=== PATIENT | male | born 1950 | race Caucasian/White ===

== ENCOUNTER 2024-03-11 22:16 | Emergency (ER) | payer OTHER, SELFPAY ==
[2024-03-11 22:20] VITALS: BP 186/103
[2024-03-11 22:38] LABS: Urine Albumin Negative (Neg - Trace); Urine Bilirubin Negative (Negative); Urine Character Clear (Clear); Urine Color Straw; Urine Glucose Negative (Negative); Urine Ketone Negative (Negative); Urine Leukocyte Negative (Negative); Urine Nitrite Negative (Negative); Urine Occult Blood Negative (Negative); Urine Specific Gravity 1.005 (<1.030); Urine Urobilinogen Negative (Neg - 1+)
[2024-03-12 00:36] VITALS: BP 138/78
[2024-03-12 00:37] LABS: % Basophils 0.9 % (0-2); % Eosinophils 2.9 % (0-6); % Immature Granulocytes 0.4 % (0-0.5); % Monocytes 6.9 % (1.7-9.3); % Neutrophils 67.9 % (42.2-75.2); Absolute Basophils 0.1 10^3/uL (0-0.2); Absolute Eosinophils 0.3 10^3/uL (0-0.7); Absolute Immature Granulocytes 0.1 10^3/uL (0-0.05); Absolute Lymphocytes 2.4 10^3/uL (1.2-3.4); Absolute Monocytes 0.8 10^3/uL (0.1-0.6); Absolute Neutrophils 7.7 10^3/uL (1.4-6.5); Hemoglobin 11.5 g/dL (13.0-18.0); Mean Corp Hgb Conc. 35.9 g/dL (33.0-37.0); Mean Corpuscular Hgb 29.6 pg (27.0-31.0); Mean Corpuscular Volume 82.5 fL (80.0-94.0); Mean Platelet Volume 10.1 fL (7.4-10.4); Nucleated Red Blood Cells % 0 % (-); Platelet Count 255 10^3/uL (130-400); Red Blood Cell Count 3.88 10^6/uL (4.70-6.10); Red Cell Dist. Width 12.4 % (11.5-14.5); White Blood Cell Count 11.4 10^3/uL (4.8-10.8)
--- NOTE | 2024-03-12 00:47 | ED.GENMED ---
History of Present Illness
General
Chief Complaint: Fever
Source: patient
Exam Limitations: none
Time Seen by Provider: 03/11/24 23:27
Travel History
Have you had any contact with someone who has COVID-19?: No
Do you have any symptoms of coronavirus? Fever > 100 degrees, chills, cough, shortness of breath, sore throat, loss of taste or smell, muscle aches, or headache?: No
History of Present Illness
History of Present Illness:
73-year-old male with history of cardiac disease [id number] diabetes hypertension presents with the onset of diffuse body tremors weakness feeling off and subtle confusion. Once this started he had 2 large bowel movements these were
formed. He denies a cough. He denies significant headache. He states since being here he is felt much better. He denies any urinary symptoms. No other complaints at this time
Past History
Past History
ED Past Medical History: CAD, HTN, Hypercholesterolemia, NIDDM, [place] and Other (Presumed optic neuritis right eye July 2023)
ED Past Surgical History: Cardiac, Orthopedic and Other
Patient has exhibited threatening behavior?: No
PSI?: No
Social History
Tobacco: Non-smoker
Alcohol: Occasional
Drug: None
Personal:
Living: with family
Employment: Employed
Family History
Family History: Other (Reviewed and noncontributory)
Phy Exam
Physical Exam
Physical Exam:
General: Well-appearing male nontoxic no acute respiratory distress HEENT: Normocephalic atraumatic neck is supple
Pupils equal round reactive to light
Heart: Regular rate and rhythm no murmurs lungs: Clear to auscultation bilaterally no wheezing
Neurologic exam: Alert and oriented x 3 no facial asymmetry strength on exam no meningeal signs no tremor
Extremities: No cyanosis or edema
Course
Orders/Labs/Results
Orders:
Orders
06/07/24 22:24
ECG [Electrocardiogram (*1)] Urgent
Reason for Study: Vertigo / Dizzy
03/11/24 22:25
CT Head W/o Iv Contrast Urgent
Comment:
Reason For Exam: unsteadiness
EKG- Treatment ONCE
03/11/24 22:29
Urine Culture Reflexed from UA [Urinalysis Reflex To Culture] Urgent
Date Specimen was Collected: 03/11/24
Time Specimen was Collected: 22:25
03/11/24 23:33
CMP [Comprehensive Metabolic Panel] Urgent
Complete Blood Count/With Diff Urgent
03/12/24 00:00
CR Chest - 2 Views Urgent
Reason For Exam: fever
Abnormal Lab Results
03/12/24
00:20
WBC 11.4 H 10^3/uL
(4.8-10.8)
RBC 3.88 L 10^6/uL
(4.70-6.10)
Hgb 11.5 L g/dL
(13.0-18.0)
Hct 32.0 L %
(39.0-52.0)
Abs Immat Gran (auto) 0.1 H 10^3/uL
(0-0.05)
Absolute Neuts (auto) 7.7 H 10^3/uL
(1.4-6.5)
Absolute Monos (auto) 0.8 H 10^3/uL
(0.1-0.6)
BUN 24 H mg/dl
(9-20)
Glucose 140 H mg/dl
(70-99)
03/12/24 00:20
03/12/24 00:20
Vital Signs
Initial and Last Documented VS:
Initial Vital Signs
Temp Pulse Resp BP Pulse Ox
99.7 F 98 18 186/103 98
03/11/24 22:20 03/11/24 22:20 03/11/24 22:20 03/11/24 22:20 03/11/24 22:20
Last Documented Vital Signs
Temp Pulse Resp BP Pulse Ox
98.5 F 90 18 138/78 95
03/11/24 23:30 03/12/24 00:36 03/12/24 00:36 03/12/24 00:36 03/12/24 00:36
MDM/Problems Addressed
Differential Diagnosis Includes:
Patient notes onset of tremors not feeling well fatigue. Question possible viral illness versus infectious process versus electrolyte abnormality patient now feels nearly back to baseline. Labs pending CT pending chest x-ray pending
*Critical Care Note
Total Time (30-74mins, 75-104mins- exclusive of procedures): Not Applicable
Update Note
Update Note:
Patient reexamined back to normal. Has no complaints offer upon reassessment looks nontoxic. Workup here without significant finding CT negative chest x-ray clear hemoglobin stable at 11.5. At this point no indication for admission to hospital.
Return precautions were given otherwise he was advised to follow-up with family doctor question possible viral illness
ED Attending Note
-
Portions of this chart may have been created with voice recognition software.� Occasional wrong word or��sound alike� substitutions may have occurred due to the inherent limitations of voice recognition software.
Discharge Plan
Departure
Patient Disposition: Home (Routine Discharge)
Date of Disposition: 03/12/24
Time of Disposition: 01:30
Patient with high blood pressure during this ER visit?: No
Discharge Problem:
Acute viral syndrome
Instructions: Viral Syndrome (DC)
Prescriptions:
No Action
clopidogrel 75 MG tablet
75 mg PO DAILY
aspirin 81 MG tablet,delayed release (DR/EC)
81 mg PO DAILY
flaxseed oil 1,000 MG capsule
3,000 mg PO DAILY
fluticasone propionate 1 SPRAY spray,suspension
1 spray intranasal DAILY PRN (Reason: breathing)
Patient Comments:
PRN; taken several months ago
ezetimibe 10 MG tablet
10 mg PO HS
tamsulosin 0.4 MG capsule
0.8 mg PO DAILY
metformin 500 MG tablet
1,000 mg PO BID@0800,1700
amitriptyline 10 MG tablet
10 mg PO HS
nitroglycerin 0.4 MG tablet, sublingual
0.4 mg sublingual [id number] PRN (Reason: chest pain)
amlodipine 10 MG tablet
10 mg PO DAILY Qty: 30 3RF
rosuvastatin 20 MG tablet
20 mg PO QPM 0RF
ascorbic acid (vitamin C) [Vitamin C] 1,000 MG tablet
3,000 mg PO DAILY
cholecalciferol (vitamin D3) [Vitamin D3] 25 mcg (1,000 unit) Tablet
50 mcg PO DAILY
multivitamin Tablet
1 tab PO DAILY
carvedilol 25 mg tablet
25 mg PO BID
sildenafil 50 mg Tablet
50 mg PO DAILYPRN PRN (Reason: ED)
famotidine 20 mg tablet
20 mg PO BIDPRN PRN (Reason: acid reflux/heartburn)
levothyroxine 125 mcg tablet
125 mcg PO DAILY AT 0700
finasteride 5 mg tablet
5 mg PO DAILY
diazepam 5 mg tablet
5 mg PO HSPRN PRN (Reason: sleep)
Patient Comments:
07/30/2023: last filled 06/09/23, 14 tabs for 14 days from [facility]#[id number]
valsartan 160 mg tablet
160 mg PO BID
coenzyme Q10 [Co Q-10] 100 mg Capsule
100 mg PO DAILY
Ozempic 0.25 mg or 0.5 mg (2 mg/3 mL) pen injector
0.5 mg SC CAMACHO
Referrals:
Pauline Zeng MD [Family Provider] -
Activity Restrictions/Additional Instructions:
Rest. Drink plenty of fluids. Use Tylenol as needed for fever. Return if worse otherwise follow-up with family doctor
Interventions
Interventions:
*Risk Screen - Suicide Last Done: 03/11/24 23:15
*General Assessment Last Done: 03/11/24 22:20
*Neglect/Abuse Screening Last Done: 03/11/24 22:20
ED- Fall Risk Assessment Last Done: 03/11/24 23:15
ED- Neurological Assessment Last Done: 03/11/24 23:15
ED-Skin Assessment Last Done: 03/11/24 23:15
Discharge Date and Time
Print Language: KYRGYZ
[2024-03-12 00:53] LABS: ALT (SGPT) 18 U/L (0-50); AST (SGOT) 21 U/L (17-59); Albumin 4.3 g/dl (3.5-5.0); Alkaline Phosphatase 51 U/L (38-126); Blood Urea Nitrogen 24 mg/dl (9-20); Calcium 9.9 mg/dl (8.4-10.2); Carbon Dioxide 24 mmol/L (22-30); Chloride 104 mmol/L (98-107); Glucose 140 mg/dl (70-99); Potassium 3.8 mmol/L (3.5-5.1); Sodium 141 mmol/L (135-145); Total Bilirubin 0.9 mg/dl (0.2-1.3); Total Protein 7.1 g/dl (6.3-8.2); eGFR > 60.00
[2024-03-12 01:54] VITALS: BP 155/83
== END 2024-03-12 01:55 | disposition home or self-care (01) ==
LOC: EMR 22:16
PROVIDERS: Emergency Medicine; Physician Assistant; EMERGENCY PHYSICIAN Emergency Medicine; FAMILY PHYSICIAN Internal Medicine
DX: B34.9 Viral infection, unspecified (principal); R25.1 Tremor, unspecified; R41.0 Disorientation, unspecified; R53.1 Weakness; I25.10 Atherosclerotic heart disease of native coronary artery without angina pectoris; I10 Essential (primary) hypertension; E11.9 Type 2 diabetes mellitus without complications; E78.00 Pure hypercholesterolemia, unspecified; I25.2 Old myocardial infarction; Z79.82 Long term (current) use of aspirin; Z88.2 Allergy status to sulfonamides
CPT/HCPCS: 99285; 70450; 71046; 80053; 81003; 85025; 93005

== ENCOUNTER → 2024-12-13 09:35 | Outpatient (REF) | payer OTHER, SELFPAY | LOC: HWRAD 09:35 | PROVIDERS: ATTENDING PHYSICIAN Internal Medicine | DX: M54.2 Cervicalgia (principal) | CPT/HCPCS: 72050 ==

== ENCOUNTER 2025-03-17 06:53 | Inpatient (IN) | payer OTHER, SELFPAY ==
[2025-03-17] VITALS (46 sets, daily range): BP systolic 98–159; BP diastolic 62–89; BMI 28.5; BMI 29.5
--- NOTE | 2025-03-17 03:42 | ED.GENMED ---
History of Present Illness
General
Chief Complaint: Chest Pain
Source: patient and family ( was present at the bedside)
Exam Limitations: none
Time Seen by Provider: 03/17/25 03:39
Nursing documentation reviewed up to this point in time: agreed with
History of Present Illness
History of Present Illness:
Note:
CHIEF COMPLAINT(S)
Chest pain.
HISTORY OF PRESENT ILLNESS
The patient, who has a previous history of coronary stents, presented with chest pain beginning in the evening around 10:30 PM. He described the pain as severe enough to warrant attention. The patient has had five coronary stents placed in three
different procedures and also has a history of supraventricular tachycardia (SVT). He is currently on blood thinners, specifically a generic form of Eliquis. The chest pain radiates down the back of his arm and into his hand. He denies sweating
associated with the chest pain. The patient mentioned being a reformed smoker.
REVIEW OF SYSTEMS
- Cardiovascular: Chest pain radiating to the arm, history of coronary stents, history of supraventricular tachycardia.
- Musculoskeletal: Pain radiating down the arm.
MEDICATIONS
Currently taking clopidogrel
PHYSICAL EXAM
- General: The patient does not appear to be in distress at the moment.
- Cardiovascular: Not diaphoretic.
PROBLEM LIST
Acute:
- Chest pain with radiation to the arm.
Chronic:
- History of coronary artery disease with multiple stents.
- Supraventricular tachycardia.
DIFFERENTIAL DIAGNOSIS
The Differential Diagnosis includes, in no particular order and is not limited to:
1. Acute coronary syndrome.
2. Unstable angina.
3. Myocardial infarction.
4. Aortic dissection.
5. Pulmonary embolism.
6. Costochondritis.
7. Esophageal spasm.
8. Gastroesophageal reflux disease.
9. Pericarditis.
10. Panic attack.
EKG
My independent EKG interpretation is:
- Rhythm: Normal sinus rhythm
- Heart Rate: 81 beats per minute
- IN Interval: First-degree AV block with a IN interval of 228 milliseconds
- QRS Duration: Normal
- QT Interval: Normal
- Alvo: Normal
- Abnormalities: No evidence of acute ischemia
- Morphology: Similar to EKG dated March 11, 2024
CARE-UPDATE
03/17/25 - 03:50
The patient experienced chest pain starting around 10:30 p.m. the previous night, which was different from their usual neck pain that required physical therapy. The EKG was normal, showing no changes since 2003, reducing the likelihood of a
significant myocardial infarction. The patient rated the current pain as 4-5 out of 10, and has a history of a minor heart attack. There was no current leg swelling or edema, but the patient noted feeling sluggish during recent gym visits. The plan
includes repeating cardiac enzymes, obtaining a chest X-ray, and conducting blood work. If results are normal, the patient will be discharged with a follow-up arranged through Dr. Church office; admission will be considered if any concerning
abnormalities are detected.
Disposition:
DIAGNOSIS
- Chest pain with suspected acute coronary syndrome
SUMMARY OF ENCOUNTER
The patient presented to the emergency department with complaints of chest pain. He has a history of coronary artery disease with multiple stents and an elevated history of supraventricular tachycardia. Given his complaints and risk factors, an EKG
was performed, which showed no evidence of acute ischemia but a first-degree AV block. He was evaluated, and his troponin levels were found to be elevated at 0.083, which is higher than previous values from 2022.
DISPOSITION
Admit
CONSIDERATION FOR ADMISSION
Admission was considered due to the elevated troponin levels and ongoing chest pain despite treatment.
ASSESSMENT
The patient is likely experiencing an acute coronary event, considering the elevated troponin levels and persistent chest pain.
EMERGENCY TREATMENTS ADMINISTERED
Nitroglycerin was administered but did not alleviate the patients chest pain. He was also administered heparin.
MANAGEMENT OF THE PATIENTS CARE WAS DISCUSSED WITH
A consult was made to Dr. Preston group for further management.
PLAN
The patient will be admitted to the hospital service for further evaluation and management. Cardiac enzymes will be monitored, and continuous cardiac monitoring will be started. A possible coronary intervention will be considered based on further
evaluation and response to initial treatment.
INDEPENDENT INTERPRETATION OF TESTS
My independent interpretation of troponin indicates an elevation to 0.083, which suggests possible myocardial damage, consistent with an acute coronary event. Previous levels in 2022 were less than 0.012, confirming this elevation.
MEDICATION RECONCILIATION
Heparin was administered following troponin elevation. The patients current medications, including blood thinners and clopidogrel, were reviewed considering the new findings.
MEDICAL DECISION MAKING
The patient presented with acute chest pain, raising concerns of acute coronary syndrome. The elevated troponin and pre-existing cardiovascular conditions increased the diagnostic complexity and risk of potential severe cardiac events. The decision
to admit was guided by the need for intensive monitoring, evaluation, and potential intervention. The patients response to administered medications was closely monitored, and appropriate specialists consulted to optimize management.
Past History
Past History
ED Past Medical History: CAD, HTN, Hypercholesterolemia, NIDDM, CT and Other (Presumed optic neuritis right eye July 2023)
ED Past Surgical History: Cardiac, Orthopedic and Other
Patient has exhibited threatening behavior?: No
PSI?: No
Social History
Tobacco: Non-smoker
Alcohol: Occasional
Drug: None
Personal:
Living: with family
Employment: Employed
Family History
Family History: Other (Reviewed and noncontributory)
Review of Systems
Review of Systems
Allergies reviewed?: Yes
All Other Systems: ROS reviewed and negative except as documented in HPI and ROS
Cardiac: Reports chest pain
Phy Exam
General Physical Exam
General Presentation: well appearing and mild distress
General Skin: warm and dry
General Habitus: normal
General Mental: alert
General Hydration: appears well hydrated
ENT Exam
ENT Exam: EOMI, pharynx normal, neck supple and normocephalic
Eye Exam
Eye Exam: PERRL, cornea clear and conjunctiva normal
Cardiovascular Exam
Cardiovascular Exam: regular rate/rhythm, no edema, no murmur and normal peripheral pulses
Pulmonary Exam
Pulmonary Exam: lungs clear, no respiratory distress, no rales, no crackles, no rhonchi, no stridor, no wheezing and no cough
Gastrointestinal Exam
Gastrointestinal Exam: normal bowel sounds, non tender, soft, no organomegaly, no pulsatile mass and non distended
Neurological Exam
Neurological Exam: alert, oriented x3, no motor deficits and speech normal
Musculoskeletal Exam
Musculoskeletal Exam: full ROM and no edema
Skin Exam
Skin Exam: normal color, warm/dry, no rash and no petechia
Psychiatric Exam
Psychiatric Exam: normal mood/affect
Scores
Heart Score for Chest Pain Patients
STEMI patient?: No
History: Highly Suspicious
ECG: Nonspecific Repolarization
Age: >/= 65 years
Risk Factors: >/= 3 Risk Factors or History of CAD
Troponin: >1 - <3 x Normal Limit
Heart Score for Chest Pain Patients: 8
Heart Score Risk: 72.7 % MACE over next 6 weeks
Course
Orders/Labs/Results
Orders:
Orders
03/17/25 03:29
EKG [Electrocardiogram (*1)] Urgent
Reason for Study: Chest Pain
EKG- Treatment ONCE
03/17/25 03:40
CR Chest - 2 Views Urgent
Comment:
Reason For Exam: Chest pain
03/17/25 03:51
Basic Metabolic Panel Urgent
Comment: NO K
Cardiovascular Evaluation Urgent
Comment: ADD ON
Complete Blood Count/With Diff Urgent
Glycohemoglobin (HgbA1c) Urgent
NT-proBNP Urgent
PTT Urgent
Prothrombin Time Urgent
TSH Urgent
Troponin I Q3H
03/17/25 04:52
Nitroglycerin Sublingual [Nitrostat (Sublingual)] 0.4 mg SL NOW STA
03/17/25 04:55
Nitroglycerin Sublingual [Nitrostat (Sublingual)] 0.4 mg .ROUTE .STK-MED ONE
03/17/25 05:09
Heparin 5,000 units IV NOW STA
Nursing to Place Non Medication Order As Directed
Physician Order: PTT 6 hours after initial start of Heparin infusion
Above order entered?: Yes
03/17/25 05:15
Heparin [id number] Units/250 ml 25,000 units in 250 ml IV PER PROTOCOL
Weight to be used for heparin protocol in kilograms (kg):: 90
Protocol:: Cardiac Tx/Acute Coronary
PTT Goal Range to be used:: PTT 73 to 111 seconds
Order type:: Initial
INITIAL Infusion Dose (UNITS/KG/hr) & then follow protocol:: 12 units/kg/hr
Infusion Dose in UNITS/hr & then follow protocol (UNITS/hr):: 1,000
INFUSION RATE in mL/hr & then follow protocol (mL/hr):: 10
PTT less than or equal to 64 seconds:: Increase rate by 200 units/hr (+ 2 mL/hr)
PTT 64.1 to 72.9 seconds:: Increase rate by 100 units/hr (+ 1 mL/hr)
PTT 73 to 111 seconds:: Target Range. No change in rate.
PTT 111.1 to 130.9 seconds:: Decrease rate by 100 units/hr (- 1 mL/hr)
PTT 131 to 199.9 seconds:: HOLD for 1 hr. Then decrease rate by 200 units/hr (- 2 mL/hr)
PTT greater than or equal to 200 seconds:: HOLD for 2 hrs & Notify Provider. Then decrease by 200 units/hr (-
2 mL/hr)
Lab follow-up:: Each change, PTT q6h until 2 consecutive are therapeutic. Then PTT
daily.
03/17/25 05:33
Heparin [id number] Units/250 ml 25,000 units in 250 ml .ROUTE .STK-MED
03/17/25 05:50
Admit/Transfer Patient As Directed
Co-Sign Provider:
Level of Care: Inpatient admission
Assign to:: IVU
Physician / Group: Ayush
Diagnosis: NSTEMI
Reason for Hospitalization: NSTEMI
Expected length of stay greater than two midnights?: Yes
ELOS- Estimated Length of Stay in days: 2
I certify the patient meets the requirements for IP care: Yes
Aspirin Chewable [Low Strength Aspirin] 243 mg PO NOW STA
Nitroglycerin Sublingual [Nitrostat (Sublingual)] 0.4 mg SL NOW STA
03/17/25 05:51
PRN Pain Medication Management As Directed
May give lesser potent ordered pain med per pt: Yes
preference::
Protocol:: Medication orders for pain may be administered in a
manner that supports deferring to patient preference
when the pt is:
- Requesting an ordered lesser potent pain medication.
Least to most potent pain medications are defined
as: acetaminophen < NSAID < tramadol < opioids
(morphine, oxycodone, hydromorphone).
- Requesting a lesser dose of the same medication IF
ORDERED.
- Requesting a less intrusive route of administration
if both routes are prescribed by the provider (PO <
IV).
03/17/25 05:54
Code Status As Directed
Resuscitation Status: Full Code
03/17/25 05:55
Aspirin Chewable [Low Strength Aspirin] 243 mg .ROUTE .STK-MED ONE
03/17/25 Breakfast
NPO
Allow oral meds: Yes
Allow clear liquids: Sips of Clears
Flush (0.9% Sodium Chloride) [Flush (Nss)] See Dose Instructions IV PER PROTOCOL
Nitroglycerin 100 mg/250 ml [Nitroglycerin Premix] 100 mg in 250 ml IV PER PROTOCOL
Initial dose in mcg/min, then titrate:: 5
Titrate to keep:: MAP 70-100 mmHg
Titrate by mcg/min:: 5 mcg/min, may increase by 10 mcg/min if dose > 20 mcg/min
Frequency of titrations (minutes):: every 3-5 minutes
Maximum dose in mcg/min:: 200
Begin to taper infusion when:: Remained at goal for 2hrs
Taper by mcg/min:: 5 mcg/min
Frequency of taper (minutes) if patient maintains goal:: 30
Taper to off?: Yes
If infusion off & no longer maintaining goal:: Contact Provider
03/17/25 06:05
Troponin I Q3H
03/17/25 06:21
Nitroglycerin 100 mg/250 ml [Nitroglycerin Premix] 100 mg in 250 ml .ROUTE .STK-MED
03/17/25 07:36
Acetaminophen [Tylenol] 650 mg PO Q4HPRN PRN
Famotidine [Pepcid] 20 mg PO BIDPRN PRN acid reflux/heartburn
Insulin Aspart Corrective Low [Novolog Flexpen-Low Resistance] See Protocol SC Q6
Levothyroxine [Synthroid] 125 mcg PO DAILY @ 0600
Mag Hydrox/Al Hydrox/Simeth [Maalox] 30 ml PO Q4HPRN PRN
03/17/25 07:36
Echo 2D MMode Color/Doppler Routine
Reason for Study: chest pain
CARDIOLOGY CONSULT Routine
Consulting Provider: Alec Barrera
Was physician already notified: Yes
Reason for consult: chest pain/nstemi
VTE Contraindication Routine
VTE Mechanical Device Contraindication: Medical Contraindication
Pharmocologic Contraindication: Medical Contraindication
Heparin Protocol- PTT Orders As Directed
PTT per Heparin protocol: -Obtain CBC and baseline PTT - if not already collected.
-Obtain PTT 6 hours from start of infusion. Then, every 6 hours until 2 consecutive
PTT's are therapeutic. Then, PTT Daily.
-With each rate change, obtain PTT every 6 hours until 2 consecutive PTT's are
therapeutic. Then, PTT Daily.
Activity As Directed
Activity Level: With Assistance
Bedside Glucose Monitoring As Directed
Frequency: AC&HS
INT (Intravenous Needle Therapy) As Directed
Comment: maintain peripheral IV access
Intake/ Output As Directed
Frequency: Per unit guidelines
Notify MD As Directed
Notify physician if: PTT is greater than or equal to 200.
Vital Signs As Directed
Frequency: q4h
Weight As Directed
Frequency: Once
O2 Therapy [RESP] Routine
Nasal Cannula Liter Flow: 2 LPM
Titrate/Wean O2 to maintain O2 sat greater than (%): 90
Special Instructions: 2 liters/minute as needed for pulse oximetry less than 90%
Pulse Ox/spot Check [RESP] Routine
Quantity: 1
Special Instructions: on admission and then every shift if on oxygen
03/17/25 08:00
Amlodipine [Norvasc] 10 mg PO DAILY
Aspirin Low Dose EC [Aspir Low (Enteric Coated)] 81 mg PO DAILY
Carvedilol [Coreg] 25 mg PO BID
Clopidogrel Bisulfate [Plavix] 75 mg PO DAILY
Finasteride [Proscar] 5 mg PO DAILY
Tamsulosin [Flomax] 0.8 mg PO DAILY
Valsartan [Diovan] 160 mg PO BID
03/17/25 17:00
Amitriptyline [Elavil] 10 mg PO HS
03/17/25 18:00
Rosuvastatin Calcium [Crestor] 20 mg PO QPM
03/17/25 22:00
Ezetimibe [Zetia] 10 mg PO HS
03/18/25 00:10
Lipid Profile [Cardiovascular Evaluation] IN AM
03/19/25 06:00
Complete Blood Count/No Diff Q2D
Comment: notify provider: Platelet count < 130,000 or decrease by 50% from baseline
03/21/25 06:00
Complete Blood Count/No Diff Q2D
Comment: notify provider: Platelet count < 130,000 or decrease by 50% from baseline
03/23/25 06:00
Complete Blood Count/No Diff Q2D
Comment: notify provider: Platelet count < 130,000 or decrease by 50% from baseline
03/25/25 06:00
Complete Blood Count/No Diff Q2D
Comment: notify provider: Platelet count < 130,000 or decrease by 50% from baseline
03/27/25 06:00
Complete Blood Count/No Diff Q2D
Comment: notify provider: Platelet count < 130,000 or decrease by 50% from baseline
03/29/25 06:00
Complete Blood Count/No Diff Q2D
Comment: notify provider: Platelet count < 130,000 or decrease by 50% from baseline
03/31/25 06:00
Complete Blood Count/No Diff Q2D
Comment: notify provider: Platelet count < 130,000 or decrease by 50% from baseline
04/02/25 06:00
Complete Blood Count/No Diff Q2D
Comment: notify provider: Platelet count < 130,000 or decrease by 50% from baseline
Abnormal Lab Results
03/17/25 03/17/25
03:51 06:05
RBC 3.68 L 10^6/uL
(4.70-6.10)
Hgb 11.1 L g/dL
(13.0-18.0)
Hct 31.8 L %
(39.0-52.0)
MPV 10.6 H fL
(7.4-10.4)
Absolute Lymphs (auto) 4.2 H 10^3/uL
(1.2-3.4)
Absolute Monos (auto) 0.7 H 10^3/uL
(0.1-0.6)
Chloride 109 H mmol/L
(98-107)
BUN 25 H mg/dl
(9-20)
Glucose 127 H mg/dl
(70-99)
Hemoglobin A1c 6.7 H %
(4.0-5.6)
Calcium 10.3 H mg/dl
(8.4-10.2)
Troponin I 0.083 H* ng/ml 0.465 H* D ng/ml
Triglycerides 187 H mg/dl
(10-149)
VLDL Cholesterol, Calc 37 H mg/dl
(0-30)
03/17/25 03:51
03/17/25 03:51
Vital Signs
Initial and Last Documented VS:
Initial Vital Signs
Temp Pulse Resp BP Pulse Ox
98.6 F 86 14 149/85 98
03/17/25 03:40 03/17/25 03:40 03/17/25 03:40 03/17/25 03:40 03/17/25 03:40
Last Documented Vital Signs
Temp Pulse Resp BP Pulse Ox
98.4 F 89 16 136/80 96
03/18/25 21:29 03/18/25 22:00 03/18/25 21:29 03/18/25 21:29 03/18/25 21:29
*Critical Care Note
Total Time (30-74mins, 75-104mins- exclusive of procedures): 35 ( Critical care statement: A total of 35 minutes of critical care time was provided for this patient. This time is separate from time utilized to perform the aforementioned documented
procedures. Aggregate critical care time includes only time during which I was engaged in work direct)
ED Attending Note
-
Portions of this chart may have been created with voice recognition software.� Occasional wrong word or��sound alike� substitutions may have occurred due to the inherent limitations of voice recognition software.
Discharge Plan
Departure
Patient Disposition: Admit
Date of Disposition: 03/17/25
Time of Disposition: 05:14
Admit to: IVU
Presentation/result/management discussed w/ accepting MD/DO: Hospitalist
Condition: Fair
Discharge Problem:
CAD (coronary artery disease), ACS (acute coronary syndrome)
Interventions
Interventions:
*Risk Screen - Suicide Last Done: 03/17/25 03:37
*General Assessment Last Done: 03/17/25 07:00
*Neglect/Abuse Screening Last Done: 03/17/25 07:00
*ED- Fall Risk Assessment Last Done: 03/17/25 07:00
*ED COVID-19 Vaccine History Last Done: 03/17/25 07:00
*Nursing Disposition Last Done: 03/17/25 07:47
ED- Cardiac Assessment Last Done: 03/17/25 06:02
Discharge Date and Time
Discharge Date/Time: 03/17/25 07:48
[2025-03-17 04:12] LABS: % Basophils 0.8 % (0-2); % Immature Granulocytes 0.3 % (0-0.5); % Lymphocytes 39.1 % (20.5-51.1); % Monocytes 6.6 % (1.7-9.3); % Neutrophils 48.2 % (42.2-75.2); Absolute Basophils 0.1 10^3/uL (0-0.2); Absolute Eosinophils 0.5 10^3/uL (0-0.7); Absolute Lymphocytes 4.2 10^3/uL (1.2-3.4); Absolute Monocytes 0.7 10^3/uL (0.1-0.6); Absolute Neutrophils 5.2 10^3/uL (1.4-6.5); Hematocrit 31.8 % (39.0-52.0); Hemoglobin 11.1 g/dL (13.0-18.0); Mean Corp Hgb Conc. 34.9 g/dL (33.0-37.0); Mean Corpuscular Hgb 30.2 pg (27.0-31.0); Mean Corpuscular Volume 86.4 fL (80.0-94.0); Mean Platelet Volume 10.6 fL (7.4-10.4); Nucleated Red Blood Cells % 0 % (-); Platelet Count 248 10^3/uL (130-400); Red Blood Cell Count 3.68 10^6/uL (4.70-6.10); Red Cell Dist. Width 12.1 % (11.5-14.5); White Blood Cell Count 10.8 10^3/uL (4.8-10.8)
[2025-03-17 04:22] LABS: INR 0.96; PT 13.3 Sec (11.4-14.6)
[2025-03-17 04:23] LABS: APTT 31.8 Sec (23.4-35.0)
[2025-03-17 04:43] LABS: Blood Urea Nitrogen 25 mg/dl (9-20); Calcium 10.3 mg/dl (8.4-10.2); Carbon Dioxide 25 mmol/L (22-30); Chloride 109 mmol/L (98-107); Estimated Creatinine Clearance 57 ml/min; Glucose 127 mg/dl (70-99); Sodium 142 mmol/L (135-145); eGFR > 60.00
[2025-03-17 04:49] LABS: NT-proBNP 89.7 pg/ml; Troponin I 0.083 ng/ml
[2025-03-17] MEDS: NITROSTAT (SUBLINGUAL) 0.4 MG SL ×2 (04:57→05:57)
[2025-03-17 05:05] LABS: TSH 1.35 uIU/ml (0.47-4.68)
--- NOTE | 2025-03-17 05:30 | HPS.HSE ---
Family Physician
-
Family Physician: Rommel Alvarez MD
Chief Complaint
-
Chest pain
History of Present Illness
Patient is a 74-year-old was a possible history of CAD status post [address] about 10 years ago and currently on aspirin Plavix and statin, hypertension, SVT status post ablation, car-iwsmvng-hzxaahmjz diabetes BPH and hypothyroidism
who presents to the emergency department with worsening chest pain over the last few hours.
Patient reports that he has developed increasing fatigue and some dyspnea on exertion over the last 1 week. Then a few days ago he started noticing neck pain on the left side of his neck. Tonight he reported that the neck pain radiated to his
shoulder left arm and also into his chest. He felt this was similar to his prior episode of AR. He denied any associated nausea or vomiting. He denies any diaphoresis. He reports compliance with his medications and denies any recent stress test.
On arrival in the emergency department he was afebrile, blood pressure was 150/90 with a pulse of 81. Was satting 100% on room air. ECG shows a sinus rhythm rate of 81 with 4 degree AV block and no acute ST or T wave changes. Troponin is elevated
at 0.083. BNP is within normal limits. Chest x-ray was clear.
CBC was unremarkable. Electrolytes BUN/creatinine with unremarkable with potassium pending.
Medical History
Past Medical History
Past Medical History: Reports Other (HTN, HLD, CAD, GERD, BPH, hypothyroidism)
Past Surgical History: Reports None
Social History
Tobacco: Non-smoker
Alcohol: Occasional
Drug: None
Living: With Family
Family History
Family History: Not pertinent
Allergies / Home Medications
Allergies reflects when Allergies were last updated in [facility].
Home Medications with original date entered in [facility]
Allergy/Medication List:
Allergies
Allergy/AdvReac Type Severity Reaction Status Date / Time
Sulfa (Sulfonamide Allergy Mild Rash Verified 10/26/23 19:19
Antibiotics)
Home Medications
aspirin 81 mg tablet,delayed release 81 mg PO DAILY 11/18/12
clopidogrel 75 mg tablet 75 mg PO DAILY 11/18/12
ezetimibe 10 mg tablet 10 mg PO HS 11/18/12
flaxseed oil 1,000 mg capsule 3,000 mg PO DAILY 11/18/12
fluticasone propionate 50 mcg/actuation nasal spray,suspension 1 spray intranasal DAILY PRN breathing 11/18/12
tamsulosin 0.4 mg capsule 0.8 mg PO DAILY 11/23/13
amitriptyline 10 mg tablet 30 mg PO HS 04/30/17
metformin 500 mg tablet 500 mg PO BID@0800,1700 04/30/17
nitroglycerin 0.4 mg sublingual tablet 0.4 mg sublingual [id number] PRN chest pain 04/30/17
amlodipine 10 mg tablet 10 mg PO DAILY #30 tabs 05/01/17
rosuvastatin 20 mg tablet 20 mg PO QPM 05/01/17
ascorbic acid (vitamin C) 1,000 mg tablet (Vitamin C) 3,000 mg PO DAILY 07/16/21
cholecalciferol (vitamin D3) 25 mcg (1,000 unit) tablet (Vitamin D3) 50 mcg PO DAILY 07/16/21
benzonatate 200 mg capsule 200 mg PO TIDPRN PRN cough 07/30/23
carvedilol 25 mg tablet 25 mg PO BID 07/30/23
coenzyme Q10 100 mg capsule (Co Q-10) 100 mg PO DAILY 07/30/23
diazepam 5 mg tablet 5 mg PO HSPRN PRN sleep 07/30/23
famotidine 20 mg tablet 20 mg PO BIDPRN PRN acid reflux/heartburn 07/30/23
finasteride 5 mg tablet 5 mg PO DAILY 07/30/23
levothyroxine 125 mcg tablet 125 mcg PO DAILY 07/30/23
multivitamin 1 tab PO DAILY 07/30/23
semaglutide 0.25 mg or 0.5 mg (2 mg/3 mL) subcutaneous pen injector (Ozempic) 0.5 mg SC CAMACHO 07/30/23
sildenafil 50 mg tablet 50 mg PO DAILYPRN PRN ed 07/30/23
valsartan 160 mg tablet 160 mg PO BID 07/30/23
Review of Systems
-
Constitutional: Reports No Symptoms
EENT: Reports No Symptoms
Respiratory: Reports No Symptoms
Cardiac: Reports Chest Pain
Abdomen/GI: Reports No Symptoms
: Reports No Symptoms
Musculoskeletal: Reports No Symptoms
Skin: Reports No Symptoms
Neurological: Reports No Symptoms
Endocrine: Reports No Symptoms
Hematologic/Lymphatic: Reports No Symptoms
Psych: Reports No Symptoms
Physical Exam
Vital Signs
Vital Signs
Temp Pulse Resp BP Pulse Ox
98.6 F 81 16 153/89 98
03/17/25 03:40 03/17/25 05:09 03/17/25 05:09 03/17/25 05:09 03/17/25 05:09
Physical Exam
General: No Apparent Distress
HEENT: PERRLA
Respiratory: Clear
Cardiac: S1/S2 and Regular Rhythm
Breast: Deferred by me
GI: Soft and Non Tender
Rectal: Deferred by Provider
Genito-urinary: Deferred by me
Musculoskeletal: No Edema
Skin: Warm and Dry; No Rash
Neuro: AO x 3
Hematologic/Lymphatic: No Lymphadenopathy
Psych: Calm
Laboratory Results
-
03/17/25 03:51
03/17/25 03:51
Laboratory Results
PT 13.3 Sec (11.4-14.6) 03/17/25 03:51
INR 0.96 03/17/25 03:51
APTT 31.8 Sec (23.4-35.0) 03/17/25 03:51
Total Bilirubin Cancelled 03/17/25 03:51
AST Cancelled 03/17/25 03:51
ALT Cancelled 03/17/25 03:51
Alkaline Phosphatase Cancelled 03/17/25 03:51
Troponin I 0.083 ng/ml H* 03/17/25 03:51
Data Reviewed
-
Diagnostic Radiology: Image Personally Visualized and interpreted
Medical Tests (Nuc Med, Echo, EKG etc): Image Personally Visualized and interpreted
Lab Data: Labs Reviewed by me
Old Records: Reviewed
Impression/Plan
-
IMPRESSION:
74-year-old with past medical history of CAD status post multiple stents with LAD stent placed about 10 years ago presenting to the emergency department with episode of chest pain described as initially neck pain radiating down to his left arm and
chest. His pain is transiently improved with sl-ntg x 1, currently 6 out of 10. It is not reproducible with palpation. His ECG is nonischemic. However his troponin is elevated at 0.083. Repeated doses of nitro with improvement only to return.
He hemodynamically stable and nontoxic-appearing. Last sildenafil was over 2 weeks ago.
PLAN:
Chest pain�NSTEMI suspected
- Admit to IVU
- N.p.o. for now
- Will start nitroglycerin drip
- Aspirin to 273
- Heparin drip
- Continue with Plavix and statin
- continue coreg
- cycle enzymes, Echo
- Lipid panel and A1c in am
- cardiology consulted and notified
Diabetes
- Holding metformin
- Insulin sliding scale Q6 for now
Hypertension
- Continue valsartan w/ hold parameters (MAP < 80)
- Continue amlodipine with hold parameters (MAP < 80) to allow for nitroglycerin
BPH
- Continue tamsulosin/finasteride
VTE prophylaxis on heparin drip
CODE STATUS full code
[2025-03-17] MEDS: HEPARIN 25000 UNITS/250 ML IV (05:40)
[2025-03-17] MEDS: HEPARIN 5000 UNITS IV (05:42)
[2025-03-17] MEDS: LOW STRENGTH ASPIRIN 243 MG PO (05:56)
[2025-03-17] MEDS: NITROGLYCERIN PREMIX 250 IV (06:29)
[2025-03-17 07:17] LABS: Troponin I 0.465 ng/ml
[2025-03-17 08:11] LABS: Glucose - Point of Care 146 mg/dl (70-99)
--- NOTE | 2025-03-17 08:22 | W.PN.HOSP.TC ---
Today's Communication/Plan
-
Please update home medication list
N.p.o.
Cardiology consult
Trend troponin
Assessment / Plan
Assessment / Plan
Gen-AAOx3, NAD
HEENT-NC, AT, anicteric, clear oral mm
Neck-supple
CV-reg, no M, +S1/S2
Lungs-clear B/L
Abd-soft, NT, ND
Ext-no edema
Musculoskeletal-no cyanosis, clubbing
Skin-warm and dry
Neuro-grossly non-focal
Psych-calm, cooperative
CAD/NSTEMI -currently chest pain-free. Currently on IV heparin, IV nitroglycerin. Last troponin 0.46, repeat pending.
N.p.o., awaiting catheterization. Cardiology consulted. Echocardiogram pending.
Last cardiac catheterization was November 2013. History of LAD stent 2003, RCA stent 2005, subsequent stenting of the AV groove/RPL 2, distal RCA, proximal RCA in 2013.
Has been faithfully taking aspirin and Plavix.
Hypercalcemia -10.3. Will recheck.
DM2 without hyperglycemia -hold metformin, semaglutide. Check hemoglobin A1c. Continue low resistance aspart scale.
Hypothyroidism -continue levothyroxine.
Hyperlipidemia
Essential hypertension -stable.
Chronic normocytic anemia -unclear etiology. Hemoglobin at baseline.
CKD 3A -stable.
GERD
BPH
History of right eye optic neuritis -2022. Treated with pulsed dose IV Solu-Medrol in the hospital, prednisone taper on discharge.
Obesity due to excess calories -BMI 29.5.
Full code
Anticipated Discharge: 24 - 48 hours
Subjective/Interval History
-
Date of Service: March 17, 2025
Patient seen and examined. Denies chest pain currently.
Objective Data
-
Labs:
Laboratory Results
03/17/25
03:51
WBC 10.8
Hgb 11.1 L
Hct 31.8 L
Plt Count 248
PT 13.3
INR 0.96
APTT 31.8
Sodium 142
Potassium
Chloride 109 H
Carbon Dioxide 25
BUN 25 H
Creatinine 1.2
Glucose 127 H
Calcium 10.3 H
Total Bilirubin Cancelled
AST Cancelled
ALT Cancelled
Alkaline Phosphatase Cancelled
Vital Signs:
Vital Signs
Temp Pulse Resp BP Pulse Ox
97.5 F 84 18 133/75 96
03/17/25 07:44 03/17/25 07:45 03/17/25 07:44 03/17/25 07:43 03/17/25 07:44
Review of Systems
-
History Source: Patient
All other systems: Reviewed and negative
--- NOTE | 2025-03-17 08:35 | CON.CAR ---
Addendum entered and electronically signed by Charlie Simms MD 03/17/25 10:43:
I saw and examined the patient.
The SUPERVISOR OF OFFICIALS's note was reviewed and I agree with the note.
Comment:
74-year-old man with CAD (status post PCI LAD 2004, RCA 2006, RCA 2013), hypertension, hyperlipidemia, and type 2 diabetes who presents with chest/arm pain. He reports that for the past week he has not felt well. Played golf and did not want to
finish all 18 holes which is not normal for him. Was so fatigued felt like he needed to take a nap afterwards. Last night he had pain in his left arm and left anterior chest that felt like his prior [place] so presented to the ER. Troponin 0.08 ->
0.465. ECG NSR with first-degree AV block, no evidence of ischemia. He was started on heparin, nitroglycerin, and given full dose aspirin. His chest/arm pain is currently a 10/14.
Physical exam notable for RRR, no murmurs, no lower extremity edema, clear lungs, 2+ radial pulses.
He is NPO. We will plan for coronary angiography. Continue heparin, DAPT, statin, and beta-elva. Raimann Machine Operator aware.
Original Note:
Consultation
Consultation Request
Date/Time Consultation Requested: 03/17/2025 07:30
Date/Time Consultation Performed: 03/17/2025 07:50
Requesting Provider: Dr. Peacock
Performing Provider: ASTRID Lackey for Dr. Simms
Reason for Consultation: NSTEMI
Medical History
-
Chief Complaint: Chest pain
History of Present Illness:
Joseph Castillo is a 74-year-old male (known to Dr. Alvarez, his primary hat mender), with CAD (LAD 2004, RCA 2006, RCA 2013) on DAPT, SVT (ablation [facility], Dr. Suresh 2016), hypertension, dyslipidemia, and type 2 diabetes mellitus who presented to
the emergency department the chief complaint of chest pain. He has chronic neck pain. Over the past week, he developed dyspnea on exertion. Specifically while playing golf and at the gym. This was abnormal for him. Last evening he had his usual
neck pain but it radiated down into his left arm and into his left anterior chest. This was reminiscent of his prior [place]. He did not have any diaphoresis but was actually shivering. He presented to the emergency department. His initial troponin
0.083. Troponin this morning 0.485. He is currently chest pain-free on a nitroglycerin drip. EKG sinus rhythm without acute ischemia.
Past Medical History
Past Medical History: Arrhythmias (SVT [ablation, Dr. Suresh 2017]), CAD, HTN, Hypercholesterolemia and NIDDM
Social History
Tobacco: Former Smoker
Alcohol: Occasional
Personal: (Tosin)
Family History
Family History: Reviewed & Not Pertinent
Allergies / Home Medications
Allergy/AdvReac Type Severity Reaction Status Date / Time
Sulfa (Sulfonamide Allergy Mild Rash Verified 03/17/25 03:37
Antibiotics)
�Medication �Instructions �Recorded �Confirmed �Type
aspirin 81 mg tablet,delayed 81 mg PO DAILY Blood Clot 11/18/12 03/12/24 History
release Prevention/Tx
clopidogrel 75 mg tablet 75 mg PO DAILY Blood Clot 11/18/12 03/12/24 History
Prevention/Tx
ezetimibe 10 mg tablet 10 mg PO HS High Cholesterol 11/18/12 03/12/24 History
flaxseed oil 1,000 mg capsule 3,000 mg PO DAILY Supplement 11/18/12 03/12/24 History
fluticasone propionate 50 1 spray intranasal DAILY PRN 11/18/12 03/12/24 History
mcg/actuation nasal breathing
spray,suspension
tamsulosin 0.4 mg capsule 0.8 mg PO DAILY Urinary Issue 11/23/13 03/12/24 History
amitriptyline 10 mg tablet 10 mg PO HS Mental Health 04/30/17 03/12/24 History
metformin 500 mg tablet 1,000 mg PO BID@0800,1700 Diabetes 04/30/17 03/12/24 History
nitroglycerin 0.4 mg sublingual 0.4 mg sublingual [id number] PRN 04/30/17 03/12/24 History
tablet chest pain
amlodipine 10 mg tablet 10 mg PO DAILY #30 tabs 05/01/17 03/12/24 Rx
rosuvastatin 20 mg tablet 20 mg PO QPM 05/01/17 03/12/24 Rx
ascorbic acid (vitamin C) 1,000 mg 3,000 mg PO DAILY Supplement 07/16/21 03/12/24 History
tablet (Vitamin C)
cholecalciferol (vitamin D3) 25 50 mcg PO DAILY Supplement 07/16/21 03/12/24 History
mcg (1,000 unit) tablet (Vitamin
D3)
carvedilol 25 mg tablet 25 mg PO BID Blood Pressure 07/30/23 03/12/24 History
coenzyme Q10 100 mg capsule (Co 100 mg PO DAILY Supplement 07/30/23 03/12/24 History
Q-10)
diazepam 5 mg tablet 5 mg PO HSPRN PRN sleep 07/30/23 03/12/24 History
famotidine 20 mg tablet 20 mg PO BIDPRN PRN acid 07/30/23 03/12/24 History
reflux/heartburn
finasteride 5 mg tablet 5 mg PO DAILY prostate issue 07/30/23 03/12/24 History
levothyroxine 125 mcg tablet 125 mcg PO DAILY AT 0700 Thyroid 07/30/23 03/12/24 History
multivitamin 1 tab PO DAILY Supplement 07/30/23 03/12/24 History
semaglutide 0.25 mg or 0.5 mg (2 0.5 mg SC CAMACHO Diabetes 07/30/23 03/12/24 History
mg/3 mL) subcutaneous pen injector
(Ozempic)
sildenafil 50 mg tablet 50 mg PO DAILYPRN PRN ED 07/30/23 03/12/24 History
valsartan 160 mg tablet 160 mg PO BID Blood Pressure 07/30/23 03/12/24 History
Review of Systems
-
History Source: Patient
All other systems: Negative unless noted
Constitutional: No Symptoms
EENT: No Symptoms
Respiratory: No Symptoms
Cardiac: No Symptoms
Abdomen/GI: No Symptoms
: No Symptoms
Musculoskeletal: No Symptoms
Skin: No Symptoms
Neurological: No Symptoms
Endocrine: No Symptoms
Hematologic/Lymphatic: No Symptoms
Physical Exam
Vital Signs
Temp Pulse Resp BP Pulse Ox
97.5 F 84 18 133/75 96
03/17/25 07:44 03/17/25 07:45 03/17/25 07:44 03/17/25 07:43 03/17/25 07:44
Lab Results
03/17/25 03:51
03/17/25 03:51
Troponin I Cancelled 03/17/25 12:00
Qcj-X-Oxdkyiwjtwa Pept 89.7 pg/ml 03/17/25 03:51
Physical Exam
General: Well Developed, Well Nourished, No Apparent Distress and Comfortable
HEENT: Normocephalic, Anicteric and Moist Mucous Membranes
Respiratory: Clear and Non Labored Respirations
Cardiac: S1/S2 and Regular Rhythm; Negative Peripheral Edema
Breast: Deferred by me
GI: Soft, Non Tender, Non Distended and Normal Bowel Sounds
Rectal: Deferred by Provider
Genito-urinary: No Costovertebral Tender
Musculoskeletal: No Clubbing, No Cyanosis and No Edema
Skin: Warm and Dry
Neuro: AO x 3
Hematologic/Lymphatic: No Lymphadenopathy
Psych: Calm
Impression / Plan
-
I/P: 74M with CAD (LAD 2003, RCA 2005, RCA 2013) on DAPT, SVT (ablation [facility], Dr. Suresh 2017), hypertension, dyslipidemia, and type 2 diabetes mellitus who presented to the emergency department the chief complaint of chest pain.
Primary hat mender: Dr. Alvarez
NSTEMI
- Currently chest pain-free on nitroglycerin drip, continue
- Trend troponin to peak, currently 0.465
- He is on DAPT with aspirin and clopidogrel in the outpatient setting
- EKG without acute ischemia
- Echocardiogram today
- Cardiac catheterization today, NPO
Coronary artery disease
- On DAPT, prior PCI to LAD and RCA, last PCI in 2013
- NSTEMI as above
Hypertension
- Stable medical therapy, continue
- He had a cough with lisinopril, and is now on valsartan
Mixed hyperlipidemia
- Goal LDL <55
- Fasting lipid panel added to morning labs
PSVT, status post ablation with Dr. Suresh in 2017 at [facility], stable without palpitations
Type 2 diabetes mellitus, with hyperglycemia, HgbA1c pending
Data Reviewed
-
EKG: Report Reviewed by me
Medical Tests (Nuc Med, Echo etc): Report Reviewed by me
Labs: Labs Reviewed by me
Old Records: Reviewed
[2025-03-17] MEDS: COREG 25 MG PO ×2 (08:37→20:19)
[2025-03-17] MEDS: ASPIR LOW (ENTERIC COATED) 81 MG PO (08:37)
[2025-03-17] MEDS: PLAVIX 75 MG PO (08:37)
[2025-03-17] MEDS: PROSCAR 5 MG PO (08:37)
[2025-03-17] MEDS: FLOMAX 0.8 MG PO (08:37)
[2025-03-17] MEDS: SYNTHROID 125 MCG PO (08:37)
[2025-03-17] MEDS: DIOVAN 160 MG PO (08:38)
[2025-03-17 10:11] LABS: Glycohemoglobin (HgbA1c) 6.7 % (4.0-5.6)
[2025-03-17] MEDS: NORVASC 10 MG PO (10:22)
[2025-03-17 12:08] LABS: ACT-LR - POC 250 Seconds (116-155)
[2025-03-17 12:22] LABS: ACT-LR - POC 310 Seconds (116-155)
[2025-03-17 13:11] LABS: HDL Cholesterol 29 mg/dl; LDL Cholesterol, Calculated 49 mg/dl; Total Cholesterol 115 mg/dl (50-199); Triglyceride 187 mg/dl (10-149); Very Low Density Lipoprotein 37 mg/dl (0-30)
--- NOTE | 2025-03-17 13:28 | ITS.CL.PN ---
[employer] Plant Site Manager - Procedure Note
Procedure
Procedure Note:
CARDIAC CATHETERIZATION REPORT
Date of Procedure: 03/17/2025
Referring: Dr. Rich Early MD
Indication: NSTEMI
PROCEDURE(S)
1. left heart catheterization
2. coronary angiography
3. attempted PCI to RCA
ACCESS: 6F right radial artery (closure: radial band)
CATHETERS
1. 6F JR4
2. 6F JL4
3. 6F AL0.75 guide
MODERATE SEDATION: 60 minutes of moderate sedation was utilized. An independent medical education specialist was present to assist with and help manage the patient's level of consciousness and physiologic status.
CORONARY ANGIOGRAPHY
Dominance: Right
LM: Large vessel with mild disease.
LAD: Large vessel giving rise to a moderate caliber D1 and large D2. There is a stent spanning the D2 with severe focal ISR just before the takeoff of the D2. There is also focal moderate-severe ostial stenosis of the D2. There is focal mild ostial
stenosis of the D1. There is otherwise mild disease.
LCx: Moderate caliber vessel giving rise to a moderate caliber OM1, small OM2, and moderate caliber OM3. There is diffuse mild disease.
RCA: Large vessel giving rise to a large RPDA, moderate caliber RPL1, moderate caliber RPL2, and moderate caliber RPL3. There is a prior stent extending from the RPAV into the RPL2 with a 100% percent occlusion in the distal portion of the stent
within the RPL2. There is LUKE I flow in the distal vessel. There are patent stents in the proximal and distal RCA. The entire vessel is tortuous, calcified, with diffuse moderate disease including moderate ISR of the distal RCA stent.
Attempted PCI to RPL2 for acute MN
Given suspicion that the intervention would require significant backup support, a 6 Swedish AL 0.75 guide was placed in the RCA and a Runthrough wire used to traverse the stenosis and placed in the distal RPL2 branch. A 2.0 x 12 mm semicompliant
balloon was unable to be delivered past even the mid-RCA, thus a 6F Guideliner was used with balloon assisted tracking performed to bring the Guideliner to the mid vessel at which point it would not advance further. With Guideliner support the
balloon was able to be advanced further but still not to the distal stent. Similar results were met with a 1.5 x 6 mm balloon. A 2.0 x 6 mm balloon was able to be advanced to the origin of the lesion within the RPL2 stent but would not cross the
lesion. Jimbo wiring with a Whisper wire was attempted but the wire would not cross the stenosis with the initial wire in place. Microcatheter exchanged for a support wire was not felt to be helpful as it would cause wire bias within the tortuous
segments further preventing delivery of equipment. In order to successfully deliver balloons and stents to the lesion, it was felt that groin access with a large bore catheter would be necessary, as well as aggressive delivery techniques such as
inchworm facilitated deep Guideliner delivery and/or anchor ballooning, which would significantly raise her risk for damage to the proximal and mid vessel requiring further intervention. Given that the patient was chest pain-free in the territory of
the RPL2 relatively small, the decision was made to abandon further attempts at PCI and medically managed the patient's NSTEMI. Of note, the complex disease involving the stented mid LAD and jailed diagonal branch was not felt to be the culprit
lesion for the patient's presentation. Intervention on this would almost certainly require dedicated bifurcation strategy given high risk of closure of the diagonal, and would thus be of moderate complexity and risk. Thus, it was also decided that
this none culprit disease would be managed medically as well. The wire and guide were removed. Final angiography revealed baptism of flow to the RPL2 branch after wire removal with LUKE III flow and no iatrogenic damage to the vessel. A TR band
was placed for radial hemostasis. The patient was reloaded with 300 mg Plavix.
RADIATION: dose 972 mGy; DAP 54.3 Gy*cm2; fluoroscopy time 22.3 min
CONCLUSIONS
1. Severe coronary artery disease as described with culprit 100% stenosis of the RPL 2 within previously stented segment. Angiography also notable for progression of disease in a 2004 LAD stent which was not felt to be a culprit lesion for the
patient's presentation.
2. Unsuccessful attempted PCI to the RPL2. A balloon could not be delivered due to inadequate backup support in the setting of severe vessel tortuosity and prior stents. Further escalation of techniques to achieve equiptment delivery was felt to be
of undue risk given that the patient was chest pain-free and the territory involved small.
RECOMMENDATIONS
1. Medical management of NSTEMI with 48 hours heparin and continuation of DAPT.
2. Titration of antianginal medications, with initiation of oral nitrate in place of IV nitro drip.
3. Should patient have future symptoms attributable to his RCA or LAD disease, complex PCI first coronary artery bypass grafting could be considered
Copy to: Dr. Rommel Alvarez MD (vending machine refiller); Dr. Pauline Zeng MD (PCP)
Signed: Fortino Mesa MD, PhD
[2025-03-17 13:46] LABS: Glucose - Point of Care 122 mg/dl (70-99)
[2025-03-17] MEDS: IMDUR (EXTENDED RELEASE) 30 MG PO (14:29)
[2025-03-17] MEDS: TYLENOL 650 MG PO (15:01)
--- NOTE | 2025-03-17 15:02 | CM ---
Reviewed chart. Met with Mr. Castillo to review discharge plans. He states prior to admission he resides with his spouse in a first floor condo without any steps to enter. He states prior to admission he was independent with ambulation and adls. He
states he does not have any DME in the home. He states he has a prescription plan. Medical work-up in progress. The discharge plan is to return home with his spouse when medically stable.
[2025-03-17] MEDS: CRESTOR 20 MG PO (16:57)
[2025-03-17] MEDS: ELAVIL 10 MG PO (16:57)
[2025-03-17] MEDS: PEPCID 20 MG PO (20:19)
[2025-03-17] MEDS: DIOVAN PO (20:20)
[2025-03-17 22:14] LABS: Glucose - Point of Care 120 mg/dl (70-99)
[2025-03-17] MEDS: ZETIA 10 MG PO (22:15)
[2025-03-18] VITALS (7 sets, daily range): BP systolic 118–136; BP diastolic 64–80; BMI 29.8
[2025-03-18] MEDS: HEPARIN 25000 UNITS/250 ML IV ×2 (00:19→21:31)
[2025-03-18 00:43] LABS: APTT 53.7 Sec (23.4-35.0)
[2025-03-18 00:48] LABS: ALT (SGPT) 18 U/L (0-50); AST (SGOT) 54 U/L (17-59); Albumin 3.6 g/dl (3.5-5.0); Alkaline Phosphatase 42 U/L (38-126); Blood Urea Nitrogen 20 mg/dl (9-20); Calcium 9.4 mg/dl (8.4-10.2); Carbon Dioxide 26 mmol/L (22-30); Chloride 108 mmol/L (98-107); Estimated Creatinine Clearance 67 ml/min; Glucose 105 mg/dl (70-99); HDL Cholesterol 27 mg/dl; LDL Cholesterol, Calculated 30 mg/dl; Potassium 3.9 mmol/L (3.5-5.1); Sodium 139 mmol/L (135-145); Total Bilirubin 0.8 mg/dl (0.2-1.3); Total Cholesterol 96 mg/dl (50-199); Total Protein 5.9 g/dl (6.3-8.2); Triglyceride 199 mg/dl (10-149); Very Low Density Lipoprotein 39 mg/dl (0-30); eGFR > 60.00
[2025-03-18 00:55] LABS: Hematocrit 26.9 % (39.0-52.0); Hemoglobin 9.4 g/dL (13.0-18.0); Mean Corp Hgb Conc. 34.9 g/dL (33.0-37.0); Mean Corpuscular Volume 85.9 fL (80.0-94.0); Mean Platelet Volume 10.4 fL (7.4-10.4); Platelet Count 213 10^3/uL (130-400); Red Blood Cell Count 3.13 10^6/uL (4.70-6.10); Red Cell Dist. Width 12.2 % (11.5-14.5); White Blood Cell Count 10.4 10^3/uL (4.8-10.8)
--- NOTE | 2025-03-18 01:02 | PTCARENOTE ---
Assumed care on pt at 1900, aaox3, denies chest/arm/neck pain. Heparin gtt infusing at 1000/hr and nitro gtt infusing at 2.5mcg/min. Nitro infusion turned off at 2014. R radial dsg clean and intact, site slightly ecchymotic and raised, but soft and
not tender, area marked. SR on the monitor, with HR 70's, Pox 96% RA right hand. Pt educated again on RUE restrictions, verbalizes understanding and in agreement. call lawrence within reach.
[2025-03-18] MEDS: TYLENOL 650 MG PO ×2 (04:41→13:13)
[2025-03-18] MEDS: SYNTHROID 125 MCG PO (04:41)
[2025-03-18 07:00] LABS: APTT 73.8 Sec (23.4-35.0)
--- NOTE | 2025-03-18 08:10 | W.PN.HOSP.TC ---
Today's Communication/Plan
-
Monitor hemoglobin
Continue current care
Assessment / Plan
Assessment / Plan
Gen-AAOx3, NAD
HEENT-NC, AT, anicteric, clear oral mm
Neck-supple
CV-reg, no M, +S1/S2
Lungs-clear B/L
Abd-soft, NT, ND
Ext-no edema
Musculoskeletal-no cyanosis, clubbing
Skin-warm and dry
Neuro-grossly non-focal
Psych-calm, cooperative
CAD/NSTEMI -currently chest pain-free. Troponin peaked at 12.0, now trending down.
Cardiac catheterization performed March 17, showing severe CAD with culprit 100% stenosis of the RPL 2 within previously stented segment. Also with progression of disease in a 2003 LAD stent which was not felt to be the culprit lesion. Unsuccessful
attempt at PCI to the RPL 2.
Cardiology now recommends medical management with 48 hours of IV heparin and continuation of dual antiplatelet therapy. Should he have further symptoms attributable to his RCA or LAD disease then complex PCI with possible CABG would be considered.
Isosorbide mononitrate 30 mg daily started yesterday. Off IV nitroglycerin.
Hypercalcemia - resolved.
DM2 without hyperglycemia -hold metformin, semaglutide. Hemoglobin A1c 6.7%. Glucose 105 this morning. Continue low resistance aspart scale.
Hypothyroidism -continue levothyroxine.
Hyperlipidemia
Essential hypertension -stable.
Acute on chronic normocytic anemia -unclear etiology. Admission hemoglobin 11.1, 9.4 this morning. Doubt acute bleed but monitor closely. Will recheck hemoglobin later today.
CKD 3A -stable.
GERD
BPH
History of right eye optic neuritis -2022. Treated with pulsed dose IV Solu-Medrol in the hospital, prednisone taper on discharge.
Obesity due to excess calories
Full code
Anticipated Discharge: Within 24 hours
Subjective/Interval History
-
Date of Service: March 18, 2025
Patient seen and examined. No complaints. Denies chest pain.
Objective Data
-
Labs:
Laboratory Results
03/18/25 03/18/25 03/18/25
00:10 06:38 13:30
WBC 10.4
Hgb 9.4 L
Hct 26.9 L
Plt Count 213
APTT 53.7 H 73.8 H Pending
Sodium 139
Potassium 3.9
Chloride 108 H
Carbon Dioxide 26
BUN 20
Creatinine 1.0
Glucose 105 H
Calcium 9.4
Total Bilirubin 0.8
AST 54
ALT 18
Alkaline Phosphatase 42
Vital Signs:
Vital Signs
Temp Pulse Resp BP Pulse Ox
98.2 F 78 20 118/74 93
03/18/25 08:01 03/17/25 21:25 03/18/25 08:01 03/17/25 20:20 03/18/25 08:01
I&O
03/17/25 03/18/25 03/19/25
06:59 06:59 06:59
Intake Total 600 / 600
Balance 600 / 600
Review of Systems
-
History Source: Patient
All other systems: Reviewed and negative
[2025-03-18] MEDS: PROSCAR 5 MG PO (08:21)
[2025-03-18] MEDS: DIOVAN 160 MG PO ×2 (08:21→19:28)
[2025-03-18] MEDS: ASPIR LOW (ENTERIC COATED) 81 MG PO (08:21)
[2025-03-18] MEDS: COREG 25 MG PO ×2 (08:21→19:28)
[2025-03-18] MEDS: FLOMAX 0.8 MG PO (08:22)
[2025-03-18] MEDS: PLAVIX 75 MG PO (08:22)
[2025-03-18] MEDS: NORVASC 10 MG PO (08:22)
[2025-03-18] MEDS: IMDUR (EXTENDED RELEASE) 30 MG PO (08:23)
[2025-03-18 09:05] LABS: Glucose - Point of Care 131 mg/dl (70-99)
--- NOTE | 2025-03-18 10:28 | W.PN.CD ---
Today's Communication / Plan
-
Continue medical management of NSTEMI with heparin x 48 hours (to end 6/15 AM) and long-acting nitrate
Continue DAPT, beta-elva, and statin
Impression / Plan
-
I/P: 74M with CAD (LAD 2004, RCA 2006, RCA 2013) on DAPT, SVT (ablation [facility], Dr. Suresh 2016), hypertension, dyslipidemia, and type 2 diabetes mellitus who presented to the emergency department the chief complaint of chest pain.
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
NSTEMI
- Diagnosis is a threat to life. He is on IV heparin which requires frequent lab monitoring for drug toxicity
- [facility] 03/17/2025: Severe [place] CAD, severe focal ISR of LAD stent, moderate to severe ostial stenosis of D2, mild ostial stenosis of D1, 100% stenosis of RPL 2 within previously stented segment (culprit lesion)
- [facility] 03/17/2025: LVEF 55-60%, no regional wall motion abnormalities, aortic sclerosis
- Plan is for medical management with 48 hours heparin (will stop 6/15 AM), DAPT, BB
- Continue aspirin and Plavix
- LDL 30. Continue statin.
- He is chest pain-free on Imdur 30 mg daily. Uptitrate as needed.
Hypertension
- Stable medical therapy, continue
- He had a cough with lisinopril, and is now on valsartan
PSVT, status post ablation with Dr. Suresh in 2017 at [facility], stable without palpitations
Type 2 diabetes mellitus, with hyperglycemia, HgbA1c pending
Subjective: He feels great today. Much better than yesterday. No recurrence of chest or arm pain/pressure.
Physical Exam
Vital Signs/Labs
Vital Signs
Temp Pulse Resp BP Pulse Ox
98.2 F 78 20 118/74 93
03/18/25 08:01 03/17/25 21:25 03/18/25 08:01 03/17/25 20:20 03/18/25 08:01
03/17/25 03/18/25 03/19/25
06:59 06:59 06:59
Actual Weight 198 lb 6.656 oz 201 lb 15.095 oz
03/18/25 00:10
PT 13.3 Sec (11.4-14.6) 03/17/25 03:51
INR 0.96 03/17/25 03:51
APTT 73.8 Sec (23.4-35.0) H 03/18/25 06:38
Triglycerides 199 mg/dl (10-149) H 03/18/25 00:10
LDL Cholesterol, Calc 30 mg/dl 03/18/25 00:10
VLDL Cholesterol, Calc 39 mg/dl (0-30) H 03/18/25 00:10
HDL Cholesterol 27 mg/dl 03/18/25 00:10
TSH 1.35 uIU/ml (0.47-4.68) 03/17/25 03:51
03/17/25
03:51
Oaa-O-Wzxxwibawvu Pept 89.7
LAB Results
03/17/25 03/17/25 03/17/25
03:51 06:05 09:00
Troponin I 0.083 H* 0.465 H* D Cancelled
03/17/25 03/17/25 03/17/25
11:30 12:00 14:03
Troponin I Cancelled Cancelled 4.240 H* D
03/17/25 03/18/25 03/18/25
17:30 00:10 06:38
Troponin I Cancelled 12.000 H* 9.540 H*
03/18/25
13:30
Troponin I Cancelled
Physical Exam
Constitutional: No acute distress and Comfortable
Cardiovascular: Rhythm & rate is regular, Pedal edema is absent, S1S2 is normal and Murmur/rub/gallop absent
Respiratory: Respiratory effort normal and Lungs clear to auscul.
Neuro/Psych: AO x 3
Other: Cath Site (R radial site soft, no erythema or swelling)
Data Reviewed
-
Date of Service: March 18, 2025
Medical Decision Making: Reviewed Test Results, Independent Historian Assessment, Test Interpretation and Review of Case with other Provider
EKG: Tracing Personally Visualized and interpreted
Echo: Report Reviewed by me
Labs: Labs Reviewed by me
--- NOTE | 2025-03-18 11:08 | PTCARENOTE ---
Pt OOB ambulating in [facility] his , malia well. No c/o chest pain or SOB.
[2025-03-18 13:18] LABS: Glucose - Point of Care 111 mg/dl (70-99)
[2025-03-18 14:56] LABS: Hematocrit 27.9 % (39.0-52.0); Hemoglobin 9.8 g/dL (13.0-18.0)
[2025-03-18 15:01] LABS: APTT 67.3 Sec (23.4-35.0)
[2025-03-18 17:47] LABS: Glucose - Point of Care 127 mg/dl (70-99)
[2025-03-18] MEDS: CRESTOR 20 MG PO (17:48)
[2025-03-18] MEDS: PEPCID 20 MG PO (17:49)
--- NOTE | 2025-03-18 20:14 | PTCARENOTE ---
Rec'd pt at change of shift. Pt AAO*3, VSS, and SR w 1st degree AV block on TELE monitor. Pt denies any pain or discomfort, R radial site CDI, dressing removed, and ecchymotic shadowing at site that is noted on previous assessment. Pt verbalizes
understanding of RUE restrictions and plan of care updated with pt. Heparin infusing as ordered. Pt resting with call lawrence in reach. See MAR and flowchart for full pt care and assessment.
[2025-03-18] MEDS: ZETIA 10 MG PO (21:31)
[2025-03-18] MEDS: ELAVIL 10 MG PO (21:31)
[2025-03-18 21:38] LABS: Glucose - Point of Care 105 mg/dl (70-99)
[2025-03-18 21:46] LABS: APTT 66.2 Sec (23.4-35.0)
[2025-03-19 05:22] VITALS: BP 126/73
[2025-03-19 05:24] VITALS: BP 126/73
[2025-03-19 05:45] VITALS: BMI 29.6
[2025-03-19 05:51] LABS: Hematocrit 27.2 % (39.0-52.0); Hemoglobin 9.4 g/dL (13.0-18.0); Mean Corp Hgb Conc. 34.6 g/dL (33.0-37.0); Mean Corpuscular Hgb 29.8 pg (27.0-31.0); Mean Corpuscular Volume 86.3 fL (80.0-94.0); Mean Platelet Volume 10.5 fL (7.4-10.4); Platelet Count 194 10^3/uL (130-400); Red Blood Cell Count 3.15 10^6/uL (4.70-6.10); Red Cell Dist. Width 12.2 % (11.5-14.5); White Blood Cell Count 8.3 10^3/uL (4.8-10.8)
[2025-03-19] MEDS: HEPARIN 25000 UNITS/250 ML IV (05:57)
[2025-03-19 06:02] LABS: APTT 87.7 Sec (23.4-35.0)
[2025-03-19] MEDS: SYNTHROID 125 MCG PO (06:10)
--- NOTE | 2025-03-19 07:58 | W.PN.HOSP.TC ---
Today's Communication/Plan
-
Discharge
Assessment / Plan
Assessment / Plan
Gen-AAOx3, NAD
HEENT-NC, AT, anicteric, clear oral mm
Neck-supple
CV-reg, no M, +S1/S2
Lungs-clear B/L
Abd-soft, NT, ND
Ext-no edema
Musculoskeletal-no cyanosis, clubbing
Skin-warm and dry
Neuro-grossly non-focal
Psych-calm, cooperative
CAD/NSTEMI -currently chest pain-free. Troponin peaked at 12.0, now trending down.
Cardiac catheterization performed March 17, showing severe CAD with culprit 100% stenosis of the RPL 2 within previously stented segment. Also with progression of disease in a 2003 LAD stent which was not felt to be the culprit lesion. Unsuccessful
attempt at PCI to the RPL 2.
Cardiology now recommends medical management with 48 hours of IV heparin and continuation of dual antiplatelet therapy. Should he have further symptoms attributable to his RCA or LAD disease then complex PCI with possible CABG would be considered.
Isosorbide mononitrate 30 mg daily started 03/17. Off IV nitroglycerin.
Can discontinue IV heparin this morning and discharge according to cardiology.
Hypercalcemia - resolved.
DM2 without hyperglycemia -hold metformin, semaglutide. Hemoglobin A1c 6.7%. Glucose controlled. Continue low resistance aspart scale.
Hypothyroidism -continue levothyroxine.
Hyperlipidemia -rosuvastatin, ezetimibe.
Essential hypertension -stable.
Acute on chronic normocytic anemia -unclear etiology. Admission hemoglobin 11.1, 9.4 this morning, stable. Follow-up as outpatient.
CKD 3A -stable.
GERD
BPH
History of right eye optic neuritis -2022. Treated with pulsed dose IV Solu-Medrol in the hospital, prednisone taper on discharge.
History of migraine headaches -did have a mild aura and transient mild headache right after catheterization. Resolved with Tylenol. Informed patient to avoid triptan medications such as rizatriptan given his ischemic heart disease. Recommend
follow-up with his neurologist.
Obesity due to excess calories
Full code
Dispo -medically stable for discharge home today. Discussed with cardiology. Outpatient follow-up.
32 minutes spent in discharge process.
Anticipated Discharge: Today
Subjective/Interval History
-
Date of Service: March 19, 2025
Patient seen and examined. No complaints. Feels well.
Objective Data
-
Labs:
Laboratory Results
03/18/25 03/19/25 03/19/25
21:26 05:36 12:00
WBC 8.3
Hgb 9.4 L
Hct 27.2 L
Plt Count 194
APTT 66.2 H 87.7 H Pending
Vital Signs:
Vital Signs
Temp Pulse Resp BP Pulse Ox
98.1 F 102 16 126/73 95
03/19/25 05:22 03/19/25 06:00 03/19/25 05:22 03/19/25 05:24 03/19/25 05:22
I&O
03/18/25 03/19/25 03/20/25
06:59 06:59 06:59
Intake Total 600 / 600 240 / 240
Balance 600 / 600 240 / 240
Review of Systems
-
History Source: Patient
All other systems: Reviewed and negative
[2025-03-19 08:03] VITALS: BP 138/74
--- NOTE | 2025-03-19 08:08 | W.DS.TRANS ---
DC Summary - Scheduling Coordinator
-
Discharge Instructions:
Discharge Diagnosis/Procedures Myocardial infarction, occluded RCA stent,
cardiac catheterization
Diet Diabetic, Carb Controlled,Low Cholesterol
Activity As tolerated
Driving Restrictions No driving for 24 hours
Bathing Restrictions None
Other Services Cardiac Rehab
Instructions:
Stand-Alone Forms: DC Instructions- Cath/EP Lab
Changes to Home Medications: Yes
Discharge Medications:
DC Medications w/original date entered in [facility]
aspirin 81 mg tablet,delayed release 81 mg PO DAILY Blood Clot Prevention/Tx 11/18/12
clopidogrel 75 mg tablet 75 mg PO DAILY Blood Clot Prevention/Tx 11/18/12
ezetimibe 10 mg tablet 10 mg PO HS High Cholesterol 11/18/12
flaxseed oil 1,000 mg capsule 3,000 mg PO DAILY Supplement 11/18/12
fluticasone propionate 50 mcg/actuation nasal spray,suspension 1 spray intranasal DAILY PRN breathing 11/18/12
tamsulosin 0.4 mg capsule 0.8 mg PO DAILY Urinary Issue 11/23/13
amitriptyline 10 mg tablet 10 mg PO HS Mental Health 04/30/17
metformin 500 mg tablet 1,000 mg PO BID@0800,1700 Diabetes 04/30/17
Held on 03/19/25. Instructions: Resume on 03/20/25. Resume ThursdayMarch 20.
nitroglycerin 0.4 mg sublingual tablet 0.4 mg sublingual [id number] PRN chest pain 04/30/17
amlodipine 10 mg tablet 10 mg PO DAILY #30 tabs 05/01/17
rosuvastatin 20 mg tablet 20 mg PO QPM 05/01/17
cholecalciferol (vitamin D3) 25 mcg (1,000 unit) tablet (Vitamin D3) 50 mcg PO DAILY Supplement 07/16/21
carvedilol 25 mg tablet 25 mg PO BID Blood Pressure 07/30/23
coenzyme Q10 100 mg capsule (Co Q-10) 100 mg PO DAILY Supplement 07/30/23
diazepam 5 mg tablet 5 mg PO HSPRN PRN sleep 07/30/23
famotidine 20 mg tablet 20 mg PO BIDPRN PRN acid reflux/heartburn 07/30/23
finasteride 5 mg tablet 5 mg PO DAILY prostate issue 07/30/23
levothyroxine 125 mcg tablet 125 mcg PO DAILY AT 0700 Thyroid 07/30/23
multivitamin 1 tab PO DAILY Supplement 07/30/23
semaglutide 0.25 mg or 0.5 mg (2 mg/3 mL) subcutaneous pen injector (Ozempic) 0.5 mg SC CAMACHO Diabetes 07/30/23
valsartan 160 mg tablet 160 mg PO BID Blood Pressure 07/30/23
isosorbide mononitrate 30 mg tablet,extended release 24 hr 30 mg PO DAILY #30 tabs 03/19/25
Home Medication Changes
Stop sildenafil
Stop rizatriptan
Pending Results: No
[2025-03-19 08:09] LABS: Glucose - Point of Care 146 mg/dl (70-99)
[2025-03-19] MEDS: DIOVAN 160 MG PO (09:53)
[2025-03-19] MEDS: PLAVIX 75 MG PO (09:54)
[2025-03-19] MEDS: ASPIR LOW (ENTERIC COATED) 81 MG PO (09:54)
[2025-03-19] MEDS: NORVASC 10 MG PO (09:54)
[2025-03-19] MEDS: IMDUR (EXTENDED RELEASE) 30 MG PO (09:54)
[2025-03-19] MEDS: COREG 25 MG PO (09:55)
[2025-03-19] MEDS: PROSCAR 5 MG PO (09:55)
[2025-03-19] MEDS: FLOMAX PO (09:56)
--- NOTE | 2025-03-19 11:08 | W.PN.CD ---
Today's Communication / Plan
-
Okay for discharge
We will see him in the office on 04/12 at 8:40 AM.
Impression / Plan
-
I/P: 74M with CAD (LAD 2004, RCA 2005, RCA 2013) on DAPT, SVT (ablation [facility], Dr. Suresh 2016), hypertension, dyslipidemia, and type 2 diabetes mellitus who presented to the emergency department the chief complaint of chest pain.
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
NSTEMI
- [facility] 03/17/2025: Severe [place] CAD, severe focal ISR of LAD stent, moderate to severe ostial stenosis of D2, mild ostial stenosis of D1, 100% stenosis of RPL 2 within previously stented segment (culprit lesion)
- TTE 03/17/2025: LVEF 55-60%, no regional wall motion abnormalities, aortic sclerosis
- S/p medical management with 48 hours heparin (stop 03/19 AM)
- Continue BB, aspirin and Plavix
- LDL 30. Continue statin.
- He is chest pain-free on Imdur 30 mg daily. Uptitrate as needed. If he continues to have pain despite medical management, will need to consider PCI versus bypass.
Hypertension
- Stable on medical therapy, continue
- He had a cough with lisinopril, and is now on valsartan
PSVT, status post ablation with Dr. Suersh in 2017 at [facility], stable without palpitations
Type 2 diabetes mellitus, with hyperglycemia, HgbA1c pending
Subjective: He feels fine. No complaints.
Physical Exam
Vital Signs/Labs
Vital Signs
Temp Pulse Resp BP Pulse Ox
97.5 F 74 18 138/74 96
03/19/25 08:11 03/19/25 08:03 03/19/25 08:11 03/19/25 09:53 03/19/25 08:11
03/18/25 03/19/25 03/20/25
06:59 06:59 06:59
Actual Weight 201 lb 15.095 oz 200 lb 9.93 oz
03/19/25 05:36
03/18/25 00:10
PT 13.3 Sec (11.4-14.6) 03/17/25 03:51
INR 0.96 03/17/25 03:51
APTT Cancelled 03/19/25 12:00
Triglycerides 199 mg/dl (10-149) H 03/18/25 00:10
LDL Cholesterol, Calc 30 mg/dl 03/18/25 00:10
VLDL Cholesterol, Calc 39 mg/dl (0-30) H 03/18/25 00:10
HDL Cholesterol 27 mg/dl 03/18/25 00:10
TSH 1.35 uIU/ml (0.47-4.68) 03/17/25 03:51
03/17/25
03:51
Oos-W-Vchshgjdveh Pept 89.7
LAB Results
03/17/25 03/17/25 03/17/25
03:51 06:05 09:00
Troponin I 0.083 H* 0.465 H* D Cancelled
03/17/25 03/17/25 03/17/25
11:30 12:00 14:03
Troponin I Cancelled Cancelled 4.240 H* D
03/17/25 03/18/25 03/18/25
17:30 00:10 06:38
Troponin I Cancelled 12.000 H* 9.540 H*
03/18/25
13:30
Troponin I Cancelled
Physical Exam
Constitutional: No acute distress and Comfortable
Cardiovascular: Rhythm & rate is regular, Pedal edema is absent, S1S2 is normal and Murmur/rub/gallop absent
Respiratory: Respiratory effort normal and Lungs clear to auscul.
Neuro/Psych: AO x 3
Other: Cath Site (Soft, no swelling or erythema)
Data Reviewed
-
Date of Service: March 19, 2025
Medical Decision Making: Reviewed Test Results, Independent Historian Assessment, Test Interpretation and Review of Case with other Provider
EKG: Tracing Personally Visualized and interpreted
Echo: Report Reviewed by me
Labs: Labs Reviewed by me
[2025-03-19 11:09] VITALS: BP 153/88
--- NOTE | 2025-03-19 12:37 | PTCARENOTE ---
Pt seen by Shahzad and Demi. Pt denies any discomfort, heparin infusion discontinued. Telemetry and IV device removed. Discharge instructions reviewed with pt and his regarding activity guidelines, medications and their possible side
effects, reporting cares and concerns and follow appt's. Excellent understanding verbalized. Pt escorted out via wheelchair and discharged to home.
== END 2025-03-19 12:25 | disposition home or self-care (01) | DRG 281 ==
LOC: IVU 06:53
PROVIDERS: Nurse Practitioner Adult Health; Student in an Organized Health Care Education/Training Program; ADMITTING PHYSICIAN Internal Medicine; ATTENDING PHYSICIAN Hospitalist; EMERGENCY PHYSICIAN Student in an Organized Health Care Education/Training Program; FAMILY PHYSICIAN Internal Medicine Cardiovascular Disease; OTHER PHYSICIAN Student in an Organized Health Care Education/Training Program
PROC: 4A023N7 Measurement of Cardiac Sampling and Pressure, Left Heart, Percutaneous Approach (ICD-10-PCS; 2025-03-17)
PROC: B2111ZZ Fluoroscopy of Multiple Coronary Arteries using Low Osmolar Contrast (ICD-10-PCS; 2025-03-17)
PROC: 02JY3ZZ Inspection of Great Vessel, Percutaneous Approach (ICD-10-PCS; 2025-03-17)
DX: I21.4 Non-ST elevation (NSTEMI) myocardial infarction (principal); T82.855A Stenosis of coronary artery stent, initial encounter; I25.10 Atherosclerotic heart disease of native coronary artery without angina pectoris; I44.0 Atrioventricular block, first degree; N18.31 Chronic kidney disease, stage 3a; E11.22 Type 2 diabetes mellitus with diabetic chronic kidney disease; E78.00 Pure hypercholesterolemia, unspecified; G89.29 Other chronic pain; M54.2 Cervicalgia; E78.2 Mixed hyperlipidemia; N40.0 Benign prostatic hyperplasia without lower urinary tract symptoms; K21.9 Gastro-esophageal reflux disease without esophagitis; E03.9 Hypothyroidism, unspecified; I12.9 Hypertensive chronic kidney disease with stage 1 through stage 4 chronic kidney disease, or unspecified chronic kidney disease; E66.09 Other obesity due to excess calories; E11.65 Type 2 diabetes mellitus with hyperglycemia; D64.9 Anemia, unspecified; E83.52 Hypercalcemia; Y83.1 Surgical operation with implant of artificial internal device as the cause of abnormal reaction of the patient, or of later complication, without mention of misadventure at the time of the procedure; I25.2 Old myocardial infarction; Z95.5 Presence of coronary angioplasty implant and graft; Z87.891 Personal history of nicotine dependence; Z88.2 Allergy status to sulfonamides; Z79.82 Long term (current) use of aspirin; Z79.02 Long term (current) use of antithrombotics/antiplatelets; Z79.51 Long term (current) use of inhaled steroids; Z79.890 Hormone replacement therapy; Z79.85 Long-term (current) use of injectable non-insulin antidiabetic drugs; Z68.29 Body mass index [BMI] 29.0-29.9, adult
CPT/HCPCS: 71046; 80048; 80053; 80061; 82962; 83036; 83880; 84443; 84484; 85014; 85018; 85025; 85027; 85347; 85610; 85730; 92941; 93005; 93306; 93454; 96365; 96366; 96367; 99152; 99153; 99291; C1725; C1887; C1894; Q9967

== ENCOUNTER 2025-04-05 08:40 | Inpatient (IN) | payer OTHER, SELFPAY ==
[2025-04-02 18:19] VITALS: BP 151/87
--- NOTE | 2025-04-02 18:40 | ED.GENMED ---
History of Present Illness
General
Chief Complaint: Cardiac Symptoms
Source: patient
Exam Limitations: none
Time Seen by Provider: 04/02/25 18:24
Nursing documentation reviewed up to this point in time: agreed with
History of Present Illness
History of Present Illness:
Patient is a 74-year-old male with past medical history of hypertension hyperlipidemia CAD, SVT, multiple stents on Plavix and aspirin presents to the ER for evaluation of chest pain. Patient reports today he has had intermittent episodes of chest
discomfort however resolved presently. He also felt intermittently dizzy. He is concerned because he was just admitted here March 17 and discharged the for an STEMI. He had a cardiac catheterization which showed severe CAD with culprit
100 percent stenosis of the RPL 2(which was previoulsy stented. PCI was attempted to the RPL 2 but was unsuccessful and patient was discharged on isosorbide mononitrate.
Patient also notes that he has a history of optical nerve neuritis and at times has blurry vision of his right eye but over the past day or 2 he has had intermittent blurry vision from both eyes worse on the right. He is asymptomatic. He does
report he has had a headache to the frontal aspect of his head ever since starting isosorbide.
He did take a NTG this am ..
PT is followed by DR Alvarez
Past History
Past History
ED Past Medical History: CAD, HTN, Hypercholesterolemia, NIDDM, [place] and Other (Presumed optic neuritis right eye July 2023)
ED Past Surgical History: Cardiac, Orthopedic and Other
Patient has exhibited threatening behavior?: No
PSI?: No
Social History
Tobacco: Non-smoker
Alcohol: Occasional
Drug: None
Personal:
Living: with family
Employment: Employed
Family History
Family History: Other (Reviewed and noncontributory)
Phy Exam
General Physical Exam
General Presentation: well appearing
General age: appears stated age
General Skin: warm and dry
General Habitus: normal
General Mental: alert
General Hydration: appears well hydrated
Cardiovascular Exam
Cardiovascular Exam: regular rate/rhythm, no murmur and normal peripheral pulses
Pulmonary Exam
Pulmonary Exam: lungs clear and no respiratory distress
Neurological Exam
Neurological Exam: alert and oriented x3
Musculoskeletal Exam
Musculoskeletal Exam: full ROM
Skin Exam
Skin Exam: normal color and warm/dry
Psychiatric Exam
Psychiatric Exam: normal mood/affect
Course
Orders/Labs/Results
Orders:
Orders
04/02/25 18:19
EKG [Electrocardiogram (*1)] Stat
Reason for Study: Chest Pain
EKG- Treatment ONCE
04/02/25 18:39
CT Head W/o Iv Contrast Urgent
Comment:
Reason For Exam: visual disturbance
Cardiac Monitoring- Treatment ONCE
IV Insert/Care/Rem.- Treatment PRN
04/02/25 18:40
CR Chest - 2 Views Urgent
Comment:
Reason For Exam: cp
04/02/25 18:48
Visual Acuity- Treatment ONCE
04/02/25 19:20
Complete Blood Count/With Diff Urgent
Comprehensive Metabolic Panel Urgent
Troponin I Urgent
04/02/25 20:25
EKG- Treatment ONCE
04/02/25 22:20
Electrocardiogram (*1) Stat
Reason for Study: Other
Other Reason for Exam: chest pain
Troponin I Urgent
Abnormal Lab Results
04/02/25
19:20
RBC 3.74 L 10^6/uL
(4.70-6.10)
Hgb 11.4 L g/dL
(13.0-18.0)
Hct 32.2 L %
(39.0-52.0)
Absolute Monos (auto) 0.7 H 10^3/uL
(0.1-0.6)
BUN 24 H mg/dl
(9-20)
Glucose 140 H mg/dl
(70-99)
04/02/25 19:20
04/02/25 19:20
Vital Signs
Initial and Last Documented VS:
Initial Vital Signs
Temp Pulse Resp BP Pulse Ox
98.2 F 86 20 151/87 99
04/02/25 18:19 04/02/25 18:19 04/02/25 18:19 04/02/25 18:19 04/02/25 18:19
Last Documented Vital Signs
Temp Pulse Resp BP Pulse Ox
98.2 F 83 14 137/75 96
04/02/25 18:19 04/02/25 19:45 04/02/25 19:45 04/02/25 18:49 04/02/25 19:45
Food Concession Manager consulted with Physician
Food Concession Manager consulted with physician?: Yes
Name of Physician Consulted: Mateusz
MDM/Problems Addressed
Differential Diagnosis Includes:
Not limited to ACS, TIA
MDM/Problems Addressed:
Patient as document has significant cardiac history with known occlusion recent STEMI several weeks ago presents back to the ER with intermittent chest pain dizziness. He has also intermittent blurred vision. He presented asymptomatic in no acute
distress and was monitored here and remained chest pain-free and asymptomatic negative cardiac troponins were with high risk patient recommend admission for observation, trend troponins. Patient denies any fever chills he is afebrile normal renal
function.
Case reviewed with ED physician who evaluated patient recommend admission. Not limited to ACS
Chronic conditions affecting care:
Known CAD recent STEMI
*Radiology
Radiology exam reviewed: radiology read reviewed
*Pulse Oximetry
SaO2: 99
Oxygen Mode of Delivery: Room air
Patient hypoxic: no
*EKG
Heart Rate: 77
Rate: normal
Rhythm: sinus
Ischemia: T-wave inversion (david III)
*Critical Care Note
Total Time (30-74mins, 75-104mins- exclusive of procedures): Not Applicable
Data Reviewed
Review of Other/Old Records Reveals: Labs, Radiology Studies and Discharge Summary
ED Attending Note
-
Portions of this chart may have been created with voice recognition software.� Occasional wrong word or��sound alike� substitutions may have occurred due to the inherent limitations of voice recognition software.
Discharge Plan
Departure
Patient Disposition: Admit
Date of Disposition: 04/02/25
Time of Disposition: 21:01
Admit to: Telemetry
Admit to doctor: hospitalist
Presentation/result/management discussed w/ accepting MD/DO: Hospitalist
Patient with high blood pressure during this ER visit?: Yes
Condition: Fair
Covid-19: Not Applicable
Discharge Problem:
Chest pain, visual disturbance resolved
Prescriptions:
No Action
clopidogrel 75 MG tablet
75 mg PO DAILY
aspirin 81 MG tablet,delayed release (DR/EC)
81 mg PO DAILY
flaxseed oil 1,000 MG capsule
3,000 mg PO DAILY
fluticasone propionate 1 SPRAY spray,suspension
1 spray intranasal DAILY PRN (Reason: breathing)
Patient Comments:
PRN; taken several months ago
ezetimibe 10 MG tablet
10 mg PO HS
tamsulosin 0.4 MG capsule
0.8 mg PO DAILY
metformin 500 MG tablet
1,000 mg PO BID@0800,1700
amitriptyline 10 MG tablet
10 mg PO HS
nitroglycerin 0.4 MG tablet, sublingual
0.4 mg sublingual [id number] PRN (Reason: chest pain)
amlodipine 10 MG tablet
10 mg PO DAILY Qty: 30 3RF
rosuvastatin 20 MG tablet
20 mg PO QPM 0RF
cholecalciferol (vitamin D3) [Vitamin D3] 25 mcg (1,000 unit) Tablet
50 mcg PO DAILY
multivitamin Tablet
1 tab PO DAILY
carvedilol 25 mg tablet
25 mg PO BID
famotidine 20 mg tablet
20 mg PO BIDPRN PRN (Reason: acid reflux/heartburn)
levothyroxine 125 mcg tablet
125 mcg PO DAILY AT 0700
finasteride 5 mg tablet
5 mg PO DAILY
diazepam 5 mg tablet
5 mg PO HSPRN PRN (Reason: sleep)
Patient Comments:
07/30/2023: last filled 06/09/23, 14 tabs for 14 days from [facility]#[id number]
valsartan 160 mg tablet
160 mg PO BID
coenzyme Q10 [Co Q-10] 100 mg Capsule
100 mg PO DAILY
Ozempic 0.25 mg or 0.5 mg (2 mg/3 mL) pen injector
0.5 mg SC CAMACHO
isosorbide mononitrate 30 mg Tablet Extended Release 24 Hr
30 mg PO DAILY Qty: 30 0RF
Referrals:
Pauline Zeng MD [Family Provider, Internal Medicine]
Interventions
Interventions:
*Risk Screen - Suicide Last Done: 04/02/25 19:01
*General Assessment Last Done: 04/02/25 18:19
*Neglect/Abuse Screening Last Done: 04/02/25 19:01
*ED- Fall Risk Assessment Last Done: 04/02/25 18:50
*ED COVID-19 Vaccine History Last Done: 04/02/25 18:50
ED- Cardiac Assessment Last Done: 04/02/25 19:26
ED- Pulmonary Assessment Last Done: 04/02/25 19:26
Discharge Date and Time
Print Language: FINNISH
[2025-04-02 18:49] VITALS: BP 137/75
[2025-04-02 18:50] VITALS: BMI 29.3
[2025-04-02 19:30] LABS: Hematocrit 32.2 % (39.0-52.0); Hemoglobin 11.4 g/dL (13.0-18.0); Mean Corp Hgb Conc. 35.4 g/dL (33.0-37.0); Mean Corpuscular Volume 86.1 fL (80.0-94.0); Nucleated Red Blood Cells % 0 % (-); Platelet Count 241 10^3/uL (130-400); Red Cell Dist. Width 12.0 % (11.5-14.5)
[2025-04-02 19:51] LABS: Troponin I < 0.012 ng/ml
[2025-04-02 20:00] VITALS: BP 130/74
[2025-04-02 20:07] LABS: ALT (SGPT) 23 U/L (0-50); AST (SGOT) 21 U/L (17-59); Albumin 4.4 g/dl (3.5-5.0); Alkaline Phosphatase 42 U/L (38-126); Blood Urea Nitrogen 24 mg/dl (9-20); Calcium 9.7 mg/dl (8.4-10.2); Carbon Dioxide 25 mmol/L (22-30); Chloride 106 mmol/L (98-107); Estimated Creatinine Clearance 52 ml/min; Glucose 140 mg/dl (70-99); Potassium 4.2 mmol/L (3.5-5.1); Sodium 140 mmol/L (135-145); Total Protein 7.1 g/dl (6.3-8.2); eGFR 58.37
[2025-04-02 21:00] VITALS: BP 141/82
--- NOTE | 2025-04-02 21:24 | HPS.HSE ---
Family Physician
-
Family Physician: Pauline Zeng
Chief Complaint
-
Chest Pain, Blurry Vision
History of Present Illness
Patient is a 74y M with PMH significant for ASCVD, hypertension and DM-II who presents to ED complaining of chest pain, fatigue and blurry vision. Patient was hospitalized here 03/17 - 03/19 secondary to NSTEMI. He underwent cardiac cath on 03/17
which showed 100% in-stent restenosis of the RPL2 as well as some in-stent restenosis of prior LAD stent. Intervention attempts were unsuccessful and decision was made to pursue medial therapies. Patient states that since his discharge he has had
intermittent fatigue / exercise intolerance. He notes dyspnea with activity / exertion. Today, he developed substernal chest pain around 5 PM with associated SOB. This prompted him to present to the ED for further evaluation.
Patient also notes that he has appreciated sense of lightheadedness / 'feeling faint' intermittently over the past few days.
He also complains of blurry vision in the R eye (vision in the L eye is clear). This started last PM and has persisted since that time. He describes 'spots' of blurred vision in the R eye.
He denies any headache, eye pain, discharge, etc.
At the time of my examination he is chest pain free.
Medical History
Past Medical History
Past Medical History: Reports Other
Additional Past Medical History:
ASCVD
SVT
Hypertension
DM-II
Migraines
Peyronie's Disease
Pyloric Stenosis
Past Surgical History: Reports Other
Additional Past Surgical History:
PTCA with Stent (x 5)
R Eye Surgery (2017)
Pyloric Stenosis Repair (2 weeks old)
SVT Ablation
Skin Cancer Excision
Left Knee Arthroscopy
Social History
Tobacco: Non-smoker
Alcohol: Occasional
Drug: None
Family History
Family History: Not pertinent
Allergies / Home Medications
Allergies reflects when Allergies were last updated in [facility].
Home Medications with original date entered in [facility]
Allergy/Medication List:
Allergies
Allergy/AdvReac Type Severity Reaction Status Date / Time
Sulfa (Sulfonamide Allergy Mild Rash Verified 04/02/25 18:19
Antibiotics)
Home Medications
aspirin 81 mg tablet,delayed release 81 mg PO DAILY Blood Clot Prevention/Tx 11/18/12
clopidogrel 75 mg tablet 75 mg PO DAILY Blood Clot Prevention/Tx 11/18/12
ezetimibe 10 mg tablet 10 mg PO HS High Cholesterol 11/18/12
flaxseed oil 1,000 mg capsule 3,000 mg PO DAILY Supplement 11/18/12
fluticasone propionate 50 mcg/actuation nasal spray,suspension 1 spray intranasal DAILY PRN breathing 11/18/12
tamsulosin 0.4 mg capsule 0.8 mg PO DAILY Urinary Issue 11/23/13
amitriptyline 10 mg tablet 10 mg PO HS Mental Health 04/30/17
metformin 500 mg tablet 1,000 mg PO BID@0800,1700 Diabetes 04/30/17
Held on 03/19/25. Instructions: Resume on 03/20/25. Resume ThursdayMarch 20.
nitroglycerin 0.4 mg sublingual tablet 0.4 mg sublingual [id number] PRN chest pain 04/30/17
amlodipine 10 mg tablet 10 mg PO DAILY #30 tabs 05/01/17
cholecalciferol (vitamin D3) 25 mcg (1,000 unit) tablet (Vitamin D3) 50 mcg PO DAILY Supplement 07/16/21
carvedilol 25 mg tablet 25 mg PO BID Blood Pressure 07/30/23
coenzyme Q10 100 mg capsule (Co Q-10) 100 mg PO DAILY Supplement 07/30/23
diazepam 5 mg tablet 5 mg PO HSPRN PRN sleep 07/30/23
famotidine 20 mg tablet 20 mg PO BIDPRN PRN acid reflux/heartburn 07/30/23
finasteride 5 mg tablet 5 mg PO DAILY prostate issue 07/30/23
levothyroxine 125 mcg tablet 125 mcg PO DAILY AT 0700 Thyroid 07/30/23
multivitamin 1 tab PO DAILY Supplement 07/30/23
semaglutide 0.25 mg or 0.5 mg (2 mg/3 mL) subcutaneous pen injector (Ozempic) 0.5 mg SC CAMACHO Diabetes 07/30/23
valsartan 160 mg tablet 160 mg PO BID Blood Pressure 07/30/23
isosorbide mononitrate 30 mg tablet,extended release 24 hr 30 mg PO DAILY #30 tabs 03/19/25
rosuvastatin 40 mg tablet 40 mg PO DAILY 04/02/25
Review of Systems
-
History Source: Patient
A 12 point ROS was completed and negative except as noted: Yes
Constitutional: Reports Fatigue; Denies Fever or Chills
EENT: Reports Other (Blurry vision); Denies Sore Throat
Respiratory: Reports Trouble Breathing; Denies Cough
Cardiac: Reports Chest Pain; Denies Diaphoresis, Palpitations or Syncope
Abdomen/GI: Denies Abdominal Pain, Nausea, Vomiting or Diarrhea
: Denies Dysuria, Frequency or Flank Pain
Musculoskeletal: Denies Joint Pain or Edema
Neurological: Denies Dizzy, Headache, Weakness or Numbness
Psych: Denies Depression or Anxiety
Physical Exam
Vital Signs
Vital Signs
Temp Pulse Resp BP Pulse Ox
98.2 F 85 13 141/82 98
04/02/25 18:19 04/02/25 21:00 04/02/25 21:00 04/02/25 21:00 04/02/25 21:00
Physical Exam
General: Other (74y M in no acute distress.)
HEENT: Moist mucous membranes and PERRLA
Respiratory: Clear; No Wheezes, Rales or Rhonchi
Cardiac: S1/S2, Regular Rhythm and Murmur (II/ MISAEL best heard at the apex.)
GI: Soft, Non Tender, Non Distended and Normal Bowel Sounds
Musculoskeletal: No Clubbing, No Cyanosis and No Edema
Neuro: AO x 3
Laboratory Results
-
04/02/25 19:20
04/02/25 19:20
Laboratory Results
Total Bilirubin 0.8 mg/dl (0.2-1.3) 04/02/25 19:20
AST 21 U/L (17-59) 04/02/25 19:20
ALT 23 U/L (0-50) 04/02/25 19:20
Alkaline Phosphatase 42 U/L (38-126) 04/02/25 19:20
Troponin I < 0.012 ng/ml 04/02/25 19:20
Impression/Plan
-
A/P: Patient is a 74y M with PMH significant for ASCVD, HTN and DM-II who presents to ED complaining of lightheadedness, fatigue, chest paina nd blurry vision.
ASCVD
Chest Pain
- Observe overnight for further evaluation and treatment.
- Recent admission for NSTEMI with peak troponin of 12.
- Initial trop today is undetectable. EKG unchanged from prior. Pain free at present.
- Continue ASA, statin, etc.
- Follow for any recurrent symptoms.
- Follow serial troponin.
- Cardiology evaluation for additional recommendations.
Lightheaded / Fatigue
- Unclear etiology - ? related to recent NSTEMI, etc.
- Echo done during that admission was unremarkable.
- Imdur added last admission - no other significant med changes.
- Check orthostatic signs.
Vision Change
- Blurry vision in R eye specifically. No R visual field deficits - clear vision from entirety of L eye.
- CT in the ED unremarkable. Check MRI in AM.
- Follow for any new / worsening symptoms.
- No complaints of eye pain, discharge, etc.
Benign Hypertension
- Stable. Continue current med regimen with holding parameters.
- Orthostatics as noted above.
DM-II
- Stable. Hold metformin acutely.
- Follow glucose and cover with SSI as needed.
- A1C during recent admission was 6.7%.
CKD III
- Stable. Renal function is at / near known baseline.
BPH
- Stable. Continue current med regimen.
- Bladder scan protocol.
Migraine Headaches
- No headache at present. ? vision changes atypical / ocular migraine presentation?
- Follow for changes.
DVT Prophylaxis: Lovenox
Code Status: Full
[2025-04-02 22:00] VITALS: BP 114/73; BMI 29.1
--- NOTE | 2025-04-02 22:00 | PTCARENOTE ---
Pt transported from ED to 3W via stretcher. Pt independent from stretcher to bed, AAOX3. Vitals stable, pt placed on TELE monitoring (#24). Pt oriented to room, call lawrence within reach.
[2025-04-02 23:00] VITALS: BP 114/73
[2025-04-02] MEDS: ZETIA 10 MG PO (23:12)
[2025-04-02] MEDS: ELAVIL 10 MG PO (23:12)
[2025-04-03] VITALS (7 sets, daily range): BP systolic 119–141; BP diastolic 68–81; PULSE 83–92; BMI 29.0
[2025-04-03 00:03] LABS: Troponin I < 0.012 ng/ml
[2025-04-03 00:22] LABS: C-Reactive Protein < 5.00 mg/L (0.0-10.00)
[2025-04-03 05:41] LABS: Hematocrit 29.7 % (39.0-52.0); Hemoglobin 10.5 g/dL (13.0-18.0); Mean Corp Hgb Conc. 35.4 g/dL (33.0-37.0); Mean Corpuscular Volume 85.8 fL (80.0-94.0); Platelet Count 233 10^3/uL (130-400); Red Cell Dist. Width 12.1 % (11.5-14.5)
[2025-04-03 06:17] LABS: Troponin I < 0.012 ng/ml
[2025-04-03] MEDS: SYNTHROID 125 MCG PO (06:22)
[2025-04-03 06:30] LABS: Blood Urea Nitrogen 23 mg/dl (9-20); Calcium 9.4 mg/dl (8.4-10.2); Carbon Dioxide 24 mmol/L (22-30); Chloride 109 mmol/L (98-107); Estimated Creatinine Clearance 56 ml/min; Glucose 111 mg/dl (70-99); Potassium 4.0 mmol/L (3.5-5.1); Sodium 140 mmol/L (135-145); eGFR > 60.00
--- NOTE | 2025-04-03 08:30 | CON.CAR ---
Addendum entered and electronically signed by Nguyễn Kay MD 04/03/25 14:45:
Patient seen and examined in collaboration with PGY-2 Lead Portfolio Manager; agree with below.
- 74-year-old male with known coronary artery disease status-post recurrent PCI and known intrinsic residual coronary artery disease (being medically managed) presenting with anginal symptoms.
- The patient is a fully functioning, independent 74-year-old male who typically goes to the gym and does things actively with his ; however, has now developed limiting symptoms.
- Examination: Heart regular rate and rhythm, normal S1-S2, soft 2/6 systolic murmur at the apex; clear lungs; no edema.
- Assessment/plan:
- Fully functioning independent 74-year-old male with symptom-limiting angina.
- Will discuss revascularization options with Interventional Cardiology; patient may likely need to undergo CABG, as percutaneous coronary intervention was previously attempted but unsuccessful.
- Continue aspirin, amlodipine, carvedilol, ezetimibe, and Imdur, and high-dose Crestor; holding clopidogrel as patient may need to undergo CABG.
- youth nutritional monitor.
Original Note:
Documented by User: Latasha Oglesby MD, Resident 04/03/25 11:10
Consultation
Consultation Request
Date/Time Consultation Requested: 04/02/2025 23:12
Date/Time Consultation Performed: 04/03/2025 08:45
Requesting Provider: Dr Xu Ribeiro
Performing Provider: Dr. Mirza Kay
Reason for Consultation: Chest Pain
Medical History
-
Chief Complaint: Chest pain, fatigue, blurry vision
History of Present Illness:
74-year-old male with past medical history of ASCVD (LAD 2004, RCA 2005, RCA 2013) on DAPT, hypertension, type 2 diabetes, SVT (s/p ablation HUP 2016), hypothyroidism, Peyronie's disease, migraines, type 2 diabetes, right eye optic neuritis (tx 2022
steroids), pyloric stenosis (s/p surgery 3 weeks old), presented to the ED complaining of chest pain, fatigue and blurry vision. Patient was hospitalized here from 03/17-03/19/2025 secondary to NSTEMI. He underwent cardiac cath on 03/17 revealing
100% stenosis of R PL 2 within previous stented segments. PCI was unsuccessful and medical management with 48 hours of heparin, DAPT and was discharged on Imdur. Over the past 3 days, patient had episodes of exertional dyspnea with associated
chest pain, blurry vision, feeling like he would pass out. On Thursday was first episode. After a long day of shopping, patient came home and moved a futon from the table to a seat which triggered some 2/10 chest pain, SOB and lightheadedness. He
sat down to rest. When he stood up he again he felt dizzy, feeling like he would pass out, blurry vision in the right eye and fatigued. On Thursday and Thursday similar events. He describes the chest pain as a pressure or a weight onto his chest
however did not feel similar to when he had his NSTEMI. He did endorse some nausea yesterday with the blurry vision. He denies any radiating pain, heart palpitations, sweating, vomiting, leg swelling, fevers, chills, recent URI. He did not take
any nitroglycerin when chest pain occurred.
In the ED, BP 141/82, hg 11.4, ESR 38, Cr 1.2, GFR >60. Troponins were trended overnight all less than 0.012. EKG revealed sinus rhythm with first-degree AV block. Prior echo on 03/17/2025 revealed LVEF 55 to 60%. He was admitted to telemetry for
overnight observation and cardiology was consulted. He did not require any pain meds overnight for chest pain. Today, he denies any chest pain, blurry vision, fatigue. Overall he feels well and denies any of the symptoms he felt yesterday.
Past Medical History
Past Medical History: Arrhythmias (SVT s/p ablation 2016 [facility]), CAD, HTN, Hypercholesterolemia, Hypothyroidism, NIDDM, CO and Other ( Peyronie's disease, migraines, right eye optic neuritis (tx 2022 w/IV solu-medrol and prednisone taper))
Past Surgical History: Other (PTCA with stent x 5, right eye surgery (2017), pyloric stenosis repair (3 weeks old), SVT ablation, skin cancer excision, left knee arthroscopy)
Social History
Tobacco: Non-Smoker
Alcohol: Occasional
Drug: None
Personal:
Living: With Family
Family History
Family History: CAD, Diabetes, Hypertension and Other (mom - Multiple system atrophy)
Allergies / Home Medications
Allergy/AdvReac Type Severity Reaction Status Date / Time
Sulfa (Sulfonamide Allergy Mild Rash Verified 04/02/25 18:19
Antibiotics)
�Medication �Instructions �Recorded �Confirmed �Type
aspirin 81 mg tablet,delayed 81 mg PO DAILY Blood Clot 11/18/12 04/02/25 History
release Prevention/Tx
clopidogrel 75 mg tablet 75 mg PO DAILY Blood Clot 11/18/12 04/02/25 History
Prevention/Tx
ezetimibe 10 mg tablet 10 mg PO HS High Cholesterol 11/18/12 04/02/25 History
flaxseed oil 1,000 mg capsule 3,000 mg PO DAILY Supplement 11/18/12 04/02/25 History
fluticasone propionate 50 1 spray intranasal DAILY PRN 11/18/12 04/02/25 History
mcg/actuation nasal breathing
spray,suspension
tamsulosin 0.4 mg capsule 0.8 mg PO DAILY Urinary Issue 11/23/13 04/02/25 History
amitriptyline 10 mg tablet 10 mg PO HS Mental Health 04/30/17 04/02/25 History
metformin 500 mg tablet 1,000 mg PO BID@0800,1700 Diabetes 04/30/17 04/02/25 History
Held on 03/19/25.
Instructions: Resume on
03/20/25. Resume Thursday
morning March 20.
nitroglycerin 0.4 mg sublingual 0.4 mg sublingual [id number] PRN 04/30/17 04/02/25 History
tablet chest pain
amlodipine 10 mg tablet 10 mg PO DAILY #30 tabs 05/01/17 04/02/25 Rx
cholecalciferol (vitamin D3) 25 50 mcg PO DAILY Supplement 07/16/21 04/02/25 History
mcg (1,000 unit) tablet (Vitamin
D3)
carvedilol 25 mg tablet 25 mg PO BID Blood Pressure 07/30/23 04/02/25 History
coenzyme Q10 100 mg capsule (Co 100 mg PO DAILY Supplement 07/30/23 04/02/25 History
Q-10)
diazepam 5 mg tablet 5 mg PO HSPRN PRN sleep 07/30/23 04/02/25 History
famotidine 20 mg tablet 20 mg PO BIDPRN PRN acid 07/30/23 04/02/25 History
reflux/heartburn
finasteride 5 mg tablet 5 mg PO DAILY prostate issue 07/30/23 04/02/25 History
levothyroxine 125 mcg tablet 125 mcg PO DAILY AT 0700 Thyroid 07/30/23 04/02/25 History
multivitamin 1 tab PO DAILY Supplement 07/30/23 04/02/25 History
semaglutide 0.25 mg or 0.5 mg (2 0.5 mg SC CAMACHO Diabetes 07/30/23 04/02/25 History
mg/3 mL) subcutaneous pen injector
(Ozempic)
valsartan 160 mg tablet 160 mg PO BID Blood Pressure 07/30/23 04/02/25 History
isosorbide mononitrate 30 mg 30 mg PO DAILY #30 tabs 03/19/25 04/02/25 Rx
tablet,extended release 24 hr
rosuvastatin 40 mg tablet 40 mg PO DAILY 04/02/25 04/02/25 History
Review of Systems
-
History Source: Patient
EENT: No Symptoms
Respiratory: No Symptoms
Cardiac: No Symptoms
Abdomen/GI: No Symptoms
Neurological: No Symptoms
Physical Exam
Vital Signs
Temp Pulse Resp BP Pulse Ox
98.2 F 81 16 122/72 97
04/03/25 07:20 04/03/25 07:20 04/03/25 07:20 04/03/25 07:20 04/03/25 07:20
Lab Results
04/03/25 05:21
04/03/25 05:22
Troponin I < 0.012 ng/ml 04/03/25 05:21
Physical Exam
General: Well Developed, Well Nourished, No Apparent Distress and Comfortable
Respiratory: Clear
Cardiac: S1/S2, Regular Rhythm and Murmur (Grade 2 Systolic ejection murmur heard at aortic point and cardiac apex)
GI: Soft, Non Tender, Non Distended and Normal Bowel Sounds
Musculoskeletal: No Edema
Skin: Warm and Dry
Neuro: AO x 3, Tremors (n) and Nonfocal/Grossly Intact
Psych: Calm
Impression / Plan
-
74-year-old male with past medical history of ASCVD (LAD 2003, RCA 2005, RCA 2013) on DAPT, hypertension, type 2 diabetes, SVT (s/p ablation HUP 2016), hypothyroidism, Peyronie's disease, migraines, type 2 diabetes, right eye optic neuritis (tx 2022
steroids), pyloric stenosis (s/p surgery 3 weeks old), presented to the ED complaining of chest pain, fatigue and blurry vision. Patient was hospitalized here from 03/17-03/19/2025 secondary to NSTEMI. He underwent cardiac cath on 03/17 revealing
100% stenosis of R PL 2 within previous stented segments. PCI was unsuccessful and medical management with 48 hours of heparin, DAPT and was discharged on Imdur. He described the episodes of chest pain to be 1-2 out of 10 in pain, short-lived, no
radiating pain, associated with right eye blurry vision, nausea, shortness of breath. Triggered with movement, better with rest.
Primary Scale Manager: Dr. Alvarez
ASCVD (LAD 2003, RCA 2005, RCA 2013)
NSTEMI s/p unsuccessful PCI 03/17/2025
Chest pain
-EKG and troponin not concerning for NSTEMI
-Cardiac catheterization 03/17/2025 revealed 100% stenosis of RPL 2 with the previously stented segment. Unsuccessful attempt.
-TTE on 03/17/2025 revealed LVEF 55 to 60%, no regional wall motion abnormalities, aortic sclerosis, mild MR
-Symptoms consistent with angina
-Patient previously active exercising 5 days a week, now unable to. Conversation between interventional cardiology and CT surgery team ongoing to evaluate surgical intervention. Patient and are open to the idea.
-If non-surgical approach, consider adding ranolazine
-Clopidogrel and metformin on hold pending decision for surgical intervention
-LDL 30 at goal on crestor 40
-Cont tele
HTN
-Currently patient's home meds are amlodipine 10 mg daily, carvedilol 25 twice daily, valsartan 160 twice daily, isosorbide mononitrate 30 mg daily
-BP at goal, but feeling lightheaded when he stands up could be consistent with orthostatic hypotension
-Consider decrease amlodipine pending orthostatic vitals results
History of SVT status post ablation 2017 at [facility] by Dr. Suresh
Diabetes 2
-Hga1c 6.7 03/17/25 at goal
-Metformin on hold pending surgical intervention
-SSI
-Consider adding farxiga at discharge
HLD
-Cont crestor
Blurry vision
-Head CT no signs of acute infarct
-No focal neurological deficits, visual guerra intact, today no blurry vision
-MRI pending
-Of note, hx optic neuritis 07/2023 s/p IV solu-medrol and prednisone taper. MRI 2022 no signs of MS.
DVT lovenox
Patient and Tosin are both open to the idea of surgery. Previously discussed surgical options with Dr. Man post PCI attempt. Understand that this pain, if ongoing, will significantly affect patient activity level.

Documented by User: Nguyễn Kay MD 04/03/25 14:40
Data Reviewed
-
EKG: Report Reviewed by me (Sinus rhythm at 85 bpm with first-degree AV block and nonspecific T wave abnormality.)
Radiology: Report Reviewed by me (Chest x-ray 04/02/2025: No acute cardiopulmonary process.)
Medical Tests (Nuc Med, Echo etc): Discussed with Patient and Discussed with Family ( at bedside)
Labs: Labs Reviewed by me and Discussed with Physician (PGY-2 Lead Portfolio Manager)
[2025-04-03 08:40] LABS: Glucose - Point of Care 122 mg/dl (70-99)
[2025-04-03] MEDS: NOVOLOG FLEXPEN-LOW RESISTANCE SC ×2 (08:59→16:59)
[2025-04-03] MEDS: IMDUR (EXTENDED RELEASE) 30 MG PO (09:08)
[2025-04-03] MEDS: COREG 25 MG PO ×2 (09:08→21:07)
[2025-04-03] MEDS: NORVASC 10 MG PO (09:08)
[2025-04-03] MEDS: DIOVAN 160 MG PO ×2 (09:08→21:07)
[2025-04-03] MEDS: CRESTOR 40 MG PO (09:08)
[2025-04-03] MEDS: FLOMAX 0.8 MG PO (09:08)
[2025-04-03] MEDS: ASPIR LOW (ENTERIC COATED) 81 MG PO (09:08)
[2025-04-03] MEDS: PROSCAR 5 MG PO (09:09)
[2025-04-03 11:41] LABS: Troponin I < 0.012 ng/ml
--- NOTE | 2025-04-03 12:07 | W.PN.HOSP.TC ---
Today's Communication/Plan
-
Restart diet
DC MRI
Await cardiology input
Orthostatic vital signs pending
Assessment / Plan
Assessment / Plan
A/P: Patient is a 74y M with PMH significant for ASCVD, HTN and DM-II who presents to ED complaining of lightheadedness, fatigue, chest paina nd blurry vision.
CAD status post stents
Suspected angina
- Recent admission for NSTEMI with peak troponin of 12.
- Initial trop today is undetectable. EKG unchanged from prior. Pain free at present.
- Continue ASA, statin. Restart Plavix HYACINTH pending further input from cards as below.
- Follow for any recurrent symptoms.
- Troponin remains negative. Plavix is being held for possible plan for intervention
- TTE 03/17/2025: LVEF 55-60%, no regional wall motion abnormalities, aortic sclerosis
- Cardiology evaluation for additional recommendations. High risk PCI versus bypass
Lightheaded / Fatigue
- Unclear etiology - ? related to recent NSTEMI versus hypotension
- Echo done during that admission was unremarkable.
- Imdur added last admission - no other significant med changes.
- orthostatic vitals per day
History of right eye optic neuritis
- Remains with intermittent blurred vision
- Currently asymptomatic
- Monitor. DC MRI for now.
Benign Hypertension
- Stable. Continue current med regimen with holding parameters.
- Orthostatics as noted above.
DM-II
- Stable. Hold metformin acutely.
- Follow glucose and cover with SSI as needed.
- A1C during recent admission was 6.7%.
CKD III
- Stable. Renal function is at / near known baseline.
BPH
- Stable. Continue current med regimen.
- Bladder scan protocol.
Migraine Headaches
- No headache at present. ? vision changes atypical / ocular migraine presentation?
- Follow for changes.
DVT Prophylaxis: Lovenox
Code Status: Full
Anticipated Discharge: > 48 hours
Subjective/Interval History
-
Date of Service: April 03, 2025
States he ambulated 20 minutes in the hallway
Denies any vision problems
States he thinks due to his low blood pressure he might have a symptoms for the blurry vision
Currently at rest patient is chest pain-free
Objective Data
-
Labs:
Laboratory Results
04/03/25 04/03/25
05:21 05:22
WBC 9.8
Hgb 10.5 L
Hct 29.7 L
Plt Count 233
Sodium 140
Potassium 4.0
Chloride 109 H
Carbon Dioxide 24
BUN 23 H
Creatinine 1.2
Glucose 111 H
Calcium 9.4
Vital Signs:
Vital Signs
Temp Pulse Resp BP Pulse Ox
97.9 F 78 17 124/73 98
04/03/25 10:58 04/03/25 10:58 04/03/25 10:58 04/03/25 10:58 04/03/25 10:58
Physical Exam
-
General: Well Developed and No Apparent Distress
HEENT: Normocephalic, Atraumatic and Moist Mucous Membranes
Respiratory: Clear to Auscultation
Cardiac: Regular Rhythm and S1/S2; Negative Murmur, Rub or Gallop
GI: Soft, Nontender, Nondistended and Normal Bowel Sounds; Negative Organomegaly
Rectal: Deferred by Provider
Musculoskeletal: No Clubbing, No Cyanosis and No Edema
Skin: Warm; Negative Rash
Neuro: Awake, Alert, Oriented, AO x 3, No Motor Deficits and Nonfocal/Grossly Intact; Negative Tremors, Sedated, Slurred Speech or Facial Droop
Psych: Calm
Data Reviewed
-
Total Time Spent with Patient (in minutes): 55
[2025-04-03 12:39] LABS: Glucose - Point of Care 201 mg/dl (70-99)
[2025-04-03] MEDS: NOVOLOG FLEXPEN-LOW RESISTANCE 2 UNITS SC (12:40)
--- NOTE | 2025-04-03 12:56 | CM ---
Patient seen at bedside
IA completed
OBS Status - [facility] form explained & signed. In chart
Dx: chest pain
pmh: ASCVD, HTN and DM-II
Lives with in condo, no steps
PLOF: Independent
Denies DME
Denies VN/has had outpatient cardiac rehab in past
Denies insecurities
PCP: Pauline Zeng
Pharmacy: [facility]
PLAN: home, no needs anticipated
--- NOTE | 2025-04-03 14:53 | CONSULT.CT ---
Consultation
-
Date/Time Consultation Performed: 04/03/25
Requesting Provider: Nguyễn Kay MD; Erick Man MD
Performing Provider: Steffen Carrillo PA-C
Reason for Consultation: MVCAD, failed PCI to RPLB 2 weeks ago readmitted with angina, Eval for CABG
Patient History
Physicians
Outpatient Figure Skater: Dr. Alvarez
Inpatient Figure Skater: Dr. Kay
History of Present Illness
Patient is a 75-year-old male with past medical history significant for multivessel CAD with prior PCI to the LAD in 2003, right coronary artery in 2005 and 2013, on dual antiplatelet therapy with Plavix last taken yesterday morning, type 2 diabetes
vzu-kozbowf-jqnqmgmqu, SVT status post ablation in 2016, hypothyroidism, pyrone's disease, migraines, hypertension. Patient was admitted 2 weeks ago with NSTEMI. He was taken to the [facility] where in-stent restenosis of his prior RPL 2 stent was
noted as well as in-stent restenosis of his LAD at the takeoff of a diagonal branch. Reintervention on the RPL 2 was attempted and unfortunately failed. Patient remained chest pain-free and was ultimately medically managed following this. Patient
is now readmitted with recurrent dizziness, weakness, chest pain. This is progressed over the past several days culminating in near syncopal events. He does complain of some intermittent chest pain with activity as well. He presented the hospital
for further evaluation and was subsequently admitted. Given his ongoing symptoms and recent failed attempt at PCI, we are asked to consider CABG as the definitive revascularization strategy.
Currently he is resting comfortably and without complaints. He is accompanied by his . He denies any history of CVA/TIA, bleeding or clotting disorders that he knows of, history of esophageal stricture, COPD/asthma, melena/hematochezia,
varicose veins or vein stripping, prior chest procedures or chest radiation. He is a former smoker quitting in the 90s. He smoked 1 pack/day for 20 years. He drinks alcohol occasionally and denies illicit drug use. He is lives at home
with his and is independent in his ADLs. He does not require support devices for ambulation.
Past Medical History
Past Medical History: Other
CAD with multiple prior PCI's
Hypertension
Rbf-fjelxhv-qrvvvrzky diabetes mellitus
Hypothyroidism
SVT status post ablation
Migraines
Right eye optic neuritis
Pyrone's disease
Past Surgical History
Past Surgical History: Other
Pyloric stenosis repair at 3 weeks old
SVT ablation
Left knee arthroscopy
Nevus removal above his right eye
Social History
Alcohol: Occasional
Drug: None
Tobacco: Former Smoker (20 pack history)
Personal:
Living: With Spouse
Allergies
Allergy/AdvReac Type Severity Reaction Status Date / Time
Sulfa (Sulfonamide Allergy Mild Rash Verified 04/02/25 18:19
Antibiotics)
Home Medications
�Medication �Instructions �Recorded �Confirmed �Type
aspirin 81 mg tablet,delayed 81 mg PO DAILY Blood Clot 11/18/12 04/02/25 History
release Prevention/Tx
clopidogrel 75 mg tablet 75 mg PO DAILY Blood Clot 11/18/12 04/02/25 History
Prevention/Tx
ezetimibe 10 mg tablet 10 mg PO HS High Cholesterol 11/18/12 04/02/25 History
flaxseed oil 1,000 mg capsule 3,000 mg PO DAILY Supplement 11/18/12 04/02/25 History
fluticasone propionate 50 1 spray intranasal DAILY PRN 11/18/12 04/02/25 History
mcg/actuation nasal breathing
spray,suspension
tamsulosin 0.4 mg capsule 0.8 mg PO DAILY Urinary Issue 11/23/13 04/02/25 History
amitriptyline 10 mg tablet 10 mg PO HS Mental Health 04/30/17 04/02/25 History
metformin 500 mg tablet 1,000 mg PO BID@0800,1700 Diabetes 04/30/17 04/02/25 History
Held on 03/19/25.
Instructions: Resume on
03/20/25. Resume Thursday
morning March 20.
nitroglycerin 0.4 mg sublingual 0.4 mg sublingual [id number] PRN 04/30/17 04/02/25 History
tablet chest pain
amlodipine 10 mg tablet 10 mg PO DAILY #30 tabs 05/01/17 04/02/25 Rx
cholecalciferol (vitamin D3) 25 50 mcg PO DAILY Supplement 07/16/21 04/02/25 History
mcg (1,000 unit) tablet (Vitamin
D3)
carvedilol 25 mg tablet 25 mg PO BID Blood Pressure 07/30/23 04/02/25 History
coenzyme Q10 100 mg capsule (Co 100 mg PO DAILY Supplement 07/30/23 04/02/25 History
Q-10)
diazepam 5 mg tablet 5 mg PO HSPRN PRN sleep 07/30/23 04/02/25 History
famotidine 20 mg tablet 20 mg PO BIDPRN PRN acid 07/30/23 04/02/25 History
reflux/heartburn
finasteride 5 mg tablet 5 mg PO DAILY prostate issue 07/30/23 04/02/25 History
levothyroxine 125 mcg tablet 125 mcg PO DAILY AT 0700 Thyroid 07/30/23 04/02/25 History
multivitamin 1 tab PO DAILY Supplement 07/30/23 04/02/25 History
semaglutide 0.25 mg or 0.5 mg (2 0.5 mg SC CAMACHO Diabetes 07/30/23 04/02/25 History
mg/3 mL) subcutaneous pen injector
(Ozempic)
valsartan 160 mg tablet 160 mg PO BID Blood Pressure 07/30/23 04/02/25 History
isosorbide mononitrate 30 mg 30 mg PO DAILY #30 tabs 03/19/25 04/02/25 Rx
tablet,extended release 24 hr
rosuvastatin 40 mg tablet 40 mg PO DAILY 04/02/25 04/02/25 History
Review of Systems
-
History Source: Patient and Family
General: Reports No Symptoms
HEENT: Reports No Symptoms
Respiratory: Reports SOB and FRY
Cardiac: Reports Chest Pain, CAD and Known Vascular Disease
Abdomen/GI: Reports No Symptoms
: Reports No Symptoms
Musculoskeletal: Reports No Symptoms
Skin: Reports No Symptoms
Neurological: Reports No Symptoms
Vascular: Reports No Symptoms
Physical Exam
Vital Signs
Temp 98.3 F 04/03/25 14:47
Temp route: Oral 04/03/25 14:47
Pulse 82 04/03/25 14:47
Rhythm: Sinus arrhythmia 04/03/25 10:20
With- First Degree Heart Block 04/03/25 10:20
Resp Rate 18 04/03/25 14:47
Blood pressure 134/79 04/03/25 14:47
Blood pressure extremity used: Right upper arm 04/03/25 14:47
Position: Lying 04/03/25 14:47
MAP (cuff-Arnav Monitor) 98 04/02/25 21:00
SaO2 97 04/03/25 14:47
Oxygen Mode of Delivery Room air 04/03/25 14:47
Can the patient verbally communicate their pain? Yes 04/03/25 10:20
Actual Weight 88.949 kg 04/03/25 05:31
Body Mass Index (BMI) 29.0 04/03/25 05:31
Labs
04/03/25 05:21
04/03/25 05:22
Troponin I < 0.012 ng/ml 04/03/25 11:07
Exam
General: Well Developed, Well Nourished and No Apparent Distress
HEENT: Normocephalic and Anicteric
Respiratory: Clear
Cardiac: S1/S2 and Regular Rhythm
GI: Soft, Non Tender and Non Distended
Rectal: Deferred by Provider
Skin: Warm and Dry
Neuro: Awake, Alert and Oriented
Psych: Calm
Assessment / Plan
-
# Multivessel coronary artery disease with prior PCI to RCA and LAD, failed intervention on RPL 2 branch 2 weeks ago, NSTEMI
Given the patient's young age, continued symptoms, and recent failed PCI and the patient be considered for CABG as a definitive revascularization strategy. I discussed the perioperative expectations with the patient and his and answered his
questions to his satisfaction. I have ordered preoperative risk stratification. Patient last took Plavix yesterday morning. This would normally require a 5-day washout. Will discuss with Dr. Sorenson. May obtain TEG/platelet mapping to further
evaluate degree of platelet dysfunction and derangements of the coagulation cascade. Surgical timing to be determined based on these results. The patient will be independently evaluated by the attending surgeon who will comment definitively on the
patient's surgical candidacy/timing. Medical management of the patient's coronary artery disease in the interim per cardiology.
#Hypertension
#Non insulin dependent diabetes mellitus
#Hypothyroidism
#Hx of SVT s/p ablation
#Hx of migraines/right eye optic neuritis
Data Reviewed
-
EKG: Tracing Personally Visualized and interpreted and Report Reviewed by me
[facility] [employer] [facility]: Image Personally Visualized and interpreted and Report Reviewed by me
Echo: Image Personally Visualized and interpreted and Report Reviewed by me
Radiology: Image Personally Visualized and interpreted and Report Reviewed by me
CT Scan: Image Personally Visualized and interpreted and Report Reviewed by me
Labs: Labs Reviewed by me
Old Records: Reviewed
Total Time Spent with Patient (in minutes): 60
[2025-04-03 16:58] LABS: Glucose - Point of Care 98 mg/dl (70-99)
[2025-04-03] MEDS: LOVENOX 40 MG SC (17:26)
[2025-04-03] MEDS: ZETIA 10 MG PO (21:13)
[2025-04-03] MEDS: ELAVIL 10 MG PO (21:13)
[2025-04-03 21:41] LABS: Glucose - Point of Care 142 mg/dl (70-99)
[2025-04-03] MEDS: VALIUM 5 MG PO (23:30)
--- NOTE | 2025-04-04 00:17 | RESPNOTE ---
Will hold off on obtaining ABG until patient has been definitively accepted as a surgical candidate.
[2025-04-04 03:45] VITALS: BP 123/66
[2025-04-04] MEDS: SYNTHROID 125 MCG PO (05:31)
[2025-04-04 06:00] VITALS: BMI 28.8
[2025-04-04 06:39] LABS: Hematocrit 29.8 % (39.0-52.0); Hemoglobin 10.5 g/dL (13.0-18.0); Mean Corp Hgb Conc. 35.2 g/dL (33.0-37.0); Mean Corpuscular Volume 85.6 fL (80.0-94.0); Platelet Count 231 10^3/uL (130-400); Red Cell Dist. Width 12.0 % (11.5-14.5)
[2025-04-04 06:51] LABS: INR 1.05; PT 14.0 Sec (11.4-14.6)
[2025-04-04 06:52] LABS: APTT 32.7 Sec (23.4-35.0)
[2025-04-04 07:02] LABS: ALT (SGPT) 24 U/L (0-50); AST (SGOT) 22 U/L (17-59); Albumin 4.2 g/dl (3.5-5.0); Alkaline Phosphatase 46 U/L (38-126); Blood Urea Nitrogen 20 mg/dl (9-20); Calcium 9.1 mg/dl (8.4-10.2); Carbon Dioxide 25 mmol/L (22-30); Chloride 109 mmol/L (98-107); Estimated Creatinine Clearance 67 ml/min; Glucose 113 mg/dl (70-99); Potassium 4.0 mmol/L (3.5-5.1); Sodium 142 mmol/L (135-145); Total Protein 6.7 g/dl (6.3-8.2); eGFR > 60.00
[2025-04-04 07:34] LABS: B.E. 1.9 mmol/L; HCO3 26.6 mmol/L (21-28); O2 Saturation % 98.6 % (94-98); PCO2 41 mmHg (35-48); PO2 77 mmHg (83-108)
[2025-04-04 08:02] VITALS: BP 122/76
[2025-04-04 08:13] LABS: Glucose - Point of Care 141 mg/dl (70-99)
[2025-04-04] MEDS: IMDUR (EXTENDED RELEASE) 30 MG PO (08:25)
[2025-04-04] MEDS: NORVASC 10 MG PO (08:25)
[2025-04-04] MEDS: DIOVAN 160 MG PO (08:25)
[2025-04-04] MEDS: FLOMAX 0.8 MG PO (08:25)
[2025-04-04] MEDS: CRESTOR 40 MG PO (08:26)
[2025-04-04] MEDS: COREG 25 MG PO ×2 (08:26→19:49)
[2025-04-04] MEDS: PROSCAR 5 MG PO (08:26)
[2025-04-04] MEDS: ASPIR LOW (ENTERIC COATED) 81 MG PO (08:26)
[2025-04-04] MEDS: VITAMIN D3 (cholecalciferol) 50 MCG PO (08:26)
[2025-04-04] MEDS: NOVOLOG FLEXPEN-LOW RESISTANCE SC ×2 (08:27→16:42)
--- NOTE | 2025-04-04 08:41 | W.PN.CD ---
Addendum entered and electronically signed by Rommel Alvarez MD 04/04/25 09:45:
I saw and examined the patient.
Dr Oglesby note was reviewed and I agree with the note.
Comment: Patient has not had any more CP. He feels well, tentative CABG Thursday.
Original Note:
Today's Communication / Plan
-
Cont hold plavix
Surgery tentatively Thursday
Impression / Plan
-
74-year-old male with past medical history of ASCVD (LAD 2003, RCA 2005, RCA 2013) on DAPT, hypertension, type 2 diabetes, SVT (s/p ablation [facility] 2016), hypothyroidism, Peyronie's disease, migraines, type 2 diabetes, right eye optic neuritis (tx 2022
steroids), pyloric stenosis (s/p surgery 3 weeks old), presented to the ED complaining of chest pain, fatigue and blurry vision. Patient was hospitalized here from 03/17-03/19/2025 secondary to NSTEMI. He underwent cardiac cath on 03/17 revealing
100% stenosis of R PL 2 within previous stented segments. PCI was unsuccessful and medical management with 48 hours of heparin, DAPT and was discharged on Imdur. He described the episodes of chest pain to be 1-2 out of 10 in pain, short-lived, no
radiating pain, associated with right eye blurry vision, nausea, shortness of breath. Triggered with movement, better with rest.
Primary Vp Data: Dr. Alvarez
ASCVD (LAD 2003, RCA 2005, RCA 2013)
NSTEMI s/p unsuccessful PCI 03/17/2025
Chest pain
-EKG and troponin not concerning for NSTEMI
-Cardiac catheterization 03/17/2025 revealed 100% stenosis of RPL 2 with the previously stented segment. Unsuccessful attempt.
-TTE on 03/17/2025 revealed LVEF 55 to 60%, no regional wall motion abnormalities, aortic sclerosis, mild MR
-Symptoms consistent with angina
-If non-surgical approach, consider adding ranolazine
-Clopidogrel (last dose 04/02 am) and metformin on hold pending decision for surgical intervention
-Patient will likely undergo CABG thursday per CT surgery. TEG/Platelet mapping done to help eval timing of surgery.
-Vascular US R carotid <50% stenosis, L between 50 and 70% stenosis
-Chest CT severe coronary artery calcifications
-LDL 30 at goal on crestor 40
-Cont tele
HTN
-Currently patient's home meds are amlodipine 10 mg daily, carvedilol 25 twice daily, valsartan 160 twice daily, isosorbide mononitrate 30 mg daily
-Orthostatic vitals not consistent with orthostatic hypotension
History of SVT status post ablation 2017 at [facility] by Dr. Suresh
Diabetes 2
-Hga1c 6.7 03/17/25 at goal
-Metformin on hold pending surgical intervention
-SSI
-Consider adding farxiga at discharge
HLD
-Cont crestor
-LDL 30 at goal
Blurry vision
-Head CT no signs of acute infarct
-No focal neurological deficits, visual guerra intact, today no blurry vision
-MRI cancelled as symptoms gone
-Of note, hx optic neuritis 07/2023 s/p IV solu-medrol and prednisone taper. MRI 2022 no signs of MS.
DVT lovenox
Physical Exam
Vital Signs/Labs
Vital Signs
Temp Pulse Resp BP Pulse Ox
98.0 F 80 17 122/76 98
04/04/25 08:02 04/04/25 08:26 04/04/25 08:02 04/04/25 08:26 04/04/25 08:02
04/03/25 04/04/25 04/05/25
06:59 06:59 06:59
Actual Weight 88.949 kg 88.536 kg
04/04/25 06:21
04/04/25 06:21
PT 14.0 Sec (11.4-14.6) 04/04/25 06:21
INR 1.05 04/04/25 06:21
APTT 32.7 Sec (23.4-35.0) 04/04/25 06:21
LAB Results
04/02/25 04/02/25 04/02/25
19:20 21:58 23:26
Troponin I < 0.012 Cancelled < 0.012
04/03/25 04/03/25
05:21 11:07
Troponin I < 0.012 < 0.012
Physical Exam
Constitutional: No acute distress and Comfortable
Cardiovascular: Pedal edema is absent, S1S2 is normal and Murmur/rub/gallop absent (2/6 systolic murmur at cardiac apex and aortic point)
Respiratory: Lungs clear to auscul.
Neuro/Psych: AO x 3
Data Reviewed
-
Date of Service: April 04, 2025
[2025-04-04 11:06] VITALS: BP 114/66
--- NOTE | 2025-04-04 11:27 | W.PN.HOSP.TC ---
Today's Communication/Plan
-
await further CTS input-timing of surgery
pre-op testing ongoing
remains chest pain free
Assessment / Plan
Assessment / Plan
A/P: Patient is a 74y M with PMH significant for ASCVD, HTN and DM-II who presents to ED complaining of lightheadedness, fatigue, chest paina nd blurry vision.
CAD status post stents
Suspected angina
- Recent admission for NSTEMI with peak troponin of 12.
- Initial trop today is undetectable. EKG unchanged from prior. Pain free at present.
- Continue ASA, statin. Plavix on hold for surgery
- Follow for any recurrent symptoms.
- Troponin remains negative. Plavix is being held for possible plan for intervention
- TTE 03/17/2025: LVEF 55-60%, no regional wall motion abnormalities, aortic sclerosis
- Cardiothoracic evaluation for additional recommendations. Await plavix washout. Remains chest pain free. Denies shortness of breath. Unclear if plan for surgery this admission. Await further CTS input.
Lightheaded / Fatigue
- Unclear etiology - ? related to recent NSTEMI versus hypotension
- Echo done during that admission was unremarkable.
- Imdur added last admission - no other significant med changes.
- resolved.
History of right eye optic neuritis
- Remains with intermittent blurred vision-chronic.
- Currently asymptomatic
- Monitor. DC MRI for now.
Benign Hypertension
- Stable. Continue current med regimen with holding parameters.
- Orthostatics as noted above.
DM-II
- Stable. Hold metformin acutely.
- Follow glucose and cover with SSI as needed.
- A1C during recent admission was 6.7%.
CKD III
- Stable. Renal function is at / near known baseline.
BPH
- Stable. Continue current med regimen.
- Bladder scan protocol.
Migraine Headaches
- No headache at present.
- Follow for changes.
DVT Prophylaxis: Lovenox
Code Status: Full
Discussed with spouse at bedside in detail
Anticipated Discharge: > 48 hours
Subjective/Interval History
-
Date of Service: April 04, 2025
sitting in chair
No chest pain-remains pain free
no blurry vision
Objective Data
-
Labs:
Laboratory Results
04/04/25 04/04/25
06:21 07:26
WBC 9.8
Hgb 10.5 L
Hct 29.8 L
Plt Count 231
PT 14.0
INR 1.05
APTT 32.7
HCO3 26.6
Sodium 142
Potassium 4.0
Chloride 109 H
Carbon Dioxide 25
BUN 20
Creatinine 1.0
Glucose 113 H
Calcium 9.1
Total Bilirubin 0.8
AST 22
ALT 24
Alkaline Phosphatase 46
Vital Signs:
Vital Signs
Temp Pulse Resp BP Pulse Ox
97.9 F 79 18 114/66 98
04/04/25 11:06 04/04/25 11:06 04/04/25 11:06 04/04/25 11:06 04/04/25 11:06
I&O
04/03/25 04/04/25 04/05/25
06:59 06:59 06:59
Intake Total 660 / 660 240 / 240
Balance 660 / 660 240 / 240
Physical Exam
-
General: Well Developed and No Apparent Distress
HEENT: Normocephalic, Atraumatic and Moist Mucous Membranes
Respiratory: Clear to Auscultation
Cardiac: Regular Rhythm and S1/S2; Negative Murmur, Rub or Gallop
GI: Soft, Nontender, Nondistended and Normal Bowel Sounds; Negative Organomegaly
Rectal: Deferred by Provider
Musculoskeletal: No Clubbing, No Cyanosis and No Edema
Skin: Warm; Negative Rash
Neuro: Awake, Alert, Oriented, AO x 3, No Motor Deficits and Nonfocal/Grossly Intact; Negative Tremors, Sedated, Slurred Speech or Facial Droop
Psych: Calm
--- NOTE | 2025-04-04 11:35 | W.PN.UPDATE ---
Update Note
Progress Note Update
STS RISK SCORE
Procedure Type:�Isolated CABG
Perioperative Outcome Estimate %
Operative Mortality 0.927%
Morbidity & Mortality 5.62%
Stroke 1.03%
Renal Failure 1.05%
Reoperation 1.76%
Prolonged Ventilation 3.02%
Deep Sternal Wound Infection 0.168%
Long Hospital Stay (>14 days) 3.43%
Short Hospital Stay (<6 days)* 50.3%
Clinical Summary
Planned Surgery: Isolated CABG, Urgent, First cardiovascular surgery
Demographics: 74 year old, male, 88.9kg, 175cm, BMI: 29 kg/m�
Lab Values: Creatinine: 1 mg/dL, Hematocrit: 29.8%, WBC Count: 9.8 10�/�L, Platelet Count: 576992 cells/�L
PreOp Medications: Oral diabetes control
Substance Abuse: Former smoker, Alcohol use: 2-7 drinks/week
Risk Factors / Comorbidities: Diabetes Mellitus , Hypertension
Cardiac Status: NYHA Class II, Ejection Fraction = 57%
Coronary Artery Disease: 3 vessels diseased, Proximal LAD Stenosis >=70%, Non-ST Elevation SD, SD: 1 to 7 Days
Valve Disease: Mild MR, Mild TR
Prev. Cardiac Interv: Previous PCI: Not during this episode of care
[2025-04-04 11:45] LABS: Glucose - Point of Care 203 mg/dl (70-99)
--- NOTE | 2025-04-04 14:00 | CHAP ---
Msgr. Joni Gibbs of [facility] in [place] gave the Sacrament of the Sick and Holy Communion. Exact time uncertain.
[2025-04-04] MEDS: NOVOLOG FLEXPEN-LOW RESISTANCE 2 UNITS SC (14:24)
[2025-04-04 15:12] VITALS: BP 121/75
[2025-04-04 16:36] LABS: Glucose - Point of Care 109 mg/dl (70-99)
[2025-04-04 19:15] VITALS: BP 157/75
[2025-04-04 19:35] VITALS: BMI 29.1
--- NOTE | 2025-04-04 19:50 | TRANSFER ---
Pt transferred to IVU via wheelchair. Report given to JanuaryBaylee
--- NOTE | 2025-04-04 20:00 | PTCARENOTE ---
Received pt @ approx 1930 as transfer from [facility] via wheelchair accompanied by RN. pt AAOx3. SR with 1st degree AVB. Denies any chest pain or SOB. Oriented pt to room. pt ambulated hallways with . Encouraged pt to call junior staff accountant with any
questions or concerns. Call lawrence within reach.
[2025-04-04 22:09] VITALS: BP 113/98
[2025-04-04] MEDS: ELAVIL 10 MG PO (22:09)
[2025-04-04] MEDS: ZETIA 10 MG PO (22:09)
[2025-04-04] MEDS: VALIUM 5 MG PO (22:13)
[2025-04-04 22:18] LABS: Glucose - Point of Care 162 mg/dl (70-99)
[2025-04-05] VITALS (9 sets, daily range): BP systolic 118–139; BP diastolic 71–86; PULSE 92–98; BMI 28.7
[2025-04-05] MEDS: SYNTHROID 125 MCG PO (06:11)
[2025-04-05 08:50] LABS: Glucose - Point of Care 137 mg/dl (70-99)
--- NOTE | 2025-04-05 08:50 | W.PN.CD ---
Today's Communication / Plan
-
CABG
Impression / Plan
-
74-year-old male with past medical history of ASCVD (LAD 2004, RCA 2006, RCA 2013) on DAPT, hypertension, type 2 diabetes, SVT (s/p ablation [facility] 2016), hypothyroidism, Peyronie's disease, migraines, type 2 diabetes, right eye optic neuritis (tx 2022
steroids), pyloric stenosis (s/p surgery 3 weeks old), presented to the ED complaining of chest pain, fatigue and blurry vision. Patient was hospitalized here from 03/17-03/19/2025 secondary to NSTEMI. He underwent cardiac cath on 03/17 revealing
100% stenosis of R PL 2 within previous stented segments. PCI was unsuccessful and medical management with 48 hours of heparin, DAPT and was discharged on Imdur. He described the episodes of chest pain to be 1-2 out of 10 in pain, short-lived, no
radiating pain, associated with right eye blurry vision, nausea, shortness of breath. Triggered with movement, better with rest.
Primary [employer] [facility] Picker: Dr. Alvarez
ASCVD (LAD 2003, RCA 2005, RCA 2013)
NSTEMI s/p unsuccessful PCI 03/17/2025
Chest pain
-EKG and troponin not concerning for NSTEMI
-Cardiac catheterization 03/17/2025 revealed 100% stenosis of RPL 2 with the previously stented segment. Unsuccessful attempt.
-TTE on 03/17/2025 revealed LVEF 55 to 60%, no regional wall motion abnormalities, aortic sclerosis, mild MR
-Symptoms consistent with angina
-If non-surgical approach, consider adding ranolazine
-Clopidogrel (last dose 04/02 am) and metformin on hold pending decision for surgical intervention
-Patient will likely undergo CABG per CT surgery.
-Vascular US R carotid <50% stenosis, L between 50 and 70% stenosis
-Chest CT severe coronary artery calcifications
-LDL 30 at goal on crestor 40
-Cont tele
HTN
-Currently patient's home meds are amlodipine 10 mg daily, carvedilol 25 twice daily, valsartan 160 twice daily, isosorbide mononitrate 30 mg daily
-Orthostatic vitals not consistent with orthostatic hypotension
History of SVT status post ablation 2017 at [facility] by Dr. Suresh
Diabetes 2
-Hga1c 6.7 03/17/25 at goal
-Metformin on hold pending surgical intervention
-SSI
-Consider adding farxiga at discharge
HLD
-Cont crestor
-LDL 30 at goal
Blurry vision
-Head CT no signs of acute infarct
-No focal neurological deficits, visual guerra intact, today no blurry vision
-MRI cancelled as symptoms gone
-Of note, hx optic neuritis 07/2023 s/p IV solu-medrol and prednisone taper. MRI 2022 no signs of MS.
Subjective: Feeling well
Physical Exam
Vital Signs/Labs
Vital Signs
Temp Pulse Resp BP Pulse Ox
97.5 F 82 16 139/86 96
04/05/25 08:07 04/05/25 08:15 04/05/25 08:07 04/05/25 08:07 04/05/25 08:07
04/04/25 04/05/25 04/06/25
06:59 06:59 06:59
Actual Weight 195 lb 3 oz 194 lb 0.108 oz
04/04/25 06:21
04/04/25 06:21
PT 14.0 Sec (11.4-14.6) 04/04/25 06:21
INR 1.05 04/04/25 06:21
APTT 32.7 Sec (23.4-35.0) 04/04/25 06:21
LAB Results
04/02/25 04/02/25 04/02/25
19:20 21:58 23:26
Troponin I < 0.012 Cancelled < 0.012
04/03/25 04/03/25
05:21 11:07
Troponin I < 0.012 < 0.012
Physical Exam
Constitutional: No acute distress and Comfortable
EENT: Anicteric
Cardiovascular: Rhythm & rate is regular
Respiratory: Respiratory effort normal and Lungs clear to auscul.
GI: Soft
Neuro/Psych: AO x 3
Data Reviewed
-
Date of Service: April 05, 2025
Medical Decision Making: Reviewed Test Results
EKG: Tracing Personally Visualized and interpreted (sr)
Echo: Report Reviewed by me
Labs: Labs Reviewed by me
[2025-04-05] MEDS: ASPIR LOW (ENTERIC COATED) 81 MG PO (09:16)
[2025-04-05] MEDS: NOVOLOG FLEXPEN-LOW RESISTANCE SC ×3 (09:16→17:07)
[2025-04-05] MEDS: FLOMAX 0.8 MG PO (09:17)
[2025-04-05] MEDS: COREG 25 MG PO ×2 (09:17→20:04)
[2025-04-05] MEDS: IMDUR (EXTENDED RELEASE) 30 MG PO (09:17)
[2025-04-05] MEDS: NORVASC 10 MG PO (09:17)
[2025-04-05] MEDS: VITAMIN D3 (cholecalciferol) 50 MCG PO (09:18)
[2025-04-05] MEDS: PROSCAR 5 MG PO (09:18)
[2025-04-05] MEDS: FLUSH (NSS) 1 FLUSH IV (09:18)
--- NOTE | 2025-04-05 10:35 | PTCARENOTE ---
Received patient this morning sitting oob in the chair. Lab work sent and patient now for the CVOR tomorrow. He denies any chest pain or sob, happy that his surgery can be done sooner. Able to shower and now ambulating in the carlson with his .
--- NOTE | 2025-04-05 10:43 | W.PN.HOSP.TC ---
Today's Communication/Plan
-
CAD with multivessel disease
Angina
Plan for CABG tentatively tomorrow
Diovan held
Labs ordered
Assessment / Plan
Assessment / Plan
A/P: Patient is a 74y M with PMH significant for ASCVD, HTN and DM-II who presents to ED complaining of lightheadedness, fatigue, chest paina nd blurry vision.
CAD status post stents with multivessel disease process
Fatigue/significantly decreased exercise tolerance likely secondary to angina
- Recent admission for NSTEMI with peak troponin of 12.
- Troponin negative. EKG unchanged from prior. Pain free at present.
- Continue ASA, statin. Plavix on hold for surgery
- Follow for any recurrent symptoms.
- Troponin remains negative. Plavix is being held for possible plan for intervention
- TTE 03/17/2025: LVEF 55-60%, no regional wall motion abnormalities, aortic sclerosis
- Cardiothoracic evaluation for additional recommendations. Continue to hold Plavix. Plan for tentative surgery tomorrow.
Lightheaded / Fatigue
- Unclear etiology - ? related to recent NSTEMI versus hypotension
- Echo done during that admission was unremarkable.
- Imdur added last admission - no other significant med changes.
- resolved.
History of right eye optic neuritis
- Remains with intermittent blurred vision-chronic.
- Currently asymptomatic
- Monitor. DC MRI for now.
Benign Hypertension
- Stable. Continue current med regimen with holding parameters.
- Diovan on hold for surgery. Continue with Norvasc, carvedilol. Blood pressure controlled.
DM-II
- Stable. Hold metformin acutely.
- Follow glucose and cover with SSI as needed.
- A1C during recent admission was 6.7%.
CKD III
- Stable. Renal function is at / near known baseline.
BPH
- Stable. Continue current med regimen.
- Bladder scan protocol.
Migraine Headaches
- No headache at present.
- Follow for changes.
DVT Prophylaxis: Lovenox
Code Status: Full
Anticipated Discharge: > 48 hours
Subjective/Interval History
-
Date of Service: April 05, 2025
no overnight events
denies chest pain
Objective Data
-
Vital Signs:
Vital Signs
Temp Pulse Resp BP Pulse Ox
97.5 F 82 16 139/86 96
04/05/25 08:07 04/05/25 08:15 04/05/25 08:07 04/05/25 08:07 04/05/25 08:07
I&O
04/04/25 04/05/25 04/06/25
06:59 06:59 06:59
Intake Total 660 / 660 360 / 360
Balance 660 / 660 360 / 360
Physical Exam
-
General: Well Developed and No Apparent Distress
HEENT: Normocephalic, Atraumatic and Moist Mucous Membranes
Respiratory: Clear to Auscultation
Cardiac: Regular Rhythm and S1/S2; Negative Murmur, Rub or Gallop
GI: Soft, Nontender, Nondistended and Normal Bowel Sounds; Negative Organomegaly
Rectal: Deferred by Provider
Musculoskeletal: No Clubbing, No Cyanosis and No Edema
Skin: Warm; Negative Rash
Neuro: Awake, Alert, Oriented, AO x 3, No Motor Deficits and Nonfocal/Grossly Intact; Negative Tremors, Sedated, Slurred Speech or Facial Droop
Psych: Calm
[2025-04-05 12:24] LABS: Glucose - Point of Care 145 mg/dl (70-99)
--- NOTE | 2025-04-05 13:30 | CM ---
Chart reviewed. Patient is independent of ADLS, lives with his in a 1 story condo, 1 STEPHEN, 0 DME. Patient tentatively going for a CABG on 04/06. Reviewed preoperative and postoperative instructions and restrictions, along with showering
guidelines. Gave patient Cardiac Surgery Book. Patient is agreeable to a home visit by CT Transitional RN. Plan is for the patient to go home with CT Transitional RN. CM to follow
[2025-04-05 17:03] LABS: Glucose - Point of Care 122 mg/dl (70-99)
[2025-04-05] MEDS: ZETIA 10 MG PO (22:33)
[2025-04-05] MEDS: ELAVIL 10 MG PO (22:33)
[2025-04-05] MEDS: VALIUM 5 MG PO (22:34)
[2025-04-05 22:38] LABS: Glucose - Point of Care 161 mg/dl (70-99)
--- NOTE | 2025-04-05 23:07 | PTCARENOTE ---
Received pt at change of shift resting in bed. SR on the monitor, HR in the 90's. pt denies any chest pain or SOB. Orthostatic VS obtained--see worklist. pt denies lightheadedness/dizziness at this time. pt clipped, first CHG bath completed. CT
surgery CASIE Duron in to assess pt following clip and first wash. Wedding ring given to to take home. Call lawrence within reach.
[2025-04-06] VITALS (13 sets, daily range): BP systolic 97–152; BP diastolic 70–83; BMI 28.7
[2025-04-06 03:26] LABS: Hematocrit 31.8 % (39.0-52.0); Hemoglobin 11.0 g/dL (13.0-18.0); Mean Corp Hgb Conc. 34.6 g/dL (33.0-37.0); Mean Corpuscular Volume 87.1 fL (80.0-94.0); Nucleated Red Blood Cells % 0 % (-); Platelet Count 232 10^3/uL (130-400); Red Cell Dist. Width 12.0 % (11.5-14.5)
[2025-04-06 03:44] LABS: INR 1.08; PT 14.5 Sec (11.4-14.6)
[2025-04-06 03:45] LABS: APTT 31.8 Sec (23.4-35.0)
[2025-04-06 03:50] LABS: ALT (SGPT) 28 U/L (0-50); AST (SGOT) 22 U/L (17-59); Albumin 4.1 g/dl (3.5-5.0); Alkaline Phosphatase 48 U/L (38-126); Blood Urea Nitrogen 24 mg/dl (9-20); Calcium 9.4 mg/dl (8.4-10.2); Carbon Dioxide 23 mmol/L (22-30); Chloride 109 mmol/L (98-107); Estimated Creatinine Clearance 56 ml/min; Glucose 118 mg/dl (70-99); Potassium 4.1 mmol/L (3.5-5.1); Sodium 140 mmol/L (135-145); Total Protein 6.8 g/dl (6.3-8.2); eGFR > 60.00
[2025-04-06] MEDS: SYNTHROID 125 MCG PO (06:01)
[2025-04-06] MEDS: LOPRESSOR 25 MG PO (06:02)
[2025-04-06] MEDS: MAGNESIUM OXIDE 500 MG PO (06:02)
[2025-04-06] MEDS: PROTONIX 40 MG PO (06:02)
[2025-04-06] MEDS: BACTROBAN 2% OINTMENT 1 APPLIC NASAL ×2 (06:03→19:45)
[2025-04-06 06:05] LABS: Glucose - Point of Care 127 mg/dl (70-99)
--- NOTE | 2025-04-06 06:13 | PTCARENOTE ---
pt scheduled for CVOR later in the day, okay to give pre-op meds per CV[facility]. Second CHG bath/wipes performed. pt in CVICU bed. AM labs drawn and sent. b/l BP obtained and sent. Call lawrence within reach.
[2025-04-06] MEDS: FLOMAX PO (08:32)
[2025-04-06] MEDS: ASPIR LOW (ENTERIC COATED) PO (08:32)
[2025-04-06] MEDS: COREG PO (08:32)
[2025-04-06] MEDS: PROSCAR PO (08:33)
[2025-04-06] MEDS: NORVASC PO (08:33)
[2025-04-06] MEDS: IMDUR (EXTENDED RELEASE) PO (08:33)
[2025-04-06] MEDS: VITAMIN D3 (cholecalciferol) PO (08:33)
--- NOTE | 2025-04-06 08:33 | PTCARENOTE ---
received patient this am, at bedside. monitor shows NSR with a first degree, VSS. patient remains NPO. talked to Jacinda GUAJARDO, will hold all 0800 medications.
--- NOTE | 2025-04-06 09:17 | W.PN.HOSP.TC ---
Today's Communication/Plan
-
Plan for CABG today
Postop management per CT surgery
Assessment / Plan
Assessment / Plan
A/P: Patient is a 74y M with PMH significant for ASCVD, HTN and DM-II who presents to ED complaining of lightheadedness, fatigue, chest paina nd blurry vision.
CAD status post stents with multivessel disease process
Fatigue/significantly decreased exercise tolerance likely secondary to angina
- Recent admission for NSTEMI with peak troponin of 12.
- Troponin negative. EKG unchanged from prior. Pain free at present.
- Continue ASA, statin. Plavix on hold for surgery
- Follow for any recurrent symptoms.
- Troponin remains negative. Plavix is being held for possible plan for intervention
- TTE 03/17/2025: LVEF 55-60%, no regional wall motion abnormalities, aortic sclerosis
- Plavix continues remains on hold. Plan for surgery later today. Patient remains NPO. Postop care per CT surgery.
Lightheaded / Fatigue
- Unclear etiology - ? related to recent NSTEMI versus hypotension
- Echo done during that admission was unremarkable.
- Imdur added last admission - no other significant med changes.
- resolved.
History of right eye optic neuritis
- Remains with intermittent blurred vision-chronic.
- Currently asymptomatic
- Monitor. DC MRI for now.
Benign Hypertension
- Stable. Continue current med regimen with holding parameters.
- Diovan on hold for surgery. Continue with Norvasc, carvedilol. Blood pressure controlled 134/76
DM-II
- Stable. Hold metformin acutely.
- Follow glucose and cover with SSI as needed.
- A1C during recent admission was 6.7%.
CKD III
- Stable. Renal function is at / near known baseline.
BPH
- Stable. Continue current med regimen.
- Bladder scan protocol.
Migraine Headaches
- No headache at present.
- Follow for changes.
Hyperlipidemia
Cholesterol on hold for surgery
DVT Prophylaxis: Lovenox on hold for surgery
Code Status: Full
Anticipated Discharge: > 48 hours
Subjective/Interval History
-
Date of Service: April 06, 2025
Resting in chair comfortably
Patient remains n.p.o.
States he talked to surgeon earlier today
Denies any chest pain or blurry vision
Objective Data
-
Labs:
Laboratory Results
04/06/25
03:07
WBC 9.3
Hgb 11.0 L
Hct 31.8 L
Plt Count 232
PT 14.5
INR 1.08
APTT 31.8
Sodium 140
Potassium 4.1
Chloride 109 H
Carbon Dioxide 23
BUN 24 H
Creatinine 1.2
Glucose 118 H
Calcium 9.4
Total Bilirubin 0.9
AST 22
ALT 28
Alkaline Phosphatase 48
Vital Signs:
Vital Signs
Temp Pulse Resp BP Pulse Ox
98 F 86 20 132/81 94
04/06/25 07:48 04/06/25 06:02 04/06/25 07:48 04/06/25 06:02 04/06/25 07:48
I&O
04/05/25 04/06/25 04/07/25
06:59 06:59 06:59
Intake Total 360 / 360 720 / 720
Balance 360 / 360 720 / 720
Physical Exam
-
General: Well Developed and No Apparent Distress
HEENT: Normocephalic, Atraumatic and Moist Mucous Membranes
Respiratory: Clear to Auscultation
Cardiac: Regular Rhythm and S1/S2; Negative Murmur, Rub or Gallop
GI: Soft, Nontender, Nondistended and Normal Bowel Sounds; Negative Organomegaly
Rectal: Deferred by Provider
Musculoskeletal: No Clubbing, No Cyanosis and No Edema
Skin: Warm; Negative Rash
Neuro: Awake, Alert, Oriented, AO x 3, No Motor Deficits and Nonfocal/Grossly Intact; Negative Tremors, Sedated, Slurred Speech or Facial Droop
Psych: Calm
--- NOTE | 2025-04-06 10:29 | CM ---
Chart reviewed. Patient is waiting to go to the OR, at bedside. Patient is independent of ADLS, lives with his in a 1 story condo, 1 STEPHEN, 0 DME. Plan is for the patient to return home with CT Transitional RN. CM to follow
--- NOTE | 2025-04-06 11:28 | PTCARENOTE ---
patient transported to OR with all equipment ordered, by RN and PCT. CHG wipes done, Ancef sent with patient.
--- NOTE | 2025-04-06 11:31 | PTCARENOTE ---
personal belongings were walked over to CVICU by PCT.
[2025-04-06 12:00] LABS: ACT+ - POC 123 Seconds (82-134)
[2025-04-06 12:10] LABS: Urine Character Clear (Clear)
[2025-04-06 12:37] LABS: Urine Squamous Cell 0-2 /LPF (Few)
[2025-04-06 12:41] LABS: Urine Urothelial Cell 16-20 /LPF (FEW)
[2025-04-06 12:42] LABS: Urine Red Blood Cell 0-2 /HPF (0-2)
[2025-04-06 12:43] LABS: Urine White Cell 0-2 /HPF (0-5)
--- NOTE | 2025-04-06 13:19 | CON.INTV ---
Consultation
Consultation Request
Date/Time Consultation Requested: 04/06/2025- 4 PM
Date/Time Consultation Performed: 04/06/2025- PM
Requesting Provider: cardiothoracic surgery
Performing Provider: Dr. Gutierrez
Reason for Consultation: postoperative ventilator/critical care management
Medical History
-
Chief Complaint: CAD
History of Present Illness:
74-year-old non-smoking male with a history of hypertension, diabetes, and CAD recently hospitalized for NSTEMI and underwent cardiac catheterization and unsuccessful stenting and he pursued medical therapy, however, since then he has had
intermittent fatigue and exercise intolerance and surgical revascularization was elected-pewter caster was consulted for postoperative ventilator/critical care management 04/06/2025.
Past Medical History
Past Medical History: None (. Hypertension. Diabetes. CAD/stent X 5. SVT/ablation. Migraines. 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 skin cancer excision. Left knee arthroscopy.)
Social History
Tobacco: Non-smoker
Alcohol: Occasional
Drug: None
Living: With Family
Occupational Exposures: No known asbestos exposure
Environmental Exposures: no known tuberculosis exposure
Family History
Family History: Reviewed & Not Pertinent
Allergies / Home Medications
Allergies
Allergy/AdvReac Type Severity Reaction Status Date / Time
Sulfa (Sulfonamide Allergy Mild Rash Verified 04/02/25 18:19
Antibiotics)
Home Medications
�Medication �Instructions �Recorded �Confirmed �Last Taken �Type
aspirin 81 mg tablet,delayed 81 mg PO DAILY Blood Clot 11/18/12 04/02/25 03/16/25 08:00 History
release Prevention/Tx
clopidogrel 75 mg tablet 75 mg PO DAILY Blood Clot 11/18/12 04/02/25 03/16/25 08:00 History
Prevention/Tx
ezetimibe 10 mg tablet 10 mg PO HS High Cholesterol 11/18/12 04/02/25 03/16/25 22:00 History
flaxseed oil 1,000 mg capsule 3,000 mg PO DAILY Supplement 11/18/12 04/02/25 03/16/25 08:00 History
fluticasone propionate 50 1 spray intranasal DAILY PRN 11/18/12 04/02/25 03/16/25 08:00 History
mcg/actuation nasal breathing
spray,suspension
tamsulosin 0.4 mg capsule 0.8 mg PO DAILY Urinary Issue 11/23/13 04/02/25 03/16/25 08:00 History
amitriptyline 10 mg tablet 10 mg PO Mental Health 04/30/17 04/02/25 03/16/25 22:00 History
metformin 500 mg tablet 1,000 mg PO BID@0800,1700 Diabetes 04/30/17 04/02/25 03/16/25 18:00 History
Held on 03/19/25.
Instructions: Resume on
03/20/25. Resume Thursday
morning March 20.
nitroglycerin 0.4 mg sublingual 0.4 mg sublingual [id number] PRN 04/30/17 04/02/25 Unknown History
tablet chest pain
amlodipine 10 mg tablet 10 mg PO DAILY #30 tabs 05/01/17 04/02/25 03/16/25 08:00 Rx
cholecalciferol (vitamin D3) 25 50 mcg PO DAILY Supplement 07/16/21 04/02/25 03/16/25 08:00 History
mcg (1,000 unit) tablet (Vitamin
D3)
carvedilol 25 mg tablet 25 mg PO BID Blood Pressure 07/30/23 04/02/25 03/16/25 20:00 History
coenzyme Q10 100 mg capsule (Co 100 mg PO DAILY Supplement 07/30/23 04/02/25 03/16/25 08:00 History
Q-10)
diazepam 5 mg tablet 5 mg PO HSPRN PRN sleep 07/30/23 04/02/25 Unknown History
famotidine 20 mg tablet 20 mg PO BIDPRN PRN acid 07/30/23 04/02/25 03/16/25 08:00 History
reflux/heartburn
finasteride 5 mg tablet 5 mg PO DAILY prostate issue 07/30/23 04/02/25 03/16/25 08:00 History
levothyroxine 125 mcg tablet 125 mcg PO DAILY AT 0700 Thyroid 07/30/23 04/02/25 03/16/25 06:00 History
multivitamin 1 tab PO DAILY Supplement 07/30/23 04/02/25 03/16/25 08:00 History
semaglutide 0.25 mg or 0.5 mg (2 0.5 mg SC CAMACHO Diabetes 07/30/23 04/02/25 03/12/25 08:00 History
mg/3 mL) subcutaneous pen injector
(Ozempic)
valsartan 160 mg tablet 160 mg PO BID Blood Pressure 07/30/23 04/02/25 03/16/25 22:00 History
isosorbide mononitrate 30 mg 30 mg PO DAILY #30 tabs 03/19/25 04/02/25 Unknown Rx
tablet,extended release 24 hr
rosuvastatin 40 mg tablet 40 mg PO DAILY cholesterol 04/02/25 04/02/25 Unknown History
Review of Systems
-
Unable to Obtain full review of systems at this time due to: Patient Intubation and Other
Vitals / Labs / Diagnostic Testing
Vital Signs
Temp Pulse Resp BP Pulse Ox
98 F 79 20 134/76 97
04/06/25 07:48 04/06/25 11:00 04/06/25 07:48 04/06/25 07:46 04/06/25 08:30
Lab Data
04/06/25 03:07
04/06/25 03:07
Laboratory Results
04/06/25
03:07
PT 14.5
INR 1.08
APTT 31.8
Diagnostic Testing:
Physical Exam
-
Exam:
well-nourished and well-developed in no apparent distress
HEENT-atraumatic, normocephalic, oral tracheal intubation
Heart-regular rate and rhythm-no murmurs, rubs or gallops
Chest-clear to auscultation, no wheezes, crackles, median sternotomy bandage is not removed
Abdomen soft nondistended
Extremities-no cyanosis, clubbing, edema and good peripheral pulses
Integument-intact, no rashes, lesions or ecchymosis
Neurologically not alert, not oriented, not moving any of his extremities sedated on a ventilator
Assessment
-
74-year-old non-smoking male with a history of hypertension, diabetes, and CAD recently hospitalized for NSTEMI and underwent cardiac catheterization and unsuccessful stenting and he pursued medical therapy, however, since then he has had
intermittent fatigue and exercise intolerance and surgical revascularization was elected-pewter caster was consulted for postoperative ventilator/critical care management 04/06/2025.
Severe CAD/multiple previous stents, recent NSTEMI status post unsuccessful PCI with ongoing chest pain and symptoms and preoperative preserved EF 55%
Status post CABG x 5-ENRIQUEZ-LAD, AO to RSVG to jailed diagonal, AO to RSVG to distal OM, AO to RSVG to RPL B sequential to RPL B, left atrial appendage clip-Dr. Sorenson-04/06/2025
NSTEMI recent
Mild [id number] 11.0
Mild hyperglycemia
Conditions present prior to admission:
Hypertension.
Diabetes.
CAD/stent X 5.
SVT/ablation.
Migraines.
Corey's disease.
Pyloric stenosis/repair 2 weeks old. Skin cancer excision. Left knee arthroscopy.
Plan
Ventilator settings reviewed
FiO2 will be weaned
Minute ventilation will be adjusted
Arterial blood gases will be monitored
Spontaneous breathing trial will be attempted with hopeful extubation after anesthesia/sedation wear off
Pulmonary artery catheter parameters will be followed
Pressors/antihypertensive/inotropes/diuretics will be provided as needed
Monitor chest tube output
Monitor hemoglobin
Monitor platelet count and coags
Transfuse blood product if needed
CT surgery following chest tubes
Cardiology following-correspondence reviewed
Monitor blood sugar
Insulin drip per protocol
Aspiration precautions
VAP prevention protocol
DVT prophylaxis
Early nutrition
Early mobilization
Critical care statement: A total of 55 minutes of critical care time was provided for this patient today. This includes management of ventilator, spontaneous breathing trial, arterial blood gases, pressors, of unstable vital signs, evaluation of
the patient at bedside, reviewing the patient's pertinent medical records including radiographs, microbiology, laboratory evaluations, and discussion with primary team and critical care nursing.
Diagnostic data:
Chest x-ray 03/17/2025-NAD
Chest x-ray 04/02/2025-NAD
CT chest 04/03/2025-severe coronary artery calcifications, otherwise lungs clear
CT head 04/02/2025-chronic microvascular white matter ischemic disease, no evidence of acute large vascular territory transcortical infarct
Echocardiogram 03/17/2025-EF 55-60%, aortic sclerosis
Cardiac catheterization 03/17/2025-severe CAD, unsuccessful attempts to PCI RPL 2
Data Reviewed
-
EKG: Report reviewed by me
Radiology: Report reviewed by me
CT Scan: Image personally visualized and interpreted and Report reviewed by me
Medical Tests (Nuc Med, Echo etc): Report reviewed by me
Old Records: Reviewed
Critical Care Time (in minutes): 55
[2025-04-06 13:39] LABS: ACT+ - POC 765 Seconds (82-134)
[2025-04-06 14:12] LABS: ACT+ - POC 593 Seconds (82-134)
[2025-04-06 15:15] LABS: ACT+ - POC 498 Seconds (82-134)
[2025-04-06 15:25] LABS: B.E. - POC 1.6 mmol/L; Glucose - POC 170 mg/dl (70-99); HCO3 - POC 26 mmol/L (21-28); Hematocrit - POC 23 % PCV (42-52); Hemodilution- POC Yes; Hemoglobin Calculated - POC 7.9; Ionized Calcium - POC 1.15 mmol/L (1.15-1.33); Lactate - POC 1.43 mmol/L (0.36-0.75); O2 Saturation %Calculated-POC 99.9 % (94-98); PCO2 - POC 39 mmHg (35-48); PO2 - POC 346 mmHg (83-108); Potassium - POC 4.5 mmol/L (3.5-5.1); Sodium - POC 141 mmol/L (136-145); Specimen Type - POC Arterial; pH - POC 7.44 (7.35-7.45)
[2025-04-06 15:32] LABS: ACT+ - POC 112 Seconds (82-134)
--- NOTE | 2025-04-06 15:53 | W.PN.CT.SURG ---
CT Surgery Operative Note
-
CARDIAC SURGERY OPERATIVE REPORT
Preoperative Diagnosis: Multivessel Coronary Artery Disease with recent NSTEMI with failed PCI attempt
Postoperative Diagnosis: Same
Procedure(s) Performed:
1. Standard Sternotomy with Aortic and Right Atrial Cannulation
2. Internal Mammary Artery Harvesting, Left
3. Coronary artery bypass grafting x 5 (In situ ENRIQUEZ to LAD, Ao to RSVG to jailed diagonal, Ao to RSVG to distal OM, Ao to RSVG to RPL B sequential to RPL B)
4. Endoscopic vein harvesting of right lower extremity and left lower extremity
5. Transesophageal echocardiography
6. Placement of Temporary Ventricular Pacing Wires
7. Left atrial appendage exclusion [35 mm device]
Date of Surgery: 04/06/2025
Comorbidities:
1. Recent NSTEMI and failed PCI attempt
2. Multivessel coronary disease with previous MIs and multivessel stenting
3. CKD stage III
4. Optic neuritis
5. Hypertension
6. Hyperlipidemia
7. Diabetes mellitus
8. Obese with a BMI of of 28
9. BPH
Attending Surgeon: Jeremiah Sorenson MD, MS
Assistants: Liz Harris PA-C (present and necessary to employment legal assistant, retraction, suction, exposure, suture management, and wound closure under my direction) & Jeremiah Williamson PA-C (endo vein harvest)
Anesthesiology: Kenan Trujillo MD and Gurmeet Trna CRNA
Scrub and Circulating RNs: Tamia Shetty, PHYLLIS, Glenny Magaña RN
Senior Electrical Engineer: Henny Sarkar CCP
Anesthesia: GETA
EBL: per perfusion records
Products: 1 prbc for hemodilution
CPB Time: 100 minutes
Aortic Cross Clamp Time: 87 minutes
Indication(s) for Procedures: This is a 74-year-old male who recently had an NSTEMI with failed PCI attempt. There was difficulty accessing his RPL B branch. Given his multivessel coronary disease and previous stenting with in-stent restenosis,
surgical consultation was sought. After discussion with the family, shared decision making was to pursue multivessel revascularization. Given his elevated [id number] score, I opted to ligate his left atrial appendage to reduce his risk of stroke
should he ever develop A-fib.
Conduit(s) Quality:
ENRIQUEZ -good quality, smaller size but overall excellent flow
RSVG -smaller in size, minimal varicosities and thickening
Target(s) Quality:
RPL B1 and RPL B2 both were sequential together, Transonic flow probe assessment after coming off cardiopulmonary bypass had a mean flow of 25 cc a minute with a pulsatile index of 2.8
OM -smaller size target fill a 1.25 mm probe, mean flow was 22 cc a minute with a pulse index of 6.5
Diagonal�mean flow here was 22 cc a minute however there is difficulty with obtaining a pulsatile index of the vein was quite small and there was poor contact
LAD -excellent sized target, mean flow of 18 cc a minute with a pulse index of 3.6
Implants: 35 mm clip, serial #[id number]
Findings: His left ventricular ejection fraction preoperatively was 60% overall normal wall motion. Following surgery his EF remained the same at 60% initially there was some mild to moderate mitral valve insufficiency however this time he was in a
junctional rhythm and was shortly after cross-clamp removal and reperfusion. After approximately 10 minutes his mitral valve returned back to baseline with a trace to mild degree of insufficiency. There were no new regional wall motion
abnormalities and his EKG was isoelectric. The ENRIQUEZ was harvested in a skeletonized fashion. Following bypass grafting, test dose cardioplegia was given down each distal and confirmed patency and hemostasis. Each distal was probed both proximally
and distally to confirm disease and patency, respectively. He did require 1 unit of PRBCs for hemodilution while on cardiopulmonary bypass. He did not require inotropic support and was in his [place] sinus rhythm after converting from junctional.
No pacing was required. All grafts were tested as described above with Transonic flow probe.
Description of Procedure: The patient was taken to the operating room. Their identity and procedure to be performed were verified and they were positioned supine on the operating table. Induction via general anesthesia with endotracheal intubation
was performed and central venous access and arterial monitoring were inserted. A preoperative transesophageal echocardiogram was performed to assess cardiac function and valvular function. The patient was then prepped and draped from chin to feet in
a sterile fashion. A preoperative time-out was performed with all members of the team present. A midline chest incision was performed along with median sternotomy. Simultaneous endoscopic access of the right and left lower extremity for saphenous
vein harvest was obtained along with administration of an initial 5,000 units of IV heparin. A RulTract sternal retractor was positioned to exposure the left internal mammary bed. The mammary was harvested and found to have good flow. A bulldog
clamp was applied to the distal end of the mammary after dividing it. It was wrapped in a papaverine soaked RayTec and replaced back into the left hemithorax. The RulTract was exchanged for a median sternal retractor. The innominate vein was
isolated. Full heparinization was given (a total of 50,000 units). We created a pericardial well. The aortic cannulation site was chosen where it was soft, pliable, and free of calcium. Cannulation was performed with an arterial cannula in the
ascending aorta and a triple-stage venous cannula through the right atrial appendage. The arterial cannula line had an appropriate bounce and correlating pressures with test dosing. Next, a root vent/antegrade cannula was inserted into the ascending
aorta. The ACT was confirmed to be over 400 and retrograde autologous priming was performed before commencing cardiopulmonary bypass. The pulmonary artery was away from the aorta to facilitate a clamp site. The aortic cross-clamp was
placed after decreasing the flow on the bypass and mean arterial pressure. A total of 1.2L initial dose of antegrade [place]-Nido cardioplegia solution was given and planned for re-dosing every 75 minutes as necessary. There was rapid electro-mechanical
arrest of the heart at 250 cc of cardioplegia. The left ventricle was observed for distention on echocardiogram and manual palpation. Cold slush was placed into a sponge and topically on the RV while we systemically cooled to 34 degrees centigrade.
Once heart was fully arrested is rotated medially and the left atrial appendage was clipped flush the base. I also divided the ligament of Flaco using electrocautery.
I positioned the heart to expose the distal right coronary at the posterior posterior lateral artery. A [place] blade was used to expose the coronary and perform the arteriotomy. Coronary Tamayo scissors were used to enlarge the incision. The
saphenous vein was trimmed and beveled to an appropriate size. The distal anastomosis was performed using 7-0 prolene in an end-to-side fashion. Antegrade cardioplegia was administered into the graft. Appropriate hemostasis and flow were confirmed.
I then performed another coronary arteriotomy at the parallel RPL B branch and then performed a small venotomy in the underbelly of the vein and performed a kgxk-pe-prkz anastomosis with 7-0 Prolene. I then clamped the distal end with the bulldog
clamp and gave count cardioplegia antegrade. It demonstrated also acceptable mean flows and good hemostasis. The bulldog was then removed and the vein graft was sized to the aorta and cut accordingly. A suitable site on the continuation
circumflex/obtuse marginal/left posterolateral branch was chosen. We dissected and prepared the distal target in a similar fashion. An end-to-side anastomosis was created with a 7-0 prolene. Antegrade cardioplegia was administered into the graft.
Appropriate hemostasis and flow were confirmed. The graft was measured for length to the aorta and cut. At this point I also prepared the diagonal vessel at the jailed portion, the stent was palpable in the LAD. A small coronary tree artery was
created and the vein graft was anastomosed in an end-to-side fashion with 7-0 Prolene. Test dosing demonstrated excellent flow and good hemostasis. A suitable target on the mid/distal left anterior descending was identified after the stent. We
dissected and prepared the distal target in a similar fashion. We retrieved the ENRIQUEZ from the chest and created a pericardial opening while being cognizant of the phrenic nerve to facilitate the course of the mammary. The distal end of the mammary
was prepped and beveled to size. We verified orientation and length of the ROSARIO and found brisk flow. An end-to-side anastomosis was created with a 7-0 prolene. We temporarily released the bulldog clamp on the mammary to inspect flow. Perfusion to
the LAD territory was visualized and hemostasis was confirmed. The bull clamp was replaced on the mammary. The heart was filled and the root was distended with antegrade cardioplegia to make final assessment of graft length and orientation. We
created 3 aortotomies using a #11 blade then a 3.6 mm aortic punch. The proximal anastomoses were created in an end-to-side fashion using 7-0 prolene as the vein was quite thin and small. At the the same time, we re-warmed to 36.5 degrees
centigrade. The bulldog clamp was removed from the mammary. Temporary bipolar ventricular pacing wires were placed on the base of the right ventricle. The patient was placed in a Trendelenburg position and flows on bypass were lowered. The aortic
cross clamp was removed and flows were slowly brought back up. All bypass grafts were inspected and were free from kinking or twisting. The distal and proximal anastomoses appeared hemostatic. Once transesophageal echocardiography appeared
satisfactory for de-airing, the flows were temporarily lowered for root vent removal. After verifying acceptable parameters, we initiated weaning from cardiopulmonary bypass. Once we were off cardiopulmonary bypass, the venous cannula was clamped
and removed. A test dose of protamine was administered and the patient was monitored for any adverse reaction before resuming protamine. Once half of the protamine dose was delivered, pump suckers were turned off and the systolic blood pressure was
lowered for aortic decannulation. The aortic cannula was removed and pursestrings were tied down. All cannulation sites were oversewn with a 4-0 prolene. The mammary bed was inspected and hemostasis was confirmed. Once the mediastinum was
hemostatic, 19Fr Jose Eduardo drain was placed in the left pleural cavity and two 24Fr Jose Eduardo drains were placed within the pericardium. The sternum was approximated with 4 #7 single and 3 #8 double stainless steel wires. Fascia was approximated with #1
vicryl suture. The subcutaneous, dermis and epidermis were closed in layers in a running fashion. The skin wound was cleansed and dressed.
All instrument, sponge, and needle counts were confirmed to be correct x 2 at the end of the operation. The patient was transferred to the cardiac intensive care unit in critical but stable condition.
I, Dr. Jeremiah Sorenson, was present, scrubbed for, and performed all critical elements of this procedure.
Jeremiah Sorenson MD, MS
Cardiothoracic Surgeon
[facility]
This operative dictation was created using the [employer] dictation system. Please excuse any grammatical, typographical, or 'sound alike' errors
[2025-04-06 16:16] LABS: B.E. - POC -0.6 mmol/L; Glucose - POC 173 mg/dl (70-99); HCO3 - POC 25 mmol/L (21-28); Hematocrit - POC 26 % PCV (42-52); Hemodilution- POC Yes; Hemoglobin Calculated - POC 8.9; Ionized Calcium - POC 1.44 mmol/L (1.15-1.33); Lactate - POC 1.42 mmol/L (0.36-0.75); O2 Saturation %Calculated-POC 99.9 % (94-98); PCO2 - POC 42 mmHg (35-48); PO2 - POC 296 mmHg (83-108); Potassium - POC 4.1 mmol/L (3.5-5.1); Sodium - POC 143 mmol/L (136-145); Specimen Type - POC Arterial; pH - POC 7.38 (7.35-7.45)
[2025-04-06 16:18] LABS: Glucose - Point of Care 159 mg/dl (70-99)
--- NOTE | 2025-04-06 16:18 | W.PN.CD ---
Today's Communication / Plan
-
-Status-post CABG x 5 today.
-Remains intubated/sedated; on low-dose Levophed.
-Routine postsurgical care as directed by CT Surgery.
-clinical research monitor; will follow.
Impression / Plan
-
74-year-old male with past medical history of ASCVD (LAD 2004, RCA 2006, RCA 2013) on DAPT, hypertension, type 2 diabetes, SVT (s/p ablation [facility] 2016), hypothyroidism, Peyronie's disease, migraines, type 2 diabetes, right eye optic neuritis (tx 2022
steroids), pyloric stenosis (s/p surgery 3 weeks old), presented to the ED complaining of chest pain, fatigue and blurry vision. Patient was hospitalized here from 03/17-03/19/2025 secondary to NSTEMI. He underwent cardiac cath on 03/17 revealing
100% stenosis of R PL 2 within previous stented segments. PCI was unsuccessful and medical management with 48 hours of heparin, DAPT and was discharged on Imdur. He described the episodes of chest pain to be 1-2 out of 10 in pain, short-lived, no
radiating pain, associated with right eye blurry vision, nausea, shortness of breath. Triggered with movement, better with rest.
Primary Head Of Digital: Dr. Alvarez
CAD: Status-post CABG x 5 today.
-Remains intubated/sedated; on low-dose Levophed.
-ASCVD (LAD 2003, RCA 2005, RCA 2013)
-NSTEMI s/p unsuccessful PCI 03/17/2025
-Cardiac catheterization 03/17/2025 revealed 100% stenosis of RPL 2 with the previously stented segment. Unsuccessful attempt.
-TTE on 03/17/2025 revealed LVEF 55 to 60%, no regional wall motion abnormalities, aortic sclerosis, mild MR
-LDL 30 at goal on crestor 40
-Continue aspirin/Plavix.
-Routine postsurgical care as directed by CT Surgery.
-clinical research monitor; will follow.
HTN
-Currently patient's home meds are amlodipine 10 mg daily, carvedilol 25 twice daily, valsartan 160 twice daily, isosorbide mononitrate 30 mg daily
-Monitor closely postop.
History of SVT status post ablation 2017 at [facility] by Dr. Suresh
- On Amio and metoprolol.
Diabetes 2
-Hga1c 6.7 03/17/25
-SSI
-Consider adding farxiga at discharge
HLD
-Cont crestor
-LDL 30 at goal
Physical Exam
Vital Signs/Labs
Vital Signs
Temp Pulse Resp BP Pulse Ox
98 F 79 20 134/76 97
04/06/25 07:48 04/06/25 11:00 04/06/25 07:48 04/06/25 07:46 04/06/25 08:30
04/05/25 04/06/25 04/07/25
06:59 06:59 06:59
Actual Weight 88 kg 88 kg
PT 14.5 Sec (11.4-14.6) 04/06/25 03:07
INR 1.08 04/06/25 03:07
APTT 31.8 Sec (23.4-35.0) 04/06/25 03:07
Physical Exam
Constitutional: Other (Intubated/sedated)
Cardiovascular: Rhythm & rate is regular, Pedal edema is absent, Systolic murmur absent and S1S2 is normal
Respiratory: Other (Intubated, on vent)
GI: Soft
Neuro/Psych: Other (Intubated/sedated)
Other: Skin (Warm, dry)
Data Reviewed
-
Date of Service: April 06, 2025
EKG: Tracing Personally Visualized and interpreted (Sinus rhythm at 83 bpm with first-degree AV block.)
Labs: Labs Reviewed by me
Critical Care Time (in minutes): 37
--- NOTE | 2025-04-06 16:22 | PN.DE.MGMTRT ---
Insulin Management
- -
04/06/2025: Diabetes Management Consult
74 year old male with PMH:ASCVD, HTN CAD s/p stents with MVD, SVT (s/p ablation [facility]UP 2016), hypothyroidism, Peyronie's disease, migraines, right eye optic neuritis (tx 2022 steroids), pyloric stenosis (s/p surgery 3 weeks old) and T2DM. Patient
presented to the ED c/o chest pain, fatigue and blurry vision. Patient was hospitalized here from 03/17-03/19/2025 secondary to NSTEMI. He underwent cardiac cath on 03/17 revealing 100% stenosis of R PL 2 within previous stented segments, PCI was
attempted but was unsuccessful and pt was evaluated for CABG. Patient is currently undergoing CABG.
He was taking Metformin 1000mg BID and Ozempic prior to admission. last A1C was 6.7% on 03/17/25. Cr 1.2, eGFER >60
Patient is not available for interview at this time. He will be initialed on critical care glycemic protocol post-op x48 for glycemic control.
Will followup with pt on Thursday.
Diabetes History
- -
Type of Diabetes: 2
Pre-Admission Diabetes Regimen
04/06/25
03:07
Creatinine 1.2
Insulin Pump Settings
IP Diabetes Regimen
04/05/25 04/05/25 04/06/25
17:02 22:37 03:07
Glucose 118 H
POC Glucose 122 H 161 H
04/06/25 04/06/25
06:04 16:15
Glucose
POC Glucose 127 H 159 H
Meal type: Breakfast
Meal type: Dinner
Amount consumed: 0
Amount consumed: 100%
Patient Education
[2025-04-06 16:25] LABS: Hematocrit 27.4 % (39.0-52.0); Hemoglobin 9.6 g/dL (13.0-18.0); Platelet Count 187 10^3/uL (130-400)
[2025-04-06 16:28] LABS: B.E. -2.5 mmol/L; HCO3 23.2 mmol/L (21-28); O2 Saturation % 99.6 % (94-98); PCO2 43 mmHg (35-48); PO2 121 mmHg (83-108); Potassium 4.1 mMOL/L (3.5-5.1); Sodium 138 mMOL/L (136-145)
[2025-04-06] MEDS: ANCEF 10 IV ×2 (16:33)
[2025-04-06] MEDS: TYLENOL PO ×2 (16:33→23:25)
[2025-04-06] MEDS: NSS 500 IV (16:34)
[2025-04-06] MEDS: NEURONTIN PO ×2 (16:34→23:25)
[2025-04-06] MEDS: LR 250 ML IV (16:34)
[2025-04-06] MEDS: PACERONE PO (16:34)
[2025-04-06] MEDS: NOVOLOG FLEXPEN SC (16:34)
[2025-04-06 16:36] LABS: INR 1.32; PT 16.9 Sec (11.4-14.6)
[2025-04-06 16:37] LABS: APTT 27.4 Sec (23.4-35.0)
[2025-04-06 16:40] LABS: Blood Urea Nitrogen 22 mg/dl (9-20); Estimated Creatinine Clearance 61 ml/min; Glucose 150 mg/dl (70-99); Magnesium 2.7 mg/dl (1.6-2.3)
[2025-04-06] MEDS: DILAUDID 0.5 MG IV (17:22)
[2025-04-06 17:31] LABS: Glucose - Point of Care 178 mg/dl (70-99)
--- NOTE | 2025-04-06 18:00 | PTCARENOTE ---
Patient received from [facility] at 1630; Sedated and intubated; NS w/ 1st degree on monitor; VSS; R DP normal L DP doppler and radial pulses present; Lungs diminished at bases; ETT size 8 positioned and secured at 24 cm @ lip; Ventilator settings SIMV
12/550/5/FiO2 40%; CTx3 to -20 cm wall suction draining bloody drainage - no air leak, tidaling, or crepitus noted; Hypoactive BS; Hager catheter in place draining clear, yellow urine; Sternal incision glued,approximated, and [address]UV[address] [employer] LIAISON - CDI, right groin
puncture glued, approximated, and CDI, RLE & LLE incision wrapped in TERE wrap - CDI; L radial A-line in place, [place] in RIJ Cordis - all lines zeroed and leveled; PIVx 1; Levo/insulin/precedex infusing - see nursing flowsheets for further details;
see nursing documentation for further details.
[2025-04-06 18:28] LABS: Glucose - Point of Care 135 mg/dl (70-99)
[2025-04-06 19:14] LABS: Glucose - Point of Care 131 mg/dl (70-99)
[2025-04-06] MEDS: SENOKOT-S PO (19:44)
[2025-04-06 20:04] LABS: Glucose - Point of Care 114 mg/dl (70-99)
[2025-04-06] MEDS: ZOFRAN 4 MG IV (20:18)
--- NOTE | 2025-04-06 20:30 | PTCARENOTE ---
Patient received resting in bed. Drowsy. Patient's at bedside. Patient with ETT/Ventilator - SIMV settings: Rate 12 TV 550 PS 5 PEEP 5 FiO2 40%. SpO2 99%. Patient easily arouses to verbal commands. Patient able to nod head appropriately
to simple verbal commands. Pupils size 3 with equal and brisk reaction. Patient able to move all extremities without difficulty. Lungs diminished at bases. No adventitious breath sounds. Three chest tubes - Mediastinal x2 and Left Pleural -
Intact and patent - Red drainage - Outputs as documented. Chest tube dressing intact. Sinus Rhythm with First Degree AV Block. Heart rate 90's. Blood pressure 102/72 (82) cuff. 102/63 (76) left radial arterial line. VVI 50/19/2.0. Levophed
off. Patient with no c/o chest pain, pressure or discomfort. Abdomen soft, round. Hypoactive bowel sounds. No BM. Nausea - Zofran 4mg IV given with positive relief provided. Hager catheter - Temperature sensing - Yellow urine - Outputs as
documented. Positive radial pulses. Bilateral Posterior tibial and Dorsalis pedis pulses - Positive via Doppler. Trace generalized edema. Right [place]. Cord[place] with [place] catheter. CVP 12. 4hr post Hgb 10.0 Hct 28.3 Plt 216. Sternal incision
intact - Surgical adhesive - Open to air. Left groin puncture site intact. Right and Left lower extremities incisions intact - [place] Bg Wrap intact. Insulin gtt - Glycemic Protocol. Patient with no c/o back or flank pain. Assessment as
documented.
[2025-04-06 20:38] LABS: Hematocrit 28.3 % (39.0-52.0); Hemoglobin 10.0 g/dL (13.0-18.0); Platelet Count 216 10^3/uL (130-400)
[2025-04-06 21:08] LABS: Glucose - Point of Care 119 mg/dl (70-99)
[2025-04-06 22:53] LABS: B.E. - POC 1.5 mmol/L; Blood Urea Nitrogen - POC 21 mg/dl (3-120); Chloride - POC 110 mmol/L (96-111); Creatinine - POC 1.04 mg/dl (0.3-1.0); Glucose - POC 108 mg/dl (70-99); HCO3 - POC 26 mmol/L (21-28); Hematocrit - POC 29 % PCV (42-52); Hemodilution- POC No; Hemoglobin Calculated - POC 9.9; Ionized Calcium - POC 1.28 mmol/L (1.15-1.33); Lactate - POC 0.86 mmol/L (0.36-0.75); O2 Saturation %Calculated-POC 98.0 % (94-98); PCO2 - POC 41 mmHg (35-48); PO2 - POC 103 mmHg (83-108); Potassium - POC 3.7 mmol/L (3.5-5.1); Sodium - POC 143 mmol/L (136-145); Specimen Type - POC Arterial; pH - POC 7.42 (7.35-7.45)
[2025-04-06] MEDS: KCL 50 IV (22:58)
[2025-04-06] MEDS: DILAUDID 0.25 MG IV (23:17)
[2025-04-06] MEDS: LOW STRENGTH ASPIRIN 81 MG PO (23:17)
[2025-04-06] MEDS: ANCEF 5 IV (23:17)
[2025-04-06 23:34] LABS: Glucose - Point of Care 112 mg/dl (70-99)
[2025-04-06] MEDS: PACERONE 200 MG PO (23:41)
[2025-04-06] MEDS: ELAVIL 10 MG PO (23:41)
[2025-04-06] MEDS: ZETIA 10 MG PO (23:42)
[2025-04-07] VITALS (41 sets, daily range): BP systolic 80–130; BP diastolic 50–84; BMI 29.7
[2025-04-07] MEDS: KCL 50 IV (00:08)
[2025-04-07] MEDS: DILAUDID 0.5 MG IV (00:29)
--- NOTE | 2025-04-07 00:45 | PTCARENOTE ---
Patient awake and alert. CPAP wean started at 2210. ABG completed. K 3.7 - KCL 20 mEq/50 ml over 1hr x2. 2305 - Patient extubated without difficulty. Voice audible, slightly raspy. Patient with no difficulty swallowing. O2 at 6L via NC. SpO2
99%. Patient tolerating ice chips and sips of water. Aspirin 81 mg PO given without difficulty. IV Dilaudid for pain management. Patient A+A+Ox3. No neurological deficits noted. Patient resting in bed watching television.
Assessment/Interventions as documented.
[2025-04-07 01:03] LABS: Glucose - Point of Care 106 mg/dl (70-99)
[2025-04-07] MEDS: DILAUDID 0.25 MG IV (02:27)
[2025-04-07] MEDS: ROXICODONE 5 MG PO ×5 (02:27→22:28)
[2025-04-07 03:07] LABS: Glucose - Point of Care 109 mg/dl (70-99)
--- NOTE | 2025-04-07 03:18 | W.PN.CT ---
Today's Communication / Plan
-
pod#1
- extubated 2300
- DC pleural chest tube
- DC [place], A-line
- continue ASA, Plavix, Crestor, lopressor>may chnage to home Coreg
Assessment / Plan
-
POD #1 s/p CABG x 5 (In situ ENRIQUEZ to LAD, Ao to RSVG to jailed diagonal, Ao to RSVG to distal OM, Ao to RSVG to RPL B sequential to RPL B), Left atrial appendage exclusion [35 mm device]
PMH:
- CAD w/history of 5 stents
- NSTEMI/in-stent restenosis s/p unsuccessful PCI 03/17/2025
- Hypertension
- DM-II (A1c 6.7)
- Hypothyroidism
- Migraines
- Peyronie's Disease
- Pyloric Stenosis s/p Pyloric Stenosis Repair (2 weeks old)
- R Eye nevus removal (2017)
- R eye optic neuritis
- SVT Ablation (2017)
- Skin Cancer Excision
- Left Knee Arthroscopy
- Acute post-op blood loss anemia-expected
Discussed patient care with: Nursing and Care Team
Subjective
Procedure
CABG x 5 (In situ ENRIQUEZ to LAD, Ao to RSVG to jailed diagonal, Ao to RSVG to distal OM, Ao to RSVG to RPL B sequential to RPL B), Left atrial appendage exclusion [35 mm device] by Dr. Sorenson 04/06/25
-
Date of Service: April 07, 2025
Objective Data
-
PT 16.9 Sec (11.4-14.6) H 04/06/25 16:16
INR 1.32 04/06/25 16:16
APTT 27.4 Sec (23.4-35.0) 04/06/25 16:16
Vital Signs
Vital Signs
Temp Pulse Resp BP Pulse Ox
99.1 F 104 16 125/80 96
04/07/25 03:00 04/07/25 03:00 04/07/25 03:00 04/07/25 03:00 04/07/25 03:00
CT Intake/Output/Weight
04/06/25 04/06/25 04/07/25
06:59 18:59 06:59
Intake Total 360 / 720 200.0 / 597.5 397.5 / 597.5
Output Total 285 / 900 615 / 900
Balance 360 / 720 -85.0 / -302.5 -217.5 / -302.5
SaO2: 96
Physical Exam
-
General: AOx3
Cardiovascular: Regular rate & rhythm, No Murmurs, No Rub and No Gallop
Respiratory: Clear and Equal
Sternum: Stable
Incision: Clean, Dry and Intact
Extremities: No Edema and No Erythema
Data Reviewed
-
Lab Results: Results Reviewed
Medications: Active Meds Reviewed
Chest X-Ray: Image Reviewed
ECG: Image Reviewed
[2025-04-07 03:32] LABS: Hematocrit 26.3 % (39.0-52.0); Hemoglobin 9.3 g/dL (13.0-18.0); Mean Corp Hgb Conc. 35.4 g/dL (33.0-37.0); Mean Corpuscular Volume 85.1 fL (80.0-94.0); Platelet Count 201 10^3/uL (130-400); Red Cell Dist. Width 13.1 % (11.5-14.5)
[2025-04-07 03:55] LABS: Blood Urea Nitrogen 22 mg/dl (9-20); Calcium 8.5 mg/dl (8.4-10.2); Carbon Dioxide 21 mmol/L (22-30); Chloride 113 mmol/L (98-107); Estimated Creatinine Clearance 61 ml/min; Glucose 112 mg/dl (70-99); Magnesium 2.2 mg/dl (1.6-2.3); Potassium 4.8 mmol/L (3.5-5.1); Sodium 139 mmol/L (135-145); eGFR > 60.00
[2025-04-07] MEDS: NOVOLIN R INSULIN INFUSION 100 IV (04:00)
[2025-04-07] MEDS: OFIRMEV 100 IV (04:13)
[2025-04-07] MEDS: TORADOL 15 MG IV (04:20)
[2025-04-07] MEDS: LOPRESSOR 12.5 MG PO (04:44)
[2025-04-07 05:02] LABS: Glucose - Point of Care 124 mg/dl (70-99)
[2025-04-07] MEDS: SYNTHROID 125 MCG PO (06:30)
[2025-04-07] MEDS: TYLENOL PO (06:30)
--- NOTE | 2025-04-07 06:30 | PTCARENOTE ---
Patient A+A+Ox3. No neurological deficits noted. AM lab work collected and sent. EKG completed. Portable CXR completed. CHG wipes. Hager catheter care completed. Patient de-lined. OOB to chair. Standing scale weight 91.2 kg.
Assessment/Interventions as documented.
[2025-04-07] MEDS: ANCEF 5 IV ×2 (06:31→14:15)
[2025-04-07 06:49] LABS: Glucose - Point of Care 124 mg/dl (70-99)
--- NOTE | 2025-04-07 07:46 | W.PN.INTV ---
Today's Communication / Plan
Recommendations
Tolerated extubation
Begin to deline
Increase activity
Insulin drip continues with A1c 6.7%
Assessment
-
74-year-old non-smoking male with a history of hypertension, diabetes, and CAD recently hospitalized for NSTEMI and underwent cardiac catheterization and unsuccessful stenting and he pursued medical therapy, however, since then he has had
intermittent fatigue and exercise intolerance and surgical revascularization was elected-automatic coin machine mechanic was consulted for postoperative ventilator/critical care management 04/06/2025.
Severe CAD/multiple previous stents, recent NSTEMI status post unsuccessful PCI with ongoing chest pain and symptoms and preoperative preserved EF 55%
Status post CABG x 5-ENRIQUEZ-LAD, AO to RSVG to jailed diagonal, AO to RSVG to distal OM, AO to RSVG to RPL B sequential to RPL B, left atrial appendage clip-Dr. Sorenson-04/06/2025
NSTEMI recent
Mild roxvxc-ligiqnhnal-gqtoqnqjdj 11.0
Mild hyperglycemia
Conditions present prior to admission:
Hypertension.
Diabetes.
CAD/stent X 5.
SVT/ablation.
Migraines.
Corey's disease.
Pyloric stenosis/repair 2 weeks old. Skin cancer excision. Left knee arthroscopy.
Plan
Tolerated extubation
Wean FiO2
Encourage incentive spirometry
Increase activity
Aspiration precautions
Pressors have been weaned
Discontinue arterial line and PA line
Continue to monitor chest tube output-pleural chest tube will be discontinued
Follow hemoglobin
Continue to follow platelet count and coags
Transfuse blood product as needed
CT surgery following chest tubes as well
Follow blood sugar
Insulin supplementation continues as needed-A1c with 6.7%
Early nutrition
Early mobilization
DVT prophylaxis
Patient will remain in ICU for insulin drip-automatic coin machine mechanic will continue to follow
Critical care statement: A total of 34 minutes of critical care time was provided for this patient today. This includes management of unstable vital signs, evaluation of the patient at bedside, reviewing the patient's pertinent medical records
including radiographs, microbiology, laboratory evaluations, and discussion with primary team, consultants, pharmacy, nutrition, physical therapy, case management, charge nurse, critical care nursing, and respiratory therapy.
Diagnostic data:
Chest x-ray 03/17/2025-NAD
Chest x-ray 04/02/2025-NAD
CT chest 04/03/2025-severe coronary artery calcifications, otherwise lungs clear
CT head 04/02/2025-chronic microvascular white matter ischemic disease, no evidence of acute large vascular territory transcortical infarct
Echocardiogram 03/17/2025-EF 55-60%, aortic sclerosis
Cardiac catheterization 03/17/2025-severe CAD, unsuccessful attempts to PCI RPL 2
Subjective Dataa
Subjective Data
Date of Service:
Date of Service: April 07, 2025
Chief Complaint: Coat Room Attendant Follow Up and Pulmonary Follow Up
Subjective:
Tolerated extubation, no complaints of shortness of breath, pain controlled, out of bed,
Review of Systems
General: Other ( Per HPI)
Objective Data
Data Reviewed
Vital Signs / I&O / Oxygen:
Vital Signs
Temp Pulse Resp BP Pulse Ox
99 F 100 16 126/79 97
04/07/25 05:00 04/07/25 06:00 04/07/25 06:00 04/07/25 06:00 04/07/25 06:00
Intake and Output
04/06/25 04/07/25 04/08/25
06:59 06:59 06:59
Intake Total 720 / 720 887.3 / 887.3
Output Total 1160 / 1160
Balance 720 / 720 -272.7 / -272.7
SaO2 [CPAP] 99
SaO2 [SIMV] 99
SaO2 97
Nasal Cannula flow liters per 3
minute
Physical Exam
General: Respiratory Distress (n) and Comfortable
HEENT: Normocephalic, Anicteric and Moist Mucous Membranes
Cardiovascular: Regular Rhythm
Respiratory: Crackles, Rhonchi (n), Non-Labored Respirations, Accessory Resp Muscle Use (n), Stridor (n) and Chest Tube
GI: Soft, Non Distended and Non Tender
Neurology: Awake, Alert and No Motor Deficits
Skin: Warm, Good Color, Cyanosis (n) and Jaundice (n)
Labs/Micro/Reports
Lab Data
04/07/25 03:18
04/07/25 03:18
Laboratory Results
04/06/25
16:16
PT 16.9 H
INR 1.32
APTT 27.4
pH 7.34 L
pCO2 43
pO2 121 H
HCO3 23.2
O2 Delivery Level
--- NOTE | 2025-04-07 08:28 | W.PN.ANS.POP ---
Anesthesia Post Operative
- Anesthesia Post Op Note
Vital Signs Stable-See Nursing Note: Yes
Airway Patent: Yes
Adequate Pain Control: Yes
Change in Mental Status: No
Current Postoperative Nausea & Vomiting: No
Anesthesia Complications: No
General Anesthetic Recall: No
Unplanned Admission: No
Post Op Hydration Adequate: Yes
--- NOTE | 2025-04-07 08:30 | PTCARENOTE ---
Assumed care of patient at 0700. Pt is awake, alert, and oriented. Pt remains ST HR 106. BP 101/71 MAP 82. Pulse oximetry 97% on 2L nasal cannula. Encouraged use of IS. Mediastinal chest tubes x2 and left pleural chest tube in place, no sign of air
leak or crepitus, drainage serosanguineous. Pt tolerating clear liquid diet, no complaints of nausea. Hager catheter in place, draining yellow urine. Hager care completed. Midsternal incision approximated and DANILO. Right and left leg incisions with
usha wrap in place. Right IJ cordis intact. Remains on insulin gtt per glycemic protocol.
[2025-04-07] MEDS: NOVOLOG FLEXPEN 4 UNITS SC ×3 (08:48→18:44)
[2025-04-07 08:50] LABS: Glucose - Point of Care 108 mg/dl (70-99)
[2025-04-07] MEDS: VITAMIN D3 (cholecalciferol) 50 MCG PO (08:53)
[2025-04-07] MEDS: PROTONIX 40 MG PO (08:53)
[2025-04-07] MEDS: PLAVIX 75 MG PO (08:53)
[2025-04-07] MEDS: FLOMAX 0.8 MG PO (08:53)
[2025-04-07] MEDS: PROSCAR 5 MG PO (08:54)
[2025-04-07] MEDS: BACTROBAN 2% OINTMENT 1 APPLIC NASAL ×2 (08:54→19:59)
[2025-04-07] MEDS: LIDOCAINE 4% PATCH 1 PATCH TOPICAL (08:54)
[2025-04-07] MEDS: LOW STRENGTH ASPIRIN 81 MG PO (08:54)
[2025-04-07] MEDS: PACERONE 200 MG PO ×2 (08:54→16:15)
[2025-04-07] MEDS: CRESTOR 40 MG PO (08:54)
[2025-04-07] MEDS: SENOKOT-S 1 TABLET PO ×2 (08:54→20:00)
[2025-04-07] MEDS: NEURONTIN 100 MG PO ×3 (08:54→22:31)
[2025-04-07] MEDS: MAGNESIUM OXIDE 500 MG PO ×2 (08:54→20:00)
[2025-04-07] MEDS: FLEXERIL 5 MG PO (10:33)
[2025-04-07 10:38] LABS: Glucose - Point of Care 130 mg/dl (70-99)
--- NOTE | 2025-04-07 11:30 | PTCARENOTE ---
Pt SR HR 98. BP 100/56 MAP 70. Pulse oximetry 94% on room air. Left pleural chest tube d/c'd per order. Hager catheter d/c'd. PRN Roxicodone and Flexeril administered for pain. Pt remains on insulin gtt per glycemic protocol.
[2025-04-07 13:43] LABS: Glucose - Point of Care 85 mg/dl (70-99)
[2025-04-07] MEDS: TYLENOL 1000 MG PO ×2 (14:14→22:31)
[2025-04-07] MEDS: NSS IV (14:15)
[2025-04-07] MEDS: FERRLECIT 110 MG IV (14:15)
[2025-04-07] MEDS: LR 500 IV ×2 (15:32→17:56)
[2025-04-07 15:38] LABS: Glucose - Point of Care 135 mg/dl (70-99)
--- NOTE | 2025-04-07 16:00 | PTCARENOTE ---
Pt remains ST with 90's. HR with BP 83/[address] TERESA, Lee, made aware 500mL LR bolus given per order.
[2025-04-07 17:22] LABS: Glucose - Point of Care 176 mg/dl (70-99)
--- NOTE | 2025-04-07 18:00 | PTCARENOTE ---
Pt with no urine output, bladder scanned for 80mL. BP remains low 88/[address] TERESA, Lee aware 500mL LR bolus administered.
[2025-04-07 18:44] LABS: Glucose - Point of Care 173 mg/dl (70-99)
[2025-04-07] MEDS: SODIUM BICARBONATE 50 MEQ IV (19:58)
[2025-04-07] MEDS: CALCIUM GLUCONATE 130 MG IV (19:59)
[2025-04-07] MEDS: REMOVE LIDOCAINE PATCH 1 PATCH REMOVE (20:00)
--- NOTE | 2025-04-07 20:30 | PTCARENOTE ---
Patient received OOB in chair. Patient assisted to bed with assist x2. c/o dizziness. Blood pressure 97/58 (71). Patient A+A+Ox3. No neurological changes noted. O2 at 3L via NC. SpO2 92%. Two Mediastinal chest tubes - Intact and patent - 10
ml red drainage - No air leak. Chest tube dressing intact. Sinus Rhythm - Sinus Tachycardia. Heart rate 90-100's. VVI 50/19/2.0 No pacer spikes noted. Patient with no c/o chest pain, pressure or discomfort. Normoactive bowel sounds. No BM.
No c/o nausea. No vomiting. No urge to void at this time. Patient with no c/o back or flank pain. Sternal incision intact - Surgical adhesive - Open to air. Right and left puncture sites intact. Right and left SVG sites intact. Positive,
palpable pulses. Generalized edema. Right I.J. Cordis. Insulin gtt. Patient given one AMP Sodium Bicarbonate 50 mEq IV and IV Calcium Gluconate 3,000mg/130ml administered per PA order. Assessment as documented.
[2025-04-07 21:19] LABS: Glucose - Point of Care 181 mg/dl (70-99)
[2025-04-07 22:14] LABS: Glucose - Point of Care 187 mg/dl (70-99)
[2025-04-07] MEDS: PACERONE 400 MG PO (22:28)
[2025-04-07] MEDS: ELAVIL 30 MG PO (22:29)
[2025-04-07] MEDS: REFRESH EYE DROPS (PF) 1 DROPS OPHTH (22:31)
[2025-04-07] MEDS: ZETIA 10 MG PO (22:31)
[2025-04-07] MEDS: VALIUM 5 MG PO (22:52)
[2025-04-07 23:15] LABS: Glucose - Point of Care 173 mg/dl (70-99)
[2025-04-08] VITALS (25 sets, daily range): BP systolic 93–120; BP diastolic 53–82; PULSE 96; O2SAT 94; BMI 31.2
--- NOTE | 2025-04-08 | PTCARENOTE ---
Patient voided 50 ml antonio urine. Bladder scanned for 341 ml. Patient then voided 200 ml antonio urine. Patient resting in bed watching television. Dozing intermittently. Roxicodone 5 mg PO for pain management. Valium 5mg PO for sleep.
Artificial Tears given for c/o dry eyes. Assessment as documented.
[2025-04-08 00:37] LABS: Glucose - Point of Care 105 mg/dl (70-99)
[2025-04-08 01:06] LABS: Glucose - Point of Care 86 mg/dl (70-99)
[2025-04-08 02:20] LABS: Glucose - Point of Care 81 mg/dl (70-99)
[2025-04-08 03:17] LABS: Glucose - Point of Care 87 mg/dl (70-99)
[2025-04-08] MEDS: ROXICODONE 5 MG PO ×3 (03:23→13:57)
--- NOTE | 2025-04-08 04:11 | W.PN.CT ---
Today's Communication / Plan
-
Plan:
-No major issues overnight. Hemodynamically and neurologically intact
-On insulin gtt, will transition off per protocol today
-Tele phase when off insulin gtt, Diabetes education/management is following
-Had some dizziness/orthostatic hypotension when OOB yesterday
-Having some urinary retention post dunbar removal, has hx of Peyronie's disease and BPH, on Flomax and Proscar
-BB held last night d/t low BP, noted to be tachycardic postop, increased Amiodarone to 400 mg TID since BP not able to tolerate BB yesterday
-Cont. current meds (ASA, Plavix, Amiodarone, Synthroid, Crestor, Zetia, Finasteride, Flomax, Toprol XL if BP permits)
-Will d/c temporary v-wires (pull)
-Consider d/c of remaining chest tubes: 2meds 60/255
-H/H 7.7/22.4 today, down from 9.3/26.3 yesterday, likely hemodilutional from total of 1L LR bolus yesterday, monitor
-Monitor PVR, not completely emptying bladder, u/o since dunbar removal 400 mL
-Maintain cordis another day
-Encourage use of IS
-Wean off of O2
-OOB into chair
-Ambulate
Assessment / Plan
-
-S/p CABG x 5 (In situ ENRIQUEZ to LAD, Ao to RSVG to jailed diagonal, Ao to RSVG to distal OM, Ao to RSVG to RPL B sequential to RPL B), Left atrial appendage exclusion [35 mm device], by Dr. Sorenson, 04/06/25, pod#2
PMH:
- CAD w/history of 5 stents
- NSTEMI/in-stent restenosis s/p unsuccessful PCI 03/17/2025
- Hypertension
- DM-II (A1c 6.7)
- Hypothyroidism
- Migraines
- Peyronie's Disease
- BPH (on Flomax and Finasteride @ home)
- Pyloric Stenosis s/p Pyloric Stenosis Repair (2 weeks old)
- R eye optic neuritis
- S/P R Eye nevus removal (2017)
- S/P SVT Ablation (2017)
- S/P Skin Cancer Excision
- S/P Left Knee Arthroscopy
- Acute post-op blood loss anemia (transfused 1u PRBC)
- Acute postop atelectasis
- Acute postop hypovolemia with subsequent hypervolemia
- Acute postop urinary retention
- Acute postop orthostasis
- Acute postop tachycardia
Discussed patient care with: Cardiology, Nursing, Respiratory Therapy, Pharmacy and Care Team
Subjective
Procedure
S/p CABG x 5 (In situ ENRIQUEZ to LAD, Ao to RSVG to jailed diagonal, Ao to RSVG to distal OM, Ao to RSVG to RPL B sequential to RPL B), Left atrial appendage exclusion [35 mm device], by Dr. Sorenson, 04/06/25
-
Date of Service: April 08, 2025
Pt c/o incisional pain, otherwise feels well
Objective Data
-
PT 16.9 Sec (11.4-14.6) H 04/06/25 16:16
INR 1.32 04/06/25 16:16
APTT 27.4 Sec (23.4-35.0) 04/06/25 16:16
Vital Signs
Vital Signs
Temp Pulse Resp BP Pulse Ox
98.6 F 97 16 109/54 95
04/07/25 22:00 04/08/25 03:00 04/07/25 22:00 04/08/25 03:00 04/07/25 22:[address]
CT Intake/Output/Weight
04/07/25 04/07/25 04/08/25
06:59 18:59 06:59
Intake Total 687.3 / 887.3 1136.6 / 1837.7 701.1 / 1837.7
Output Total 875 / 1160 270 / 560 290 / 560
Balance -187.7 / -272.7 866.6 / 1277.7 411.1 / 1277.7
SaO2: 95 (3L)
Physical Exam
-
General: Awake, Oriented and AOx3
Cardiovascular: Regular rate & rhythm, Rub (likely friction rub from chest tubes) and No Gallop
Respiratory: Decreased Breath Sounds (at bases, otherwise clear)
Sternum: Stable
Incision: Clean, Dry, Intact and Dressing Intact
Extremities: Other (+trace edema)
Data Reviewed
-
Lab Results: Results Reviewed
Medications: Active Meds Reviewed
Chest X-Ray: Report Reviewed and Image Reviewed
ECG: Report Reviewed and Image Reviewed
--- NOTE | 2025-04-08 05:00 | PTCARENOTE ---
Patient A+A+Ox3. No neurological deficits noted. No c/o headache, dizziness or lightheadedness. Resting in bed. Voiding. Assessment/Interventions as documented.
[2025-04-08 05:15] LABS: Glucose - Point of Care 105 mg/dl (70-99)
[2025-04-08] MEDS: NSS 500 IV (05:35)
[2025-04-08] MEDS: TYLENOL 1000 MG PO ×3 (05:36→21:58)
[2025-04-08] MEDS: SYNTHROID 125 MCG PO (05:36)
[2025-04-08 06:22] LABS: Hematocrit 22.4 % (39.0-52.0); Hemoglobin 7.7 g/dL (13.0-18.0); Mean Corp Hgb Conc. 34.4 g/dL (33.0-37.0); Mean Corpuscular Volume 86.8 fL (80.0-94.0); Platelet Count 156 10^3/uL (130-400); Red Cell Dist. Width 13.3 % (11.5-14.5)
[2025-04-08 06:24] LABS: Blood Urea Nitrogen 27 mg/dl (9-20); Calcium 8.5 mg/dl (8.4-10.2); Carbon Dioxide 23 mmol/L (22-30); Chloride 105 mmol/L (98-107); Estimated Creatinine Clearance 51 ml/min; Glucose 111 mg/dl (70-99); Magnesium 2.1 mg/dl (1.6-2.3); Potassium 4.3 mmol/L (3.5-5.1); Sodium 133 mmol/L (135-145); eGFR 58.37
[2025-04-08] MEDS: CALCIUM GLUCONATE 100 IV (06:40)
[2025-04-08] MEDS: NOVOLIN R INSULIN INFUSION 100 IV (06:45)
[2025-04-08 06:53] LABS: Glucose - Point of Care 117 mg/dl (70-99)
--- NOTE | 2025-04-08 07:49 | W.PN.INTV ---
Today's Communication / Plan
Recommendations
Wean oxygen
Incentive spirometry
Increase activity
Monitor blood pressure
Discontinue last chest tube
Transition off insulin drip-audiology technician will sign off-please call pulmonary if respiratory issues arise
Assessment
-
74-year-old non-smoking male with a history of hypertension, diabetes, and CAD recently hospitalized for NSTEMI and underwent cardiac catheterization and unsuccessful stenting and he pursued medical therapy, however, since then he has had
intermittent fatigue and exercise intolerance and surgical revascularization was elected-audiology technician was consulted for postoperative ventilator/critical care management 04/06/2025.
Severe CAD/multiple previous stents, recent NSTEMI status post unsuccessful PCI with ongoing chest pain and symptoms and preoperative preserved EF 55%
Status post CABG x 5-ENRIQUEZ-LAD, AO to RSVG to jailed diagonal, AO to RSVG to distal OM, AO to RSVG to RPL B sequential to RPL B, left atrial appendage clip-Dr. Sorenson-04/06/2025
NSTEMI recent
Mild ouelzv-gzsiqgvaup-axconicdjs 11.0
Mild hyperglycemia
Conditions present prior to admission:
Hypertension.
Diabetes.
CAD/stent X 5.
SVT/ablation.
Migraines.
Corey's disease.
Pyloric stenosis/repair 2 weeks old. Skin cancer excision. Left knee arthroscopy.
Plan
Respiratory status stable
Hemodynamically blood pressure mildly low minimally symptomatic when out of bed
Encourage incentive spirometry
Increase activity
Aspiration precautions
Lines have been discontinued
Continue to monitor chest tube output- chest tubes will be removed
Follow hemoglobin
Continue to follow platelet count and coags
Transfuse blood product as needed
CT surgery following chest tubes as well
Follow blood sugar
Insulin supplementation continues as needed-A1c with 6.7%-likely transitioned off insulin drip today
Early nutrition
Early mobilization
DVT prophylaxis
When patient comes off insulin drip-audiology technician will sign
Reviewed with critical care nursing and at the bedside
Diagnostic data:
Chest x-ray 03/17/2025-NAD
Chest x-ray 04/02/2025-NAD
CT chest 04/03/2025-severe coronary artery calcifications, otherwise lungs clear
CT head 04/02/2025-chronic microvascular white matter ischemic disease, no evidence of acute large vascular territory transcortical infarct
Echocardiogram 03/17/2025-EF 55-60%, aortic sclerosis
Cardiac catheterization 03/17/2025-severe CAD, unsuccessful attempts to PCI RPL 2
Subjective Dataa
Subjective Data
Date of Service:
Date of Service: April 08, 2025
Chief Complaint: Hat Block Maker Follow Up and Pulmonary Follow Up
Subjective:
Some mild dizziness when out of bed, otherwise no complaints of shortness of breath, pain is controlled, no abdominal pain
Review of Systems
General: Other ( Per HPI)
Objective Data
Data Reviewed
Vital Signs / I&O / Oxygen:
Vital Signs
Temp Pulse Resp BP Pulse Ox
98.7 F 97 16 105/60 95
04/08/25 05:00 04/08/25 05:00 04/08/25 05:00 04/08/25 05:00 04/08/25 05:00
Intake and Output
04/07/25 04/08/25 04/09/25
06:59 06:59 06:59
Intake Total 887.3 / 887.3 1974.1 / 1987.6
Output Total 1160 / 1160 730 / 730
Balance -272.7 / -272.7 1244.1 / 1257.6
SaO2 [CPAP] 99
SaO2 [SIMV] 99
SaO2 95
Nasal Cannula flow liters per 2
minute
Physical Exam
General: Respiratory Distress (n) and Comfortable
HEENT: Normocephalic, Anicteric and Moist Mucous Membranes
Cardiovascular: Regular Rhythm
Respiratory: Crackles, Rhonchi (n), Non-Labored Respirations, Accessory Resp Muscle Use (n), Stridor (n) and Chest Tube
GI: Soft, Non Distended and Non Tender
Neurology: Awake, Alert and No Motor Deficits
Skin: Warm, Good Color, Cyanosis (n) and Jaundice (n)
Labs/Micro/Reports
Lab Data
04/08/25 05:48
04/08/25 05:48
--- NOTE | 2025-04-08 08:00 | W.PN.UPDATE ---
Update Note
Progress Note Update
V wires removed without difficulties. Bedrest x 1 hour. RN at the bedside for the procedure.
[2025-04-08 08:16] LABS: Glucose - Point of Care 93 mg/dl (70-99)
[2025-04-08] MEDS: NOVOLOG FLEXPEN 4 UNITS SC ×2 (08:19→13:11)
[2025-04-08] MEDS: LIDOCAINE 4% PATCH 1 PATCH TOPICAL (09:00)
[2025-04-08] MEDS: PROTONIX 40 MG PO (09:00)
[2025-04-08] MEDS: SENOKOT-S 1 TABLET PO ×2 (09:00→20:44)
[2025-04-08] MEDS: PROSCAR 5 MG PO (09:00)
[2025-04-08] MEDS: TOPROL XL 12.5 MG PO ×2 (09:00→20:47)
[2025-04-08] MEDS: PACERONE 400 MG PO ×3 (09:00→21:59)
[2025-04-08] MEDS: VITAMIN D3 (cholecalciferol) 50 MCG PO (09:00)
[2025-04-08] MEDS: CRESTOR 40 MG PO (09:00)
[2025-04-08] MEDS: NEURONTIN 100 MG PO ×3 (09:00→21:58)
[2025-04-08] MEDS: FLOMAX 0.8 MG PO (09:00)
[2025-04-08] MEDS: MAGNESIUM OXIDE 500 MG PO ×2 (09:00→20:44)
--- NOTE | 2025-04-08 09:00 | PTCARENOTE ---
Assumed care of patient at 0700. Pt is awake, alert, and oriented. Pt with complaints of pain, PRN Roxicodone administered. Pt remains SR with HR 95. BP 104/57 MAP 69. Epicardial V wire pulled by CT TERESALee. Pt remains on bedrest at this time and
monitoring BP. Pulse oximetry 94% on 3L nasal cannula. Pt achieving 1500 with IS, continued use encouraged. Mediastinal chest tubes x2 in place, drainage serosanguineous. Pt tolerating PO diet. Voiding without issue. Midsternal incision approximated
and PRINTED CIRCUIT BOARDS ROUTER. Bilateral leg incisions and bilateral groin punctures intact. Right IJ cordis in place with KVO. Remains on insulin gtt per glycemic protocol. Pt currently receiving 1 unit PRBC.
[2025-04-08] MEDS: PLAVIX 75 MG PO (09:01)
[2025-04-08] MEDS: BACTROBAN 2% OINTMENT 1 APPLIC NASAL ×2 (09:01→20:44)
[2025-04-08] MEDS: LOW STRENGTH ASPIRIN 81 MG PO (09:01)
[2025-04-08 10:23] LABS: Glucose - Point of Care 166 mg/dl (70-99)
--- NOTE | 2025-04-08 11:38 | W.PN.CD ---
Today's Communication / Plan
-
- Clinically stable postoperatively; remains in sinus rhythm.
- Continue routine postsurgical care as directed by CT Surgery.
- Continue cash teller; will follow.
Impression / Plan
-
74-year-old male with past medical history of ASCVD (LAD 2004, RCA 2006, RCA 2013) on DAPT, hypertension, type 2 diabetes, SVT (s/p ablation [facility] 2016), hypothyroidism, Peyronie's disease, migraines, type 2 diabetes, right eye optic neuritis (tx 2022
steroids), pyloric stenosis (s/p surgery 3 weeks old), presented to the ED complaining of chest pain, fatigue and blurry vision. Patient was hospitalized here from 03/17-03/19/2025 secondary to NSTEMI. He underwent cardiac cath on 03/17 revealing
100% stenosis of R PL 2 within previous stented segments. PCI was unsuccessful and medical management with 48 hours of heparin, DAPT and was discharged on Imdur. He described the episodes of chest pain to be 1-2 out of 10 in pain, short-lived, no
radiating pain, associated with right eye blurry vision, nausea, shortness of breath. Triggered with movement, better with rest.
Primary Will Call Clerk: Dr. Alvarez
CAD status-post CABG x 5:
- Clinically stable postoperatively; remains in sinus rhythm.
-ASCVD (LAD 2003, RCA 2005, RCA 2013)
-NSTEMI s/p unsuccessful PCI 03/17/2025
-Cardiac catheterization 03/17/2025 revealed 100% stenosis of RPL 2 with the previously stented segment. Unsuccessful attempt.
-TTE on 03/17/2025 revealed LVEF 55 to 60%, no regional wall motion abnormalities, aortic sclerosis, mild MR
-LDL 30 at goal on crestor 40
-Continue aspirin/Plavix.
- Continue routine postsurgical care as directed by CT Surgery.
- Continue cash teller; will follow.
HTN
-Currently patient's home meds are amlodipine 10 mg daily, carvedilol 25 twice daily, valsartan 160 twice daily, isosorbide mononitrate 30 mg daily
- Blood pressure stable/controlled; continue to monitor closely postoperatively.
History of SVT status post ablation 2017 at [facility] by Dr. Suresh
- Continue amiodarone and metoprolol.
Diabetes 2
-Hga1c 6.7 03/17/25
-SSI
-Consider adding farxiga at discharge
HLD
- Continue crestor
-LDL 30 at goal
Physical Exam
Vital Signs/Labs
Vital Signs
Temp Pulse Resp BP Pulse Ox
98.2 F 89 16 112/61 93
04/08/25 08:00 04/08/25 10:00 04/08/25 08:00 04/08/25 10:00 04/08/25 08:00
04/07/25 04/08/25 04/09/25
06:59 06:59 06:59
Actual Weight 91.2 kg
04/08/25 05:48
04/08/25 05:48
PT 16.9 Sec (11.4-14.6) H 04/06/25 16:16
INR 1.32 04/06/25 16:16
APTT 27.4 Sec (23.4-35.0) 04/06/25 16:16
Magnesium 2.1 mg/dl (1.6-2.3) 04/08/25 05:48
Physical Exam
Constitutional: No acute distress and Comfortable
EENT: Anicteric
Cardiovascular: Rhythm & rate is regular, Pedal edema is absent, Systolic murmur absent and S1S2 is normal
Respiratory: Respiratory effort normal and Lungs clear to auscul.
GI: Soft
Neuro/Psych: AO x 3
Other: Skin (Warm, dry, intact)
Data Reviewed
-
Date of Service: April 08, 2025
EKG: Tracing Personally Visualized and interpreted (Telemetry: Sinus rhythm)
Medical Tests (PFT, Pathology etc): Discussed with Nurse and Discussed with Patient
Labs: Labs Reviewed by me
Critical Care Time (in minutes): 36
[2025-04-08] MEDS: KCL 20 MEQ PO (12:19)
[2025-04-08] MEDS: LASIX 40 MG IV (12:19)
[2025-04-08 12:28] LABS: Glucose - Point of Care 129 mg/dl (70-99)
--- NOTE | 2025-04-08 12:30 | PTCARENOTE ---
Mediastinal chest tubes d/c'd per order. Pt assisted OOB to chair, tolerated well. Remains SR with HR 87. BP 102/57 MAP 71. Pulse oximetry 92% on 3L nasal cannula. Pt received 40mg IV Lasix following PRBC. Voiding in urinal without issue.
[2025-04-08] MEDS: FERRLECIT 110 MG IV (13:58)
[2025-04-08 14:02] LABS: Glucose - Point of Care 97 mg/dl (70-99)
[2025-04-08] MEDS: LANTUS 0.14 UNITS SC (14:58)
[2025-04-08 16:09] LABS: Glucose - Point of Care 110 mg/dl (70-99)
[2025-04-08] MEDS: NOVOLOG FLEXPEN SC (16:22)
--- NOTE | 2025-04-08 16:29 | PTCARENOTE ---
VS obtained, assessment stable. Patient remains oob in chair, resting comfortably.
[2025-04-08] MEDS: NOVOLOG FLEXPEN-MODERATE RESISTANCE 3 UNITS SC (17:46)
[2025-04-08 17:50] LABS: Glucose - Point of Care 216 mg/dl (70-99)
--- NOTE | 2025-04-08 19:45 | PTCARENOTE ---
Patient received from RN @ 1900. Patient lying in bed sleeping comfortably w/ call lawrence in reach. AOx3. NSR on monitor. BP 101/53 HR 90. Heart sounds audible. Radial and pedal pulses present. trace generalized edema noted. POX 90% 3L NC. IS
1000. Lung sounds diminished bilaterally throughout. Bowel sounds present. No BM noted. Voiding clear yellow urine. Sternal incision well approximated TASSEL MAKER. Right and left knee incisions and groin punctures well approximated DANILO. RIJ cordis
and Right wrist PIV patent and intact.
[2025-04-08] MEDS: REMOVE LIDOCAINE PATCH 1 PATCH REMOVE (20:44)
[2025-04-08] MEDS: ELAVIL 30 MG PO (21:58)
[2025-04-08] MEDS: ZETIA 10 MG PO (21:59)
[2025-04-08 22:20] LABS: Glucose - Point of Care 190 mg/dl (70-99)
[2025-04-08] MEDS: VALIUM 5 MG PO (22:33)
[2025-04-09] VITALS (12 sets, daily range): BP systolic 98–119; BP diastolic 51–65; BMI 31.3
--- NOTE | 2025-04-09 00:10 | PTCARENOTE ---
Patient reassessed and call lawrence in reach. NSR BP 98/54 HR 82 POX 94% 3L NC.
--- NOTE | 2025-04-09 04:20 | PTCARENOTE ---
Patient reassessed. NSR BP 108/60 HR 84 POX 94% 3L NC. Labs obtained. Patient voiding in urinal.
--- NOTE | 2025-04-09 04:32 | W.PN.CT ---
Today's Communication / Plan
-
Plan:
-No major issues overnight. Hemodynamically and neurologically intact
-Off all drips
-BP has been soft postop, improving following 1 PRBC yesterday
-H/H 8.6/25.7 up from 7.7/22.4
-Postop urinary retention has resolved, on Flomax and Finasteride
-Cont. current meds (ASA, Plavix, Amiodarone, Synthroid, Crestor, Zetia, Finasteride, Flomax, Toprol XL if BP permits)
-D/C cordis
-Diuresis if BP permits
-Encourage use of IS
-Wean off of O2
-OOB into chair
-Ambulate
-Likely d/c home tomorrow
Assessment / Plan
-
-S/p CABG x 5 (In situ ENRIQUEZ to LAD, Ao to RSVG to jailed diagonal, Ao to RSVG to distal OM, Ao to RSVG to RPL B sequential to RPL B), Left atrial appendage exclusion [35 mm device], by Dr. Sorenson, 04/06/25, pod#3
PMH:
- CAD w/history of 5 stents
- NSTEMI/in-stent restenosis s/p unsuccessful PCI 03/17/2025
- Hypertension
- DM-II (A1c 6.7)
- Hypothyroidism
- Migraines
- Peyronie's Disease
- BPH (on Flomax and Finasteride @ home)
- Pyloric Stenosis s/p Pyloric Stenosis Repair (2 weeks old)
- R eye optic neuritis
- S/P R Eye nevus removal (2017)
- S/P SVT Ablation (2017)
- S/P Skin Cancer Excision
- S/P Left Knee Arthroscopy
- Acute post-op blood loss anemia (transfused 2u PRBC's)
- Acute postop atelectasis
- Acute postop pulmonary insufficiency
- Acute postop hypovolemia with subsequent hypervolemia
- Acute postop urinary retention
- Acute postop orthostasis
- Acute postop tachycardia
Discussed patient care with: Cardiology, Nursing, Respiratory Therapy, Pharmacy and Care Team
Subjective
Procedure
S/p CABG x 5 (In situ ENRIQUEZ to LAD, Ao to RSVG to jailed diagonal, Ao to RSVG to distal OM, Ao to RSVG to RPL B sequential to RPL B), Left atrial appendage exclusion [35 mm device], by Dr. Sorenson, 04/06/25
-
Date of Service: April 09, 2025
Pt c/o mild incisional pain, otherwise feels well
Objective Data
-
PT 16.9 Sec (11.4-14.6) H 04/06/25 16:16
INR 1.32 04/06/25 16:16
APTT 27.4 Sec (23.4-35.0) 04/06/25 16:16
Vital Signs
Vital Signs
Temp Pulse Resp BP Pulse Ox
98.4 F 85 16 98/54 94
04/09/25 04:17 04/09/25 04:00 04/09/25 04:17 04/09/25 00:00 04/09/25 04:17
CT Intake/Output/Weight
04/08/25 04/08/25 04/09/25
06:59 18:59 06:59
Intake Total 837.5 / 1987.6 632.6 / 662.6 30 / 662.6
Output Total 460 / 730 1445 / 2345 900 / 2345
Balance 377.5 / 1257.6 -812.4 / -1682.4 -870 / -1682.4
SaO2: 94 (3)
Physical Exam
-
General: Awake, Oriented and AOx3
Cardiovascular: Regular rate & rhythm, No Murmurs, No Rub and No Gallop
Respiratory: Decreased Breath Sounds (at bases, otherwise clear)
Sternum: Stable
Incision: Clean, Dry, Intact and Dressing Intact
Extremities: Other (+trace edema)
Data Reviewed
-
Lab Results: Results Reviewed
Medications: Active Meds Reviewed
Chest X-Ray: Report Reviewed and Image Reviewed
ECG: Report Reviewed and Image Reviewed
[2025-04-09 04:34] LABS: Hematocrit 25.7 % (39.0-52.0); Hemoglobin 8.6 g/dL (13.0-18.0); Mean Corp Hgb Conc. 33.5 g/dL (33.0-37.0); Mean Corpuscular Volume 88.6 fL (80.0-94.0); Platelet Count 162 10^3/uL (130-400); Red Cell Dist. Width 13.2 % (11.5-14.5)
[2025-04-09 04:59] LABS: Blood Urea Nitrogen 24 mg/dl (9-20); Calcium 8.6 mg/dl (8.4-10.2); Carbon Dioxide 25 mmol/L (22-30); Chloride 106 mmol/L (98-107); Estimated Creatinine Clearance 54 ml/min; Glucose 143 mg/dl (70-99); Magnesium 2.1 mg/dl (1.6-2.3); Potassium 4.2 mmol/L (3.5-5.1); Sodium 135 mmol/L (135-145); eGFR 53.40
[2025-04-09] MEDS: CALCIUM GLUCONATE 130 MG IV (05:20)
[2025-04-09] MEDS: SYNTHROID 125 MCG PO (06:34)
[2025-04-09] MEDS: TYLENOL 1000 MG PO ×3 (06:34→22:05)
--- NOTE | 2025-04-09 07:43 | PTCARENOTE ---
Assumed care of patient at 0700. Pt is awake, alert, and oriented. No complaints of pain at this time. Pt SR with HR 83. BP 105/57 MAP 72. Pulse oximetry 90% on room air. Pt achieving 1500 with IS, continued use encouraged. Pt tolerating PO diet.
Voiding without issue. Midsternal incision approximated and DANILO. Bilateral groin punctures and bilateral leg incisions approximated and GAMBRELER HELPER. Right IJ cordis remains in place at this time. Pt currently OOB in chair with at bedside.
[2025-04-09] MEDS: BACTROBAN 2% OINTMENT 1 APPLIC NASAL ×2 (08:17→19:35)
[2025-04-09] MEDS: LASIX 40 MG IV (08:17)
[2025-04-09] MEDS: LIDOCAINE 4% PATCH 1 PATCH TOPICAL (08:17)
[2025-04-09] MEDS: PROSCAR 5 MG PO (08:18)
[2025-04-09] MEDS: SENOKOT-S 1 TABLET PO ×2 (08:18→19:35)
[2025-04-09] MEDS: VITAMIN D3 (cholecalciferol) 50 MCG PO (08:18)
[2025-04-09] MEDS: MAGNESIUM OXIDE 500 MG PO ×2 (08:18→19:35)
[2025-04-09] MEDS: CRESTOR 40 MG PO (08:18)
[2025-04-09] MEDS: TOPROL XL 12.5 MG PO ×2 (08:18→19:35)
[2025-04-09] MEDS: PACERONE 400 MG PO ×3 (08:18→22:05)
[2025-04-09] MEDS: LOW STRENGTH ASPIRIN 81 MG PO (08:19)
[2025-04-09] MEDS: PROTONIX 40 MG PO (08:19)
[2025-04-09] MEDS: NEURONTIN 100 MG PO ×3 (08:19→22:04)
[2025-04-09] MEDS: PLAVIX 75 MG PO (08:19)
[2025-04-09] MEDS: FLOMAX 0.8 MG PO (08:19)
[2025-04-09] MEDS: NOVOLOG FLEXPEN-MODERATE RESISTANCE 1 UNITS SC ×2 (08:22→17:50)
[2025-04-09 08:23] LABS: Glucose - Point of Care 167 mg/dl (70-99)
--- NOTE | 2025-04-09 10:16 | PTCARENOTE ---
Pt ambulated with RN assistance to bathroom. Pt able to void without issue. Able to brush teeth at bathroom sink. Assisted pt back to bed, cordis removed per order.
[2025-04-09] MEDS: NOVOLOG FLEXPEN-MODERATE RESISTANCE 3 UNITS SC (11:47)
[2025-04-09 11:48] LABS: Glucose - Point of Care 240 mg/dl (70-99)
[2025-04-09] MEDS: KCL 20 MEQ PO ×3 (11:59→22:05)
--- NOTE | 2025-04-09 12:00 | PTCARENOTE ---
Pt ambulated in hallway this RN. Pt with no reports of dizziness however pt did become fatigue and required a short rest prior to ambulating again. Pt assisted back to chair in room. Remains SR with HR 80's. BP 111/55 MAP 72. Pulse oximetry 91% on
room air.
[2025-04-09] MEDS: FERRLECIT 110 MG IV (13:35)
[2025-04-09] MEDS: LASIX 40 MG PO (13:35)
[2025-04-09] MEDS: NSS IV (13:35)
[2025-04-09 14:12] LABS: Glucose - Point of Care 174 mg/dl (70-99)
--- NOTE | 2025-04-09 16:40 | W.PN.CD ---
Today's Communication / Plan
-
-Remains clinically stable postoperatively.
-Sinus rhythm on telemetry; no events.
-Discharge to home tomorrow.
-Consider adding farxiga 10 mg daily at discharge.
Impression / Plan
-
74-year-old male with past medical history of ASCVD (LAD 2003, RCA 2005, RCA 2013) on DAPT, hypertension, type 2 diabetes, SVT (s/p ablation HUP 2016), hypothyroidism, Peyronie's disease, migraines, type 2 diabetes, right eye optic neuritis (tx 2022
steroids), pyloric stenosis (s/p surgery 3 weeks old), presented to the ED complaining of chest pain, fatigue and blurry vision. Patient was hospitalized here from 03/17-03/19/2025 secondary to NSTEMI. He underwent cardiac cath on 03/17 revealing
100% stenosis of R PL 2 within previous stented segments. PCI was unsuccessful and medical management with 48 hours of heparin, DAPT and was discharged on Imdur. He described the episodes of chest pain to be 1-2 out of 10 in pain, short-lived, no
radiating pain, associated with right eye blurry vision, nausea, shortness of breath. Triggered with movement, better with rest.
Primary Journeyman Molder: Dr. Alvarez
CAD status-post CABG x 5:
-Remains clinically stable postoperatively.
-Sinus rhythm on telemetry; no events.
-ASCVD (LAD 2003, RCA 2005, RCA 2013)
-NSTEMI s/p unsuccessful PCI 03/17/2025
-Cardiac catheterization 03/17/2025 revealed 100% stenosis of RPL 2 with the previously stented segment. Unsuccessful attempt.
-TTE on 03/17/2025 revealed LVEF 55 to 60%, no regional wall motion abnormalities, aortic sclerosis, mild MR
-LDL 30 at goal on crestor 40
-Continue Toprol-XL.
-Continue aspirin/Plavix.
-Discharge to home tomorrow.
HTN
-Controlled/stable.
- Continue current medication regimen.
History of SVT status post ablation 2017 at [facility] by Dr. Suresh
- Continue current doses of amiodarone and metoprolol.
Diabetes 2
-Hga1c 6.7 03/17/25
-SSI
-Consider adding farxiga 10 mg daily at discharge.
HLD
- Continue crestor
-LDL 30 at goal
Physical Exam
Vital Signs/Labs
Vital Signs
Temp Pulse Resp BP Pulse Ox
98.7 F 92 16 104/51 95
04/09/25 12:00 04/09/25 15:00 04/09/25 12:00 04/09/25 14:53 04/09/25 14:53
04/08/25 04/09/25 04/10/25
06:59 06:59 06:59
Actual Weight 96.1 kg
04/09/25 04:06
04/09/25 04:06
PT 16.9 Sec (11.4-14.6) H 04/06/25 16:16
INR 1.32 04/06/25 16:16
APTT 27.4 Sec (23.4-35.0) 04/06/25 16:16
Magnesium 2.1 mg/dl (1.6-2.3) 04/09/25 04:06
Physical Exam
Constitutional: No acute distress and Comfortable
EENT: Anicteric and Moist mucous membranes
Cardiovascular: Rhythm & rate is regular, Pedal edema is absent, Systolic murmur absent and S1S2 is normal
Respiratory: Respiratory effort normal and Lungs clear to auscul.
GI: Soft
Neuro/Psych: AO x 3
Other: Skin (Warm, dry, intact)
Data Reviewed
-
Date of Service: April 09, 2025
EKG: Tracing Personally Visualized and interpreted (Telemetry: Sinus rhythm)
Labs: Labs Reviewed by me
Critical Care Time (in minutes): 33
--- NOTE | 2025-04-09 17:10 | PTCARENOTE ---
Pt ambulated with RN assistance to bathroom and in hallway, getting stronger with ambulation but continues to require assistance when becoming fatigued. Pt remains SR with HR 79. BP 117/54 MAP 71. Pulse oximetry 91% on room air.
[2025-04-09 17:50] LABS: Glucose - Point of Care 178 mg/dl (70-99)
[2025-04-09] MEDS: REMOVE LIDOCAINE PATCH 1 PATCH REMOVE (19:35)
--- NOTE | 2025-04-09 19:53 | PTCARENOTE ---
Patient received from RN @ 1900. Patient sitting chair comfortably w/ call lawrence in reach. AOx3. NSR on monitor. BP 110/53 HR 80. Heart sounds audible. Radial and pedal pulses present. trace generalized edema noted. POX 92% RA. IS 1500.
Lung sounds diminished bilaterally in bases. Bowel sounds present. No BM noted. Voiding clear yellow urine. Sternal incision well approximated IT APPLICATION ARCHITECT. Right and left knee incisions and groin punctures well approximated IT APPLICATION ARCHITECT. Right wrist PIV patent
and intact. Ambulated [address] See worklist for assessment details.
[2025-04-09] MEDS: ZETIA 10 MG PO (22:04)
[2025-04-09] MEDS: ELAVIL 30 MG PO (22:04)
[2025-04-09] MEDS: LANTUS 0.14 UNITS SC (22:15)
[2025-04-09 22:16] LABS: Glucose - Point of Care 182 mg/dl (70-99)
[2025-04-09] MEDS: VALIUM 5 MG PO (22:23)
--- NOTE | 2025-04-09 23:59 | PTCARENOTE ---
Patient reassessed. NSR BP 114/60 HR 79 POX 93% 2L NC.
[2025-04-10] VITALS (8 sets, daily range): BP systolic 96–116; BP diastolic 53–95; PULSE 75; O2SAT 94–95; BMI 30.8
[2025-04-10 00:37] LABS: Glucose - Point of Care 160 mg/dl (70-99)
--- NOTE | 2025-04-10 04:27 | PTCARENOTE ---
Patient reassessed. NSR BP 113/53 HR 79 POX 94% 2L NC. Labs drawn. Patient voiding in urinal.
[2025-04-10 04:43] LABS: Hematocrit 23.0 % (39.0-52.0); Hemoglobin 8.0 g/dL (13.0-18.0); Mean Corp Hgb Conc. 34.8 g/dL (33.0-37.0); Mean Corpuscular Volume 87.5 fL (80.0-94.0); Platelet Count 204 10^3/uL (130-400); Red Cell Dist. Width 13.1 % (11.5-14.5)
[2025-04-10 04:52] LABS: Blood Urea Nitrogen 23 mg/dl (9-20); Calcium 8.7 mg/dl (8.4-10.2); Carbon Dioxide 27 mmol/L (22-30); Chloride 108 mmol/L (98-107); Estimated Creatinine Clearance 59 ml/min; Glucose 105 mg/dl (70-99); Magnesium 2.1 mg/dl (1.6-2.3); Potassium 4.3 mmol/L (3.5-5.1); Sodium 139 mmol/L (135-145); eGFR 58.37
--- NOTE | 2025-04-10 05:19 | W.PN.CT ---
Today's Communication / Plan
-
Plan:
-No major issues overnight. Hemodynamically and neurologically intact
-Off all drips
-BP has been soft postop, improved following 1 PRBC on 04/08. Was on Coreg @ home, BP likely will not tolerate, will keep on Toprol XL for now
-Will increase Toprol XL to 25 mg BID today, given postop tachycardia
-H/H 8.0
-Postop urinary retention has resolved, on Flomax and Finasteride
-Cont. diuresis. Cardiology recommends Farxiga @ discharge
-Cont. current meds (ASA, Plavix, Amiodarone, Synthroid, Crestor, Zetia, Finasteride, Flomax, Toprol XL)
-F/U 2-view cxr
-Encourage use of IS
-OOB into chair
-Ambulate
-Home today
Assessment / Plan
-
-S/p CABG x 5 (In situ ENRIQUEZ to LAD, Ao to RSVG to jailed diagonal, Ao to RSVG to distal OM, Ao to RSVG to RPL B sequential to RPL B), Left atrial appendage exclusion [35 mm device], by Dr. Sorenson, 04/06/25, pod#4
PMH:
- CAD w/history of 5 stents
- NSTEMI/in-stent restenosis s/p unsuccessful PCI 03/17/2025
- Hypertension
- DM-II (A1c 6.7)
- Hypothyroidism
- Migraines
- Peyronie's Disease
- BPH (on Flomax and Finasteride @ home)
- Pyloric Stenosis s/p Pyloric Stenosis Repair (2 weeks old)
- R eye optic neuritis
- S/P R Eye nevus removal (2016)
- S/P SVT Ablation (2017)
- S/P Skin Cancer Excision
- S/P Left Knee Arthroscopy
- Acute post-op blood loss anemia (transfused 2u PRBC's)
- Acute postop atelectasis
- Acute postop pulmonary insufficiency
- Acute postop hypovolemia with subsequent hypervolemia
- Acute postop urinary retention
- Acute postop azotemia
- Acute postop orthostasis
- Acute postop tachycardia
- Acute postop hyponatremia
Discussed patient care with: Cardiology, Nursing, Respiratory Therapy, Pharmacy and Care Team
Subjective
Procedure
S/p CABG x 5 (In situ ENRIQUEZ to LAD, Ao to RSVG to jailed diagonal, Ao to RSVG to distal OM, Ao to RSVG to RPL B sequential to RPL B), Left atrial appendage exclusion [35 mm device], by Dr. Sorenson, 04/06/25
-
Date of Service: April 10, 2025
Pt c/o mild incisional pain, otherwise feels well. Ambulating halls without difficulty
Objective Data
-
Lab Results
04/10/25 04:18
04/10/25 04:09
PT 16.9 Sec (11.4-14.6) H 04/06/25 16:16
INR 1.32 04/06/25 16:16
APTT 27.4 Sec (23.4-35.0) 04/06/25 16:16
Vital Signs
Vital Signs
Temp Pulse Resp BP Pulse Ox
98.9 F 78 18 113/53 94
04/10/25 04:25 04/10/25 04:00 04/10/25 04:25 04/10/25 03:27 04/10/25 04:25
CT Intake/Output/Weight
04/09/25 04/09/25 04/10/25
06:59 18:59 06:59
Intake Total 30 / 662.6 40 / 40
Output Total 900 / 2345 1700 / 2975 1275 / 2975
Balance -870 / -1682.4 -1660 / -2935 -1275 / -2935
SaO2: 94 (RA)
Physical Exam
-
General: Awake, Oriented and AOx3
Cardiovascular: Regular rate & rhythm, No Murmurs, No Rub and No Gallop
Respiratory: Decreased Breath Sounds (at bases, otherwise clear)
Sternum: Stable
Incision: Clean, Dry and Intact
Extremities: Other (+trace edema)
Data Reviewed
-
Lab Results: Results Reviewed
Medications: Active Meds Reviewed
Chest X-Ray: Report Reviewed and Image Reviewed
ECG: Report Reviewed and Image Reviewed
[2025-04-10] MEDS: LASIX 40 MG IV ×2 (06:35→12:13)
[2025-04-10] MEDS: TYLENOL 1000 MG PO (06:35)
[2025-04-10] MEDS: SYNTHROID 125 MCG PO (06:35)
[2025-04-10] MEDS: KCL 20 MEQ PO ×3 (06:35→12:13)
[2025-04-10 07:30] LABS: Glucose - Point of Care 146 mg/dl (70-99)
[2025-04-10] MEDS: NOVOLOG FLEXPEN-MODERATE RESISTANCE SC (07:32)
--- NOTE | 2025-04-10 07:46 | PN.DE.MGMTRT ---
Insulin Management
- -
04/10/2025: Diabetes Management Follow
74 year old male with PMH:ASCVD, HTN CAD s/p stents with MVD, SVT (s/p ablation HUP 2016), hypothyroidism, Peyronie's disease, migraines, right eye optic neuritis (tx 2022 steroids), pyloric stenosis (s/p surgery 3 weeks old) and T2DM. Patient
presented to the ED c/o chest pain, fatigue and blurry vision. Patient was hospitalized here from 03/17-03/19/2025 secondary to NSTEMI. He underwent cardiac cath on 03/17 revealing 100% stenosis of R PL 2 within previous stented segments, PCI was
attempted but was unsuccessful and pt was evaluated for CABG. Patient is currently undergoing CABG.
He was taking Metformin 1000mg BID and Ozempic prior to admission. A1C 6.7% on 03/17/25. Cr 1.2, eGFER >60-->1.3, eGFR 58.37 today
Patient awake alert, oriented, sitting up in chair, offers no complaints, able to discuss diabetes care plan. at bedside.
Transitioned off insulin infusion on 04/08 @17:46 to Lantus 14 units @ HS and moderate corrective with meals
HS glucose was 182--> 160 @MN and 146 fasting POC.
Will start Farxiga 10mg daily and resume OP Metformin 1000 mg BID, 1st dose now.
STOP Lantus, no indication for basal insulin at this time. Cont moderate corrective with meals.
Pt reports hx of severe gastrointestinal SE with taking Jardiance, discussed potential SE from Farxiga and advised pt to stop taking med if he experiences the same SE he had with Jardiance.
Will follow closely and make further adjustments if necessary. Discussed with Nurse
Diabetes History
- -
Type of Diabetes: 2
Pre-Admission Diabetes Regimen
04/09/25 04/10/25
22:00 04:09
Creatinine Cancelled 1.3
Insulin Pump Settings
IP Diabetes Regimen
04/09/25 04/09/25 04/09/25
08:21 11:45 14:11
Glucose
POC Glucose 167 H 240 H 174 H
04/09/25 04/09/25 04/09/25
17:49 22:00 22:14
Glucose Cancelled
POC Glucose 178 H 182 H
04/10/25 04/10/25 04/10/25
00:35 04:09 07:22
Glucose 105 H
POC Glucose 160 H 146 H
Meal type: Breakfast
Amount consumed: 100%
Patient Education
[2025-04-10 08:12] LABS: B.E. - POC 2.2 mmol/L; Glucose - POC 120 mg/dl (70-99); HCO3 - POC 27 mmol/L (21-28); Hematocrit - POC 29 % PCV (42-52); Hemodilution- POC No; Hemoglobin Calculated - POC 9.8; Ionized Calcium - POC 1.24 mmol/L (1.15-1.33); Lactate - POC < 0.30 mmol/L (0.36-0.75); O2 Saturation %Calculated-POC 100.0 % (94-98); PCO2 - POC 44 mmHg (35-48); PO2 - POC 444 mmHg (83-108); Potassium - POC 3.8 mmol/L (3.5-5.1); Sodium - POC 142 mmol/L (136-145); Specimen Type - POC Arterial; pH - POC 7.40 (7.35-7.45)
[2025-04-10 08:12] LABS: B.E. - POC 4.6 mmol/L; Glucose - POC 181 mg/dl (70-99); HCO3 - POC 28 mmol/L (21-28); Hematocrit - POC 22 % PCV (42-52); Hemodilution- POC Yes; Hemoglobin Calculated - POC 7.6; Ionized Calcium - POC 1.11 mmol/L (1.15-1.33); Lactate - POC < 0.30 mmol/L (0.36-0.75); O2 Saturation %Calculated-POC 100.0 % (94-98); PCO2 - POC 37 mmHg (35-48); PO2 - POC 376 mmHg (83-108); Potassium - POC 5.1 mmol/L (3.5-5.1); Sodium - POC 140 mmol/L (136-145); Specimen Type - POC Arterial; pH - POC 7.49 (7.35-7.45)
[2025-04-10] MEDS: BACTROBAN 2% OINTMENT 1 APPLIC NASAL (08:27)
[2025-04-10] MEDS: FEOSOL 325 MG PO (08:28)
[2025-04-10] MEDS: MAGNESIUM OXIDE 500 MG PO (08:28)
[2025-04-10] MEDS: CRESTOR 40 MG PO (08:28)
[2025-04-10] MEDS: VITAMIN C 500 MG PO (08:28)
[2025-04-10] MEDS: PACERONE 400 MG PO (08:28)
[2025-04-10] MEDS: SENOKOT-S 1 TABLET PO (08:28)
[2025-04-10] MEDS: TOPROL XL 25 MG PO (08:28)
[2025-04-10] MEDS: PROSCAR 5 MG PO (08:28)
[2025-04-10] MEDS: PLAVIX 75 MG PO (08:28)
[2025-04-10] MEDS: NEURONTIN 100 MG PO (08:29)
[2025-04-10] MEDS: VITAMIN D3 (cholecalciferol) 50 MCG PO (08:29)
[2025-04-10] MEDS: FLOMAX 0.8 MG PO (08:29)
[2025-04-10] MEDS: LASIX 40 MG PO (08:29)
[2025-04-10] MEDS: LIDOCAINE 4% PATCH 1 PATCH TOPICAL (08:29)
[2025-04-10] MEDS: LOW STRENGTH ASPIRIN 81 MG PO (08:29)
[2025-04-10] MEDS: PROTONIX 40 MG PO (08:29)
--- NOTE | 2025-04-10 08:45 | PTCARENOTE ---
Patient received from night baker RN; AAOx3, responds spontaneously to RN and follows commands; Patient denies any vision blurriness or loss at this time; NSR on monitor; Trace generalized anasarca; +2 DP and radial pulses; Shallow respirations;
Non-productive, occasional cough; SpO2 90-91% on RA; IS 2000 ml; Patient passing flatus; Frequent urination; Surgical sites intact; PIVx1 - #22 right wrist; 2 view CXR completed; Metoprolol Xl dose increased; See nursing documentation for further
information
--- NOTE | 2025-04-10 09:00 | CM ---
Pricing on Vin[place] 10mg $144.76 for a 30 day supply. The patient still owes $1900 OOP expense. I will place a free 30 day coupon in the red discharge folder.
--- NOTE | 2025-04-10 10:52 | CM ---
Chart reviewed. Patient is independent of ADLS, lives with his in a [address], [address], 0 [address]ME. Plan is for the patient to return home. CM to follow
[2025-04-10] MEDS: GLUCOPHAGE 1000 MG PO (10:57)
[2025-04-10] MEDS: FARXIGA 10 MG PO (10:57)
--- NOTE | 2025-04-10 10:57 | W.PN.CD ---
Today's Communication / Plan
-
Agree with diuresis, and home with a few days of Lasix
No objection to discharge
Outpatient cardiac rehab encouraged
Impression / Plan
-
Background: 74-year-old male with ASCVD (LAD 2004, RCA 2006, RCA 2013) on DAPT, hypertension, type 2 diabetes, SVT (s/p ablation HUP 2016), hypothyroidism, Peyronie's disease, migraines, type 2 diabetes, right eye optic neuritis (tx 2022 steroids),
pyloric stenosis (s/p surgery 3 weeks old), presented to the ED complaining of chest pain, fatigue and blurry vision. Patient was hospitalized here from 03/17-03/19/2025 secondary to NSTEMI. He underwent cardiac cath on 03/17 revealing 100% stenosis
of R PL 2 within previous stented segments. PCI was unsuccessful and medical management with 48 hours of heparin, DAPT and was discharged on Imdur. He described the episodes of chest pain to be 1-2 out of 10 in pain, short-lived, no radiating
pain, associated with right eye blurry vision, nausea, shortness of breath. Triggered with movement, better with rest.
Primary Software Engineer Intern: Dr. Alvarez
CAD
- NSTEMI 03/2015 with peak trop 12, severe CAD at cath
- status-post CABG x 5 on 04/06/2025
Post--op anemia
Mixed hyperlipidemia
HTN
DM
Subjective:
No CP or dyspnea. Wieght is still above admit weight.
Intraop MANNY
POST OPERATIVE FINDINGS
Status post CABG x 5, the left ventricle is vigorously diaz, no regional
wall motion abnormalities seen, normal contractibility, EF 55 to 60%.
Status post left atrial appendage exclusion, no flow seen through the left
atrial appendage remnant.
Normal right ventricular size and function.
Trivial to mild mitral regurgitation.
Trace tricuspid regurgitation.
No new aortic valve abnormalities.
Physical Exam
Vital Signs/Labs
Vital Signs
Temp Pulse Resp BP Pulse Ox
98.2 F 82 17 110/61 90
04/10/25 07:30 04/10/25 08:00 04/10/25 07:30 04/10/25 07:21 04/10/25 08:30
04/09/25 04/10/25 04/11/25
06:59 06:59 06:59
Actual Weight 96.1 kg 94.4 kg
04/10/25 04:18
04/10/25 04:09
PT 16.9 Sec (11.4-14.6) H 04/06/25 16:16
INR 1.32 04/06/25 16:16
APTT 27.4 Sec (23.4-35.0) 04/06/25 16:16
Magnesium 2.1 mg/dl (1.6-2.3) 04/10/25 04:09
Physical Exam
Constitutional: No acute distress
Cardiovascular: Rhythm & rate is regular
Respiratory: Respiratory effort normal
GI: Soft
Data Reviewed
-
Date of Service: April 10, 2025
[2025-04-10 11:01] LABS: Glucose - Point of Care 196 mg/dl (70-99)
--- NOTE | 2025-04-10 11:07 | W.DCSUMMARY ---
Documented by User: Heaven Deng NP 04/10/25 12:26
Discharge Summary
Discharge Data
Date of Admission: 04/05/25
Date of Discharge: 04/10/25
-
Pending Results: No
Hospital Course
Primary care physician: Dr. Dinah Zeng
Outpatient stringed instrument tuner: Dr. Alvarez
Inpatient consultants: Cardiology ([facility])
Procedures:
1. CABG x 5 (ENRIQUEZ-LAD, SVG-D1, SVG -OM, [id number] - RPLB with eLAA (#35)
Primary Diagnosis:
1. NSTEMI
Secondary Diagnoses:
1. CAD (PCI to RCA '06, '14 & LAD '04)
2. HTN
3. Hypothyroidism
4. T2DM (A1C 6.7%)
5. Migraines
6. R eye optic neuritis
7. L knee arthroscopy
8. Pyloric stenosis repair (03/2025)
9. SVT ablation (2016)
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
HPI: Mr. Joseph Castillo is a 74-year-old male with a PMHx of CAD (s/p PCI to RCA & LAD), HTN, T2DM (6.7%), Hypothyroidism, SVT Ablation (2016), Migraines, R eye optic neuritis, L knee arthroscopy, and pyloric stenosis repair who presented to [facility] ED
on 04/05/25 with complaints of recurrent dizziness, weakness, and chest pain on exertion. He was recently admitted 2-weeks prior to this with NSTEMI presenting with chest pain, fatigue, and blurry vision. At that time, he was taken to the Cardiac
[facility] where in-stent restenosis of his prior RPL 2 stent was noted as well as in-stent restenosis of his LAD at the takeoff of a diagonal branch. Reintervention on the RPL 2 was attempted and unfortunately failed. Patient remained chest
pain-free and was ultimately medically managed following this. During this hospitalization, Mr. Castillo reported symptoms of dizziness, weakness, and chest pain with exertion began to occur over several days. Cardiology was consulted in which
referral for revascularization with CABG was preferred due to previously failed attempts of PCI. Cardiothoracic Surgery was consulted and patient was taken for CABG x 5 and LAAe on 04/06/[address] Jeremiah Sorenson. Please see surgeons records for
complete dictation of surgery. Patient was ultimately discharged to home on post-operative day 4 with plan for follow-up with Dr. Sorenson in 4-weeks and Transitional Care Nursing in 2-3 days following discharge.
Hospital course:
Mr. Joseph Castillo is a 74-year-old male with a PMHx of CAD (s/p PCI to RCA & LAD), HTN, T2DM (6.7%), Hypothyroidism, SVT Ablation (2016), Migraines, R eye optic neuritis, L knee arthroscopy, and pyloric stenosis repair who presented to [facility] ED on
04/02/25 with complaints of recurrent dizziness, weakness, and chest pain on exertion. He was recently admitted 2-weeks prior to this with NSTEMI presenting with chest pain, fatigue, and blurry vision. At that time, he was taken to the Cardiac Cath
Lab where in-stent restenosis of his prior RPL 2 stent was noted as well as in-stent restenosis of his LAD at the takeoff of a diagonal branch. Reintervention on the RPL 2 was attempted and unfortunately failed. Patient remained chest pain-free
and was ultimately medically managed following this and discharged home. During his current hospitalization, Mr. Castillo reported symptoms of dizziness, weakness, and chest pain with exertion which began to occur over several days. Cardiology was
consulted in which referral for revascularization with CABG was preferred due to previously failed attempts of PCI. Cardiothoracic Surgery was consulted and patient was taken for CABG x 5 and LAAe on 04/06/[address] Jeremiah Sorenson. Please see
surgeons records for complete dictation of surgery. Patient received a total of 1 units of packed-RBC's during his operative case. In progressive fashion, vasopressor support, central lines, chest tubes, and temporary epicardial pacing wires were
discontinued. An insulin drip was initiated following surgery and was transitioned to Lantus while inpatient. Diabetic Nurse Practitioner was consulted in which patient was referred to resume his previous regiment of Metformin 1000 mg BID and
Ozempic with the addition of Farxiga. On postoperative day 4, Mr. Castillo was tolerating his diet, ambulating, and hemodynamically stable for discharged. His pain was well-controlled with a regiment of TID Gabapentin, PRN Flexeril, and PRN Oxycodone.
He was 14 pounds above his pre-operative weight with a discharge weight of 193.6 lbs and post-operative weight of 207.6 lbs. He received inpatient IV diuresis with Lasix 40 mg BID and was transition to Lasix 40 mg PO BID for 3-days then 40 mg PO
daily for 4-days with plan to monitor his weight at home and have transitional care nursing to follow. A repeat BMP was ordered to assess electrolytes on 3-4 days from discharge. He tolerating ascending the steps with a requirement to rest due to
dyspnea and obtained recovery after 1 minute of rest. He was maintained on supplemental Iron and Vitamin C for 30-days upon discharge due to a discharge Hgb of 8.0 from preoperative Hgb of 10.5. He was ultimately discharged to home on
post-operative day 4 with plan for follow-up with Dr. Sorenson in 4-weeks and Transitional Care Nursing in 2-3 days following discharge. He was provided with instruction on wound care, activity, pain management, and monitoring of weight.
Home medication changes:
- See attached list.
Discharge Plan
-
Patient Disposition: Home (Routine Discharge)
Discharge Diagnosis/Procedures: CABG x 5 with Left Atrial Appendage Closure
Condition: Good
Diet: Low Fat and Low Cholesterol
Activity: As tolerated
Additional Activity: No strenuous activity: no heavy lifting, pushing, pulling anything over 15 pounds for one month.
Continue to use stairs as tolerated
Driving Restrictions: Not until seen by your Dr
Bathing Restrictions: OK to Shower
Blood Work: Obtain BMP in 3-days to assess electrolytes while taking furosemide (Lasix).
Other Services: Cardiac Rehab
Wound Care: -Shower daily. Use soap & water.
-No lotions, creams or powders on incision area.
Specialty Instructions: Weigh Daily- Call MD for wt gain/loss 3 lbs overnight/5 lbs in 1 week
Activity Restrictions/Additional Instructions:
ACTIVITY:
-No strenuous activity: no heavy lifting, pushing, pulling anything over 15 pounds for one month
-continue to use stairs as tolerated
DRIVING RESTRICTIONS:
-No driving for one month or until approved by your surgeon
WOUND CARE:
-Shower daily. Use soap & water.
-No lotions, creams or powders on incision area.
DIET:
-continue a low fat/low cholesterol diet.
-If you are diabetic, continue carb controlled diet.
CARDIAC REHAB:
-Please make appointment to start in 5-6 weeks with your local hospital program. (See Cardiac Rehabilitation Discharge Booklet).
SPECIALTY INSTRUCTIONS:
-Weigh yourself daily. Call your physician for any weight gain/loss of 3 lbs overnight or 5 lbs in one week.
-REPORT any clicking noise or uneven appearance of your sternum to your surgeon immediately.
-If you smoke, you are instructed to quit. The [place] smoking hotline phone number is [phone]
Referrals:
CT Transitional Care Nurse [Outside] - in one to two days
Referral Note:
The Cardiothoracic Transitional Care Nurse will call you to set up a visit in 1-2 days.
[facility]. Cardiac Rehab [Outside] - 05/18/25 1:00 pm
Referral Note: Cardiac Rehab Orientation appointment is on May 18 at 1pm.
The Cardiac Rehab gym is located on the first floor of the [facility].
Mavis Bailey CRNP [Specified Professional Personl, Cardiology] - 05/15/25 10:40 am
Pauline Zeng MD [Family Provider, Internal Medicine] - in three to four weeks
Referral Note: Please make an appointment in four to six weeks.
Jeremiah Sorenson MD [Active, Cardiac Surgery] - 05/08/25 1:15 pm
Prescriptions:
New
furosemide 40 mg Tablet
40 mg PO DAILY Qty: 20 0RF
Rx Instructions:
Take 40 mg twice a day for 3-days at 8AM and 3 PM. Then 40 mg daily for 4-days at 8 AM.
potassium chloride 20 mEq Tablet,Er Particles/Crystals
20 meq PO DAILY Qty: 14 0RF
Rx Instructions:
Take daily with furosemide (Lasix) in AM then discontinue when Lasix stops.
gabapentin 100 mg Capsule
100 mg PO TID 14 Days Qty: 42 0RF
ferrous sulfate [FeroSul] 325 mg (65 mg iron) Tablet
325 mg PO DAILY 30 Days Qty: 0 0RF
metoprolol succinate 25 mg Tablet Extended Release 24 Hr
25 mg PO BID Qty: 60 0RF
acetaminophen 325 mg Tablet
650 mg PO Q6HPRN PRN (Reason: mild pain,headache,temp >101F ) Qty: 0 0RF
sennosides-docusate sodium 8.6-50 mg Tablet
1 tab PO [id number] PRN (Reason: Constipation) Qty: 0 0RF
oxycodone 5 mg Tablet
2.5 - 5 mg PO Q6HPRN PRN (Reason: moderate to severe pain) Qty: 10 0RF
ascorbic acid (vitamin C) [Vitamin C] 500 mg Tablet
500 mg PO DAILY 30 Days Qty: 30 0RF
dapagliflozin propanediol 10 mg Tablet
10 mg PO DAILY Qty: 30 0RF
cyclobenzaprine 10 mg Tablet
5 mg PO Q8HPRN PRN (Reason: muscle spasm) Qty: 10 0RF
Continued
clopidogrel 75 MG tablet
75 mg PO DAILY
aspirin 81 MG tablet,delayed release (DR/EC)
81 mg PO DAILY
ezetimibe 10 MG tablet
10 mg PO HS
tamsulosin 0.4 MG capsule
0.8 mg PO DAILY
metformin 500 MG tablet
1,000 mg PO BID@0800,1700
amitriptyline 10 MG tablet
10 mg PO HS
cholecalciferol (vitamin D3) [Vitamin D3] 25 mcg (1,000 unit) Tablet
50 mcg PO DAILY
multivitamin Tablet
1 tab PO DAILY
famotidine 20 mg tablet
20 mg PO BIDPRN PRN (Reason: acid reflux/heartburn)
levothyroxine 125 mcg tablet
125 mcg PO DAILY AT 0700
finasteride 5 mg tablet
5 mg PO DAILY
diazepam 5 mg tablet
5 mg PO HSPRN PRN (Reason: sleep)
Patient Comments:
07/30/2023: last filled 06/09/23, 14 tabs for 14 days from [facility]#2039
coenzyme Q10 [Co Q-10] 100 mg Capsule
100 mg PO DAILY
Ozempic 0.25 mg or 0.5 mg (2 mg/3 mL) pen injector
0.5 mg SC CAMACHO
rosuvastatin 40 mg Tablet
40 mg PO DAILY
fluticasone propionate 1 SPRAY spray,suspension
1 spray intranasal DAILY PRN (Reason: nasal congestion) Qty: 0 0RF
Patient Comments:
PRN; taken several months ago
Discontinued
flaxseed oil 1,000 MG capsule
3,000 mg PO DAILY
nitroglycerin 0.4 MG tablet, sublingual
0.4 mg sublingual [id number] PRN (Reason: chest pain)
amlodipine 10 MG tablet
10 mg PO DAILY Qty: 30 3RF
carvedilol 25 mg tablet
25 mg PO BID
valsartan 160 mg tablet
160 mg PO BID
isosorbide mononitrate 30 mg Tablet Extended Release 24 Hr
30 mg PO DAILY Qty: 30 0RF
Discharge Orders:
Discharge Patient (As Directed); Ordered 04/10/25
Ordered By: Heaven Deng
Care Plan Goals
Care Plan Goals:
Problem: Readiness for enhanced knowledge related to diagnosis and treatment plan
Goal: Understand your diagnosis and treatment plan needs, including medications if applicable.
Instructions: Know your diagnosis, underlying causes and treatment plan options, including medications if applicable. Consult with your health care team to learn about your diagnosis and treatment plan, including medications if applicable.
Discharge Date and Time
Discharge Date/Time: 04/10/25 13:58
Print Language: GAMBIAN

Documented by User: ASTRID High 04/17/25 13:35
Discharge Summary
Discharge Data
Date of Admission: 04/05/25
Date of Discharge: 04/10/25
Discharge Plan
-
Patient Disposition: Home (Routine Discharge)
Discharge Diagnosis/Procedures: CABG x 5 with Left Atrial Appendage Closure
Condition: Good
Diet: Low Fat and Low Cholesterol
Activity: As tolerated
Additional Activity: No strenuous activity: no heavy lifting, pushing, pulling anything over 15 pounds for one month.
Continue to use stairs as tolerated
Driving Restrictions: Not until seen by your Dr
Bathing Restrictions: OK to Shower
Blood Work: Obtain BMP in 3-days to assess electrolytes while taking furosemide (Lasix).
Other Services: Cardiac Rehab
Wound Care: -Shower daily. Use soap & water.
-No lotions, creams or powders on incision area.
Specialty Instructions: Weigh Daily- Call MD for wt gain/loss 3 lbs overnight/5 lbs in 1 week
Activity Restrictions/Additional Instructions:
ACTIVITY:
-No strenuous activity: no heavy lifting, pushing, pulling anything over 15 pounds for one month
-continue to use stairs as tolerated
DRIVING RESTRICTIONS:
-No driving for one month or until approved by your surgeon
WOUND CARE:
-Shower daily. Use soap & water.
-No lotions, creams or powders on incision area.
DIET:
-continue a low fat/low cholesterol diet.
-If you are diabetic, continue carb controlled diet.
CARDIAC REHAB:
-Please make appointment to start in 5-6 weeks with your local hospital program. (See Cardiac Rehabilitation Discharge Booklet).
SPECIALTY INSTRUCTIONS:
-Weigh yourself daily. Call your physician for any weight gain/loss of 3 lbs overnight or 5 lbs in one week.
-REPORT any clicking noise or uneven appearance of your sternum to your surgeon immediately.
-If you smoke, you are instructed to quit. The [place] smoking hotline phone number is [phone]
Referrals:
[facility] Transitional Care Nurse [Outside] - in one to two days
Referral Note:
The Cardiothoracic Transitional Care Nurse will call you to set up a visit in 1-2 days.
[facility]iac [facility] [Outside] - 05/18/25 1:00 pm
Referral Note: Cardiac Rehab Orientation appointment is on May 18 at 1pm.
The Cardiac Rehab gym is located on the first floor of the [facility].
Mavis Bailey CRNP [Specified Professional Personl, Cardiology] - 05/15/25 10:40 am
Pauline Zeng MD [Family Provider, Internal Medicine] - in three to four weeks
Referral Note: Please make an appointment in four to six weeks.
Jeremiah Sorenson MD [Active, Cardiac Surgery] - 05/08/25 1:15 pm
Prescriptions:
New
furosemide 40 mg Tablet
40 mg PO DAILY Qty: 20 0RF
Rx Instructions:
Take 40 mg twice a day for 3-days at 8AM and 3 PM. Then 40 mg daily for 4-days at 8 AM.
potassium chloride 20 mEq Tablet,Er Particles/Crystals
20 meq PO DAILY Qty: 14 0RF
Rx Instructions:
Take daily with furosemide (Lasix) in AM then discontinue when Lasix stops.
gabapentin 100 mg Capsule
100 mg PO TID 14 Days Qty: 42 0RF
ferrous sulfate [FeroSul] 325 mg (65 mg iron) Tablet
325 mg PO DAILY 30 Days Qty: 0 0RF
metoprolol succinate 25 mg Tablet Extended Release 24 Hr
25 mg PO BID Qty: 60 0RF
acetaminophen 325 mg Tablet
650 mg PO Q6HPRN PRN (Reason: mild pain,headache,temp >101F ) Qty: 0 0RF
sennosides-docusate sodium 8.6-50 mg Tablet
1 tab PO [id number] PRN (Reason: Constipation) Qty: 0 0RF
oxycodone 5 mg Tablet
2.5 - 5 mg PO Q6HPRN PRN (Reason: moderate to severe pain) Qty: 10 0RF
ascorbic acid (vitamin C) [Vitamin C] 500 mg Tablet
500 mg PO DAILY 30 Days Qty: 30 0RF
dapagliflozin propanediol 10 mg Tablet
10 mg PO DAILY Qty: 30 0RF
cyclobenzaprine 10 mg Tablet
5 mg PO Q8HPRN PRN (Reason: muscle spasm) Qty: 10 0RF
Continued
clopidogrel 75 MG tablet
75 mg PO DAILY
aspirin 81 MG tablet,delayed release (DR/EC)
81 mg PO DAILY
ezetimibe 10 MG tablet
10 mg PO HS
tamsulosin 0.4 MG capsule
0.8 mg PO DAILY
metformin 500 MG tablet
1,000 mg PO BID@0800,1700
amitriptyline 10 MG tablet
10 mg PO HS
cholecalciferol (vitamin D3) [Vitamin D3] 25 mcg (1,000 unit) Tablet
50 mcg PO DAILY
multivitamin Tablet
1 tab PO DAILY
famotidine 20 mg tablet
20 mg PO BIDPRN PRN (Reason: acid reflux/heartburn)
levothyroxine 125 mcg tablet
125 mcg PO DAILY AT 0700
finasteride 5 mg tablet
5 mg PO DAILY
diazepam 5 mg tablet
5 mg PO HSPRN PRN (Reason: sleep)
Patient Comments:
07/30/2023: last filled 06/09/23, 14 tabs for 14 days from [facility]#2039
coenzyme Q10 [Co Q-10] 100 mg Capsule
100 mg PO DAILY
Ozempic 0.25 mg or 0.5 mg (2 mg/3 mL) pen injector
0.5 mg SC CAMACHO
rosuvastatin 40 mg Tablet
40 mg PO DAILY
fluticasone propionate 1 SPRAY spray,suspension
1 spray intranasal DAILY PRN (Reason: nasal congestion) Qty: 0 0RF
Patient Comments:
PRN; taken several months ago
Discontinued
flaxseed oil 1,000 MG capsule
3,000 mg PO DAILY
nitroglycerin 0.4 MG tablet, sublingual
0.4 mg sublingual [id number] PRN (Reason: chest pain)
amlodipine 10 MG tablet
10 mg PO DAILY Qty: 30 3RF
carvedilol 25 mg tablet
25 mg PO BID
valsartan 160 mg tablet
160 mg PO BID
isosorbide mononitrate 30 mg Tablet Extended Release 24 Hr
30 mg PO DAILY Qty: 30 0RF
Discharge Orders:
Discharge Patient (As Directed); Ordered 04/10/25
Ordered By: Heaven Deng
Care Plan Goals
Care Plan Goals:
Problem: Readiness for enhanced knowledge related to diagnosis and treatment plan
Goal: Understand your diagnosis and treatment plan needs, including medications if applicable.
Instructions: Know your diagnosis, underlying causes and treatment plan options, including medications if applicable. Consult with your health care team to learn about your diagnosis and treatment plan, including medications if applicable.
Discharge Date and Time
Discharge Date/Time: 04/10/25 13:58
Print Language: GAMBIAN
[2025-04-10] MEDS: MILK OF MAGNESIA 30 ML PO (12:20)
--- NOTE | 2025-04-10 13:39 | PTCARENOTE ---
Patient discharged to home and states full understanding of discharge instructions - has no further questions at this time; Patient belongings taken with patient; PIV x1 and telemetry pack removed; CHG shower completed; VSS; Patient taken by
wheelchair by volunteer escort to spouse's vehicle
== END 2025-04-10 13:58 | disposition home or self-care (01) | DRG 235 ==
LOC: CVICU 08:40
PROVIDERS: Anesthesiology; Hospitalist; Nurse Practitioner; Physician Assistant Medical; ADMITTING PHYSICIAN Hospitalist; ATTENDING PHYSICIAN Thoracic Surgery (Cardiothoracic Vascular Surgery); CONSULT PHYSICIAN Internal Medicine; CONSULT PHYSICIAN Internal Medicine Critical Care Medicine; EMERGENCY PHYSICIAN Emergency Medicine; FAMILY PHYSICIAN Internal Medicine
PROC: 02100Z9 Bypass Coronary Artery, One Artery from Left Internal Mammary, Open Approach (ICD-10-PCS; 2025-04-06)
PROC: 06BQ4ZZ Excision of Left Saphenous Vein, Percutaneous Endoscopic Approach (ICD-10-PCS; 2025-04-06)
PROC: B24BZZ4 Ultrasonography of Heart with Aorta, Transesophageal (ICD-10-PCS; 2025-04-06)
PROC: 021309W Bypass Coronary Artery, Four or More Arteries from Aorta with Autologous Venous Tissue, Open Approach (ICD-10-PCS; 2025-04-06)
PROC: 06BP4ZZ Excision of Right Saphenous Vein, Percutaneous Endoscopic Approach (ICD-10-PCS; 2025-04-06)
PROC: 5A1221Z Performance of Cardiac Output, Continuous (ICD-10-PCS; 2025-04-06)
PROC: 02L70CK Occlusion of Left Atrial Appendage with Extraluminal Device, Open Approach (ICD-10-PCS; 2025-04-06)
PROC: 30233N1 Transfusion of Nonautologous Red Blood Cells into Peripheral Vein, Percutaneous Approach (ICD-10-PCS; 2025-04-06)
DX: I25.10 Atherosclerotic heart disease of native coronary artery without angina pectoris (principal); I21.4 Non-ST elevation (NSTEMI) myocardial infarction; J95.1 Acute pulmonary insufficiency following thoracic surgery; D62 Acute posthemorrhagic anemia; J98.11 Atelectasis; E87.1 Hypo-osmolality and hyponatremia; I12.9 Hypertensive chronic kidney disease with stage 1 through stage 4 chronic kidney disease, or unspecified chronic kidney disease; E78.00 Pure hypercholesterolemia, unspecified; E11.22 Type 2 diabetes mellitus with diabetic chronic kidney disease; I44.0 Atrioventricular block, first degree; D63.1 Anemia in chronic kidney disease; N18.30 Chronic kidney disease, stage 3 unspecified; N40.0 Benign prostatic hyperplasia without lower urinary tract symptoms; G43.909 Migraine, unspecified, not intractable, without status migrainosus; E66.9 Obesity, unspecified; E03.9 Hypothyroidism, unspecified; E11.65 Type 2 diabetes mellitus with hyperglycemia; R33.8 Other retention of urine; Y83.2 Surgical operation with anastomosis, bypass or graft as the cause of abnormal reaction of the patient, or of later complication, without mention of misadventure at the time of the procedure; E87.70 Fluid overload, unspecified; E86.1 Hypovolemia; I95.1 Orthostatic hypotension; R00.0 Tachycardia, unspecified; I25.2 Old myocardial infarction; Z68.30 Body mass index [BMI] 30.0-30.9, adult; Z79.02 Long term (current) use of antithrombotics/antiplatelets; Z79.82 Long term (current) use of aspirin; Z79.84 Long term (current) use of oral hypoglycemic drugs; Z79.85 Long-term (current) use of injectable non-insulin antidiabetic drugs; Z79.899 Other long term (current) drug therapy; Z95.5 Presence of coronary angioplasty implant and graft; Z87.891 Personal history of nicotine dependence
CPT/HCPCS: 36600; 70450; 71045; 71046; 71250; 80048; 80053; 81003; 81015; 82248; 82330; 82565; 82805; 82810; 82947; 82962; 83735; 84132; 84302; 84484; 84520; 85014; 85018; 85025; 85027; 85049; 85610; 85652; 85730; 86140; 86850; 86900; 86901; 86920; 93005; 93312; 93320; 93325; 93880; 94002; 99285; J2916; P9016

== ENCOUNTER 2025-04-17 12:22 | Emergency (ER) | payer OTHER, SELFPAY ==
[2025-04-17 12:34] VITALS: BP 93/67
[2025-04-17 13:14] LABS: Hematocrit 32.7 % (39.0-52.0); Hemoglobin 10.7 g/dL (13.0-18.0); Mean Corp Hgb Conc. 32.7 g/dL (33.0-37.0); Mean Corpuscular Volume 91.1 fL (80.0-94.0); Nucleated Red Blood Cells % 0 % (-); Platelet Count 464 10^3/uL (130-400); Red Cell Dist. Width 13.3 % (11.5-14.5)
[2025-04-17 13:18] VITALS: BP 119/70
[2025-04-17 13:23] VITALS: BP 119/70; BMI 29.1
--- NOTE | 2025-04-17 13:34 | ED.GENMED ---
History of Present Illness
General
Chief Complaint: Heart Rate Problem
Source: patient and spouse
Time Seen by Provider: 04/17/25 13:18
History of Present Illness
History of Present Illness:
74-year-old male presents to the emergency room complaining of cough which is essentially nonproductive. Patient is postop day 11 from bypass surgery. Patient feels like he is rehabilitating well. He was able to walk around his [place] several
times last evening. He denies any fever. He has been experiencing a cough which seems worse over the past 12 to 24 hours. He is also noted to touch more swelling in his lower extremities. Patient's primary care doctor ordered a chest x-ray today
which showed ' fluid on his left lung'. Therefore he was sent to the emergency room for further evaluation. Patient does not feel short of breath even with exertion.
Past History
Past History
ED Past Medical History: CAD, HTN, Hypercholesterolemia, NIDDM, PR and Other (Presumed optic neuritis right eye July 2023)
ED Past Surgical History: Cardiac, Orthopedic and Other
Patient has exhibited threatening behavior?: No
PSI?: No
Social History
Tobacco: Non-smoker
Alcohol: Occasional
Drug: None
Personal:
Living: with family
Employment: Employed
Family History
Family History: Other (Reviewed and noncontributory)
Phy Exam
Physical Exam
Physical Exam:
General: Awake, Alert, Oriented X3. No acute distress. Patient appears somewhat pale.
Vitals: Mildly tachycardic
Head: Atraumatic
Eyes: Pupils equal, EOMI
Throat: Airway intact, no exudates
Neck: Trachea midline
Lungs: Decreased breath sounds left base
Heart: Regular rate, no murmurs
Abd: Soft, Nontender, No pulsatile mass
Neuro: Nonfocal
Skin: Warm, dry, no rash
Extremities: pulses equal b/l, no edema
Course
Orders/Labs/Results
Orders:
Orders
04/17/25 12:24
EKG [Electrocardiogram (*1)] Urgent
Reason for Study: Tachycardia
04/17/25 12:25
EKG- Treatment ONCE
04/17/25 12:36
Cardiac Monitoring- Treatment ONCE
EKG- Treatment ONCE
IV Insert/Care/Rem.- Treatment PRN
O2 Therapy [RESP] Urgent
Titrate/Wean O2 to maintain O2 sat greater than (%): 90
Special Instructions: Maintain sats >/=90%
Pulse Ox/spot Check [RESP] Urgent
Quantity: 1
Special Instructions: ON ROOM AIR
04/17/25 12:48
Complete Blood Count/With Diff Urgent
Comprehensive Metabolic Panel Urgent
04/17/25 13:53
BNP [NT-proBNP] Urgent
04/17/25 15:35
Furosemide [Lasix] 40 mg IV NOW STA
Abnormal Lab Results
04/17/25
12:48
WBC 12.1 H 10^3/uL
(4.8-10.8)
RBC 3.59 L 10^6/uL
(4.70-6.10)
Hgb 10.7 L g/dL
(13.0-18.0)
Hct 32.7 L %
(39.0-52.0)
MCHC 32.7 L g/dL
(33.0-37.0)
Plt Count 464 H 10^3/uL
(130-400)
Abs Immat Gran (auto) 0.1 H 10^3/uL
(0-0.05)
Absolute Neuts (auto) 9.5 H 10^3/uL
(1.4-6.5)
Absolute Monos (auto) 0.7 H 10^3/uL
(0.1-0.6)
Immature Gran % 0.6 H %
(0-0.5)
Neutrophils % 78.0 H %
(42.2-75.2)
Lymphocytes % 12.1 L %
(20.5-51.1)
Creatinine 1.4 H mg/dL
(0.7-1.3)
Glucose 149 H mg/dl
(70-99)
04/17/25 12:48
04/17/25 12:48
Vital Signs
Initial and Last Documented VS:
Initial Vital Signs
Temp Pulse Resp BP Pulse Ox
97.5 F 105 16 93/67 97
04/17/25 12:34 04/17/25 12:34 04/17/25 12:34 04/17/25 12:34 04/17/25 12:34
Last Documented Vital Signs
Temp Pulse Resp BP Pulse Ox
98.2 F 99 20 144/71 98
04/17/25 13:23 04/17/25 16:06 04/17/25 16:06 04/17/25 16:06 04/17/25 16:06
MDM/Problems Addressed
Differential Diagnosis Includes:
Pneumonia, postoperative pleural effusion, heart failure
MDM/Problems Addressed:
Labs here look good. His white count is essentially the same as when he was discharged. His hemoglobin is uptrending. Platelet count is elevated but expected in the postoperative setting. Chemistries show a creatinine 1.4 which is again
essentially the same as when he was discharged. BNP 1780. I reviewed the chest x-ray that was obtained earlier today. It does show a left-sided pleural effusion which is not large. After labs returned I discussed the patient's presentation with
Dr. Leonard. He agrees with a dose of IV Lasix here and reinstituting 20 mg of Lasix a day. Increase metoprolol to 50 twice daily. Patient Horacio came to the emergency room due to evaluate the patient
*Radiology
Radiology exam reviewed: radiology read reviewed
*Pulse Oximetry
SaO2: 97
Oxygen Mode of Delivery: Room air
Patient hypoxic: no
*EKG
Interpreted by ED Provider?: Yes
Heart Rate: 102
Rate: tachycardiac
Rhythm: sinus tachycardia
[place]: normal axis
Interval: normal interval
QRS Pattern: normal QRS
Ischemia: non-specific ST changes
*[employer] Interpretation
Rate: tachycardiac
Interpretation: abnormal
Heart Rate: 102
Rhythm: sinus tachycardia
*Critical Care Note
Total Time (30-74mins, 75-104mins- exclusive of procedures): Not Applicable
Data Reviewed
Review of Other/Old Records Reveals: Operative Reports and Discharge Summary
ED Attending Note
-
Portions of this chart may have been created with voice recognition software.� Occasional wrong word or��sound alike� substitutions may have occurred due to the inherent limitations of voice recognition software.
Discharge Plan
Departure
Patient Disposition: Home (Routine Discharge)
Date of Disposition: 04/17/25
Time of Disposition: 15:45
Patient with high blood pressure during this ER visit?: No
Condition: Good
Discharge Problem:
Pleural effusion on left, Heart palpitations
Instructions: Pleural effusion, Heart Palpitations
Prescriptions:
New
furosemide [Lasix] 20 mg tablet
20 mg PO DAILY Qty: 30 0RF
No Action
clopidogrel 75 MG tablet
75 mg PO DAILY
aspirin 81 MG tablet,delayed release (DR/EC)
81 mg PO DAILY
ezetimibe 10 MG tablet
10 mg PO HS
tamsulosin 0.4 MG capsule
0.8 mg PO DAILY
metformin 500 MG tablet
1,000 mg PO BID@0800,1700
amitriptyline 10 MG tablet
10 mg PO HS
cholecalciferol (vitamin D3) [Vitamin D3] 25 mcg (1,000 unit) Tablet
50 mcg PO DAILY
multivitamin Tablet
1 tab PO DAILY
famotidine 20 mg tablet
20 mg PO BIDPRN PRN (Reason: acid reflux/heartburn)
levothyroxine 125 mcg tablet
125 mcg PO DAILY AT 0700
finasteride 5 mg tablet
5 mg PO DAILY
diazepam 5 mg tablet
5 mg PO HSPRN PRN (Reason: sleep)
Patient Comments:
07/30/2023: last filled 06/09/23, 14 tabs for 14 days from [id number]
coenzyme Q10 [Co Q-10] 100 mg Capsule
100 mg PO DAILY
Ozempic 0.25 mg or 0.5 mg (2 mg/3 mL) pen injector
0.5 mg SC CAMACHO
rosuvastatin 40 mg Tablet
40 mg PO DAILY
furosemide 40 mg Tablet
40 mg PO DAILY Qty: 20 0RF
Rx Instructions:
Take 40 mg twice a day for 3-days at 8AM and 3 PM. Then 40 mg daily for 4-days at 8 AM.
potassium chloride 20 mEq Tablet,Er Particles/Crystals
20 meq PO DAILY Qty: 14 0RF
Rx Instructions:
Take daily with furosemide (Lasix) in AM then discontinue when Lasix stops.
gabapentin 100 mg Capsule
100 mg PO TID 14 Days Qty: 42 0RF
ferrous sulfate [FeroSul] 325 mg (65 mg iron) Tablet
325 mg PO DAILY 30 Days Qty: 0 0RF
metoprolol succinate 25 mg Tablet Extended Release 24 Hr
25 mg PO BID Qty: 60 0RF
acetaminophen 325 mg Tablet
650 mg PO Q6HPRN PRN (Reason: mild pain,headache,temp >101F ) Qty: 0 0RF
sennosides-docusate sodium 8.6-50 mg Tablet
1 tab PO [id number] PRN (Reason: Constipation) Qty: 0 0RF
oxycodone 5 mg Tablet
2.5 - 5 mg PO Q6HPRN PRN (Reason: moderate to severe pain) Qty: 10 0RF
ascorbic acid (vitamin C) [Vitamin C] 500 mg Tablet
500 mg PO DAILY 30 Days Qty: 30 0RF
fluticasone propionate 1 SPRAY spray,suspension
1 spray intranasal DAILY PRN (Reason: nasal congestion) Qty: 0 0RF
Patient Comments:
PRN; taken several months ago
dapagliflozin propanediol 10 mg Tablet
10 mg PO DAILY Qty: 30 0RF
cyclobenzaprine 10 mg Tablet
5 mg PO Q8HPRN PRN (Reason: muscle spasm) Qty: 10 0RF
Referrals:
Felicitas Zeng, [employer] [Family Provider, General]
Activity Restrictions/Additional Instructions:
Your cough appears to be related to the fluid collection noted on your chest x-ray which is small. We have given you a dose of Lasix through your IV to start getting rid of some of the fluid. I sent a prescription for Lasix for you to take orally
as well. Because you are losing weight on the higher dose I sent 20 mg tablets to take once a day. You can see how this is working and Dr. Sorenson can make any necessary adjustments. Dr. Leonard also recommends increasing the metoprolol to 50 mg
twice a day.
Interventions
Interventions:
*Risk Screen - Suicide Last Done: 04/17/25 12:34
*General Assessment Last Done: 04/17/25 12:34
*Neglect/Abuse Screening Last Done: 04/17/25 16:06
*ED COVID-19 Vaccine History Last Done: 04/17/25 16:06
*Nursing Disposition Last Done: 04/17/25 16:06
ED- Cardiac Assessment Last Done: 04/17/25 13:23
ED- Pulmonary Assessment Last Done: 04/17/25 13:23
Discharge Date and Time
Discharge Date/Time: 04/17/25 16:08
Print Language: SAMMARINESE
[2025-04-17 13:41] LABS: ALT (SGPT) 17 U/L (0-50); AST (SGOT) 19 U/L (17-59); Albumin 3.9 g/dl (3.5-5.0); Alkaline Phosphatase 56 U/L (38-126); Blood Urea Nitrogen 17 mg/dl (9-20); Calcium 9.5 mg/dl (8.4-10.2); Carbon Dioxide 26 mmol/L (22-30); Chloride 104 mmol/L (98-107); Estimated Creatinine Clearance 48 ml/min; Glucose 149 mg/dl (70-99); Potassium 4.0 mmol/L (3.5-5.1); Sodium 137 mmol/L (135-145); Total Protein 6.8 g/dl (6.3-8.2); eGFR 53.40
[2025-04-17 15:21] VITALS: BP 140/81
[2025-04-17] MEDS: LASIX 40 MG IV (15:48)
[2025-04-17 16:06] VITALS: BP 144/71
== END 2025-04-17 16:08 | disposition home or self-care (01) ==
LOC: EMR 12:22
PROVIDERS: Student in an Organized Health Care Education/Training Program; EMERGENCY PHYSICIAN Emergency Medicine; FAMILY PHYSICIAN Nurse Practitioner; OTHER PHYSICIAN Internal Medicine Cardiovascular Disease
DX: J90 Pleural effusion, not elsewhere classified (principal); R00.2 Palpitations; R00.0 Tachycardia, unspecified; E11.9 Type 2 diabetes mellitus without complications; E78.00 Pure hypercholesterolemia, unspecified; I10 Essential (primary) hypertension; R22.43 Localized swelling, mass and lump, lower limb, bilateral; I25.10 Atherosclerotic heart disease of native coronary artery without angina pectoris; Z95.1 Presence of aortocoronary bypass graft; Z79.899 Other long term (current) drug therapy
CPT/HCPCS: 99285; 96374; 71046; 80053; 83880; 85025; 93005

== ENCOUNTER 2025-05-29 15:21 | Outpatient (RCR) | payer OTHER, SELFPAY ==
[2025-05-18 14:21] LABS: Glucose - Point of Care 112 mg/dl (70-99)
[2025-05-18 15:03] LABS: Glucose - Point of Care 103 mg/dl (70-99)
[2025-05-22 14:59] LABS: Glucose - Point of Care 101 mg/dl (70-99)
[2025-05-22 15:50] LABS: Glucose - Point of Care 90 mg/dl (70-99)
[2025-05-24 14:46] LABS: Glucose - Point of Care 167 mg/dl (70-99)
[2025-05-24 15:41] LABS: Glucose - Point of Care 112 mg/dl (70-99)
[2025-05-26 14:48] LABS: Glucose - Point of Care 150 mg/dl (70-99)
[2025-05-26 15:46] LABS: Glucose - Point of Care 128 mg/dl (70-99)
== END 2025-05-29 23:59 | disposition home or self-care (01) ==
LOC: CRHB 15:21
PROVIDERS: ATTENDING PHYSICIAN Internal Medicine Cardiovascular Disease; FAMILY PHYSICIAN Internal Medicine
DX: I25.2 Old myocardial infarction (principal); Z95.1 Presence of aortocoronary bypass graft
CPT/HCPCS: 82962; G0422; G0423

== ENCOUNTER 2025-07-03 16:09 | Outpatient (RCR) | payer OTHER, SELFPAY ==
[2025-06-07 14:55] LABS: Glucose - Point of Care 205 mg/dl (70-99)
[2025-06-07 15:57] LABS: Glucose - Point of Care 122 mg/dl (70-99)
[2025-06-09 14:39] LABS: Glucose - Point of Care 217 mg/dl (70-99)
[2025-06-09 15:34] LABS: Glucose - Point of Care 102 mg/dl (70-99)
== END 2025-07-03 23:59 | disposition home or self-care (01) ==
LOC: CRHB 16:09
PROVIDERS: ATTENDING PHYSICIAN Internal Medicine Cardiovascular Disease; FAMILY PHYSICIAN Internal Medicine
DX: I25.2 Old myocardial infarction (principal); I25.10 Atherosclerotic heart disease of native coronary artery without angina pectoris (principal); Z95.1 Presence of aortocoronary bypass graft
CPT/HCPCS: 82962; G0422; G0423

== ENCOUNTER 2025-08-04 16:12 | Outpatient (RCR) | payer OTHER, SELFPAY | END 2025-08-04 23:59 | disposition home or self-care (01) | LOC: CRHB 16:12 | PROVIDERS: ATTENDING PHYSICIAN Internal Medicine Cardiovascular Disease; FAMILY PHYSICIAN Internal Medicine | DX: I21.4 Non-ST elevation (NSTEMI) myocardial infarction (principal); I25.10 Atherosclerotic heart disease of native coronary artery without angina pectoris (principal); Z95.1 Presence of aortocoronary bypass graft; I25.2 Old myocardial infarction | CPT/HCPCS: G0422; G0423 ==

== ENCOUNTER 2025-08-21 15:21 | Outpatient (RCR) | payer OTHER, SELFPAY | END 2025-08-21 16:35 | disposition home or self-care (01) | LOC: CRHB 15:21 | PROVIDERS: ATTENDING PHYSICIAN Internal Medicine Cardiovascular Disease; FAMILY PHYSICIAN Internal Medicine | DX: I25.2 Old myocardial infarction; I25.10 Atherosclerotic heart disease of native coronary artery without angina pectoris; Z95.1 Presence of aortocoronary bypass graft | CPT/HCPCS: G0422; G0423 ==